=== PATIENT | male | born 1955 | race Caucasian/White ===

== ENCOUNTER 2020-07-22 07:31 | Day surgery (SDC) | payer OTHER, SELFPAY ==
[2020-07-22 07:41] VITALS: BMI 32.5
[2020-07-22 07:52] VITALS: BP 124/94; PULSE 72; RESP 18; TEMP 36.3; O2SAT 98
[2020-07-22] MEDS: Lactated Ringers 1,000 ML 50 ML IVCONT (08:06)
--- NOTE | 2020-07-22 08:06 | P.CONAN_ITS ---
FORMERLY [facility] Past Medical History Medical History Knee joint cyst Social History Social History Smoking Status: Never smoker Use of substances other than those prescribed or required for medical reasons: No Have you been hit, kicked, punched, or otherwise hurt by someone within the past year? If so, by whom?: No Advance Directives: No Advance Directives Information Provided: Yes Meds Allergies Allergy/AdvReac Type Severity Reaction Status Date / Time amlodipine [AMLODIPINE] Allergy Unknown AGGRESSION, Verified 07/22/20 07:40 increase rage amitriptyline [AMITRIPTYLINE] AdvReac Unknown AGGRESSION Verified 07/22/20 07:40 Exam Exam Date and Time: July 22, 2020805 Height,Weight and Vital Signs: Height 6 ft Weight 108.912 kg Last Vital Signs Temp 97.3 F 07/22/20 07:52 Pulse 72 07/22/20 07:52 Resp 18 07/22/20 07:52 BP 124/94 H 07/22/20 07:52 Pulse Ox 98 07/22/20 07:52 Airway Mallampati Class: II TM Dist: >3cm Neck ROM: Full Loose/Missing/Broken Teeth: No Heart: rrr+[id number] Lungs: cta b/l Assessment and Plan Assessment Anesthesia Assessment: Anesthesia Plan Discussed and Chart Reviewed Final Anesthetic Review NPO: Yes ASA Class: II Final Preanesthetic Review: No Changes in Pt Med Stat, Meds/Allgs Chart Reviewed, Consent Obtained/Reviewed and Anes Risks/Benef Reviewed Patient Risk: Low Procedure Risk: Low Assessment/Block/Sedation in SS: Assess/Block/Sedation-SS Anesthetic Plan Anesthetic Plan: MAC: Disposition: Standard PACU
[2020-07-22 09:05] VITALS: BP 109/80; PULSE 73; RESP 16; TEMP 36.2; O2SAT 97
--- NOTE | 2020-07-22 09:16 | PM.OP ---
Brief Operative Note Date of Service: 07/22/20 Pre-op diagnosis: Olmos's with low grade dysplasia Post-op diagnosis: other (Same. Hiatal hernia) Procedure: EGD with Biopsies and WATS brushings Surgeon: Asaf Rosales Anesthesia: MAC Estimated blood loss (mL): 3.0 Pathology: other (A. Esophagus at 36 B. Esophagus at 34 C. Esophagus at 32 D, Esophagus at 30 E. Esophagus at 28 F. Esophagus at 26 WATS specimens sent to outside lab) Condition: stable Disposition: other
[2020-07-22 09:20] VITALS: BP 114/85; PULSE 75; RESP 16; TEMP 36.2; O2SAT 98
[2020-07-22 09:36] VITALS: BP 120/88; PULSE 65; RESP 16; O2SAT 98
--- NOTE | 2020-07-22 09:51 | HO.POSTANES ---
Post Anesthesia Evaluation Post Anesthesia Evaluation Vital Signs: Vital Signs Temp Pulse Resp BP Pulse Ox 07/22/20 09:36 97.1 F 65 16 120/88 98 07/22/20 09:20 97.1 F 75 16 114/85 98 07/22/20 09:05 97.1 F 73 16 109/80 97 07/22/20 07:52 97.3 F 72 18 124/94 H 98 Anesthesia: Monitored Mental Status: Awake Pain Control: Satisfactory Nausea/Vomiting: None Hydration: Adequate Anesthesia-Related Issues: No Anes. Related Issues
--- NOTE | 2020-07-22 10:04 | OP_ITS ---
SURGEON: Asaf Rosales MD INDICATIONS: The patient presents for evaluation of Olmos's esophagus with low-grade dysplasia. Full consent has been obtained from him for this, including risks of bleeding and perforation. PREOPERATIVE DIAGNOSIS: Olmos's esophagus with low-grade dysplasia. POSTOPERATIVE DIAGNOSIS: PROCEDURE PERFORMED: Esophagogastroduodenoscopy with biopsies and brushing specimens obtained by WATS technique. ESTIMATED BLOOD LOSS: COMPLICATIONS: ANESTHESIA: Monitored anesthesia care. ASSISTANTS: SPECIMENS: POSTOPERATIVE DIAGNOSES: Olmos's esophagus with low-grade dysplasia, hiatal hernia. DESCRIPTION OF PROCEDURE: The patient was placed in the left lateral decubitus position. The Olympus video gastroscope was passed in the posterior oropharynx and upper esophagus under direct vision. The scope was passed slowly to the distal esophagus. The gastroesophageal junction appeared at 36 cm. Extending from this to 26 cm was a circumferential segment of Olmos's mucosa. There were several areas consistent with islands of squamous-appearing mucosa within the area of the Olmos's mucosa. There was no sign of any ulcerations, mass, nor nodules. There was no esophagitis. The scope was entered into the stomach. There was a moderate-sized hiatal hernia with the diaphragmatic indentation seen at approximately 40 cm. The hiatal hernia mucosa appeared normal. The scope was advanced to the pylorus and the duodenum was cannulated the descending portion. The duodenum including the bulb appeared normal without mass or ulceration. The scope was withdrawn back into the stomach. The gastric antrum and body appeared normal with good peristalsis. The scope was retroflexed visualizing the proximal stomach carefully, which appeared normal, without any sign of mass or ulceration. The scope was straightened and withdrawn back into the esophagus. I proceeded to obtain multiple biopsies with the cold biopsy forceps at a level of 36 cm, 34 cm, 32 cm, 30 cm, 28 cm, and 26 cm. I then proceeded to obtain specimens with the WATS brush at a level between 31 and 36 cm and at a level between 26 and 31 cm. Proximal to 26 cm, the esophageal mucosa appeared normal. The scope was then withdrawn from the patient. He tolerated the procedure well and was returned to recovery area in stable condition. IMPRESSION: 1. History of Olmos's esophagus with low-grade dysplasia. 2. Hiatal hernia. PLAN: The results of the pathology will be checked. He will continue his current regimen of the lansoprazole twice a day. We shall decide about referral to [facility] to discuss potential ablation of the Olmos's mucosa if the low-grade dysplasia persists. Certainly, if there is any evidence of high-grade dysplasia or intramucosal carcinoma, he would then definitely need referral for the ablation procedure. He was advised not to use any aspirin and NSAIDs for 1 week. If he is not going to have the ablation procedure done, I would then recommend a repeat upper endoscopy within 1 year. This has been discussed with his . MD CHARLOTTE Gan/ARELI / [id number] MTDD
== END 2020-07-22 10:08 | disposition home or self-care (01) ==
PROVIDERS: PCP Internal Medicine; Visit Provider Internal Medicine
PROC: 0DJ08ZZ Inspection of Upper Intestinal Tract, Via Natural or Artificial Opening Endoscopic (ICD-10-PCS; CPT 43235; principal; 2020-07-22 08:30)
DX: K22.711 Barrett's esophagus with high grade dysplasia (principal); K44.9 Diaphragmatic hernia without obstruction or gangrene; K20.90 Esophagitis, unspecified without bleeding; Z79.899 Other long term (current) drug therapy; Z88.8 Allergy status to other drugs, medicaments and biological substances
CPT/HCPCS: 43239; 88305

== ENCOUNTER 2020-08-12 09:33 | Outpatient (REF) | payer OTHER, SELFPAY ==
[2020-08-12 11:03] LABS: MANUAL DIFF FLAG NO
[2020-08-12 11:13] LABS: Basophils Absolute Auto 0.1 X10*3/uL (0.0-0.2); Basophils Percent Auto 0.7 % (0-2); Eosinophils Absolute Auto 0.4 X10*3/uL (0.0-0.4); Eosinophils Percent Auto 4.8 % (0-4); Hematocrit 43.2 % (42-52); Hemoglobin 14.2 g/dl (14.0-18.0); Imm Gran Abs Auto 0.01 X10*3/uL (0.00-0.03); Imm Gran Pct Auto 0.1 % (0.0-0.4); Lymphocytes Absolute Auto 2.2 X10*3/uL (1.2-4.9); Lymphocytes Percent Auto 29.3 % (20-40); Mean Corpuscular HGB Conc 32.9 g/dl (31.0-36.0); Mean Corpuscular Hemoglobin 29.6 pg (27.0-33.0); Mean Corpuscular Volume 90.2 fL (80-98); Mean Platelet Volume 9.5 fL (9.4-12.4); Monocytes Absolute Auto 0.5 X10*3/uL (0.1-1.2); Monocytes Percent Auto 6.9 % (2-11); Neutrophils Absolute Auto 4.4 X10*3/uL (2.0-8.3); Neutrophils Percent Auto 58.2 % (45-73); Platelet Count 261 X10*3/uL (160-400); Red Blood Count 4.79 X10*6/uL (4.60-5.80); Red Cell Distribution Width 12.4 % (11.0-16.0); White Blood Count 7.6 X10*3/uL (4.8-10.8)
[2020-08-12 11:41] LABS: Alanine Aminotransferase 25 U/L (0-40); Anion Gap 17 (12-20); Aspartate Amino Transferase 22 U/L (5-37); Blood Urea Nitrogen 13 mg/dL (9-16); Calcium 9.2 mg/dL (8.4-10.2); Carbon Dioxide 25 mmol/L (22-29); Chloride 102 mmol/L (96-108); Cholesterol 171 mg/dL; Estimated Glomerular Filt Rate > 60; Glucose Random 94 mg/dL (60-115); HDL Cholesterol 45 mg/dL; LDL Cholesterol Calculated 90 mg/dl; Sodium 140 mmol/L (135-145); Triglycerides 182 mg/dL
[2020-08-13 11:07] LABS: Free Prostate Spec Ag 0.1 ng/mL; Percent Free Prostate Spec Ag 33 % (calc) (>25); Prostate Specific Ag Total 0.3 ng/mL (< OR = 4.0)
== END 2020-08-12 09:34 | disposition home or self-care (01) ==
LOC: HO.HMGCLDS 09:33
PROVIDERS: PCP Internal Medicine; Visit Provider Internal Medicine
DX: I10 Essential (primary) hypertension (principal); E78.5 Hyperlipidemia, unspecified; K21.9 Gastro-esophageal reflux disease without esophagitis; K22.70 Barrett's esophagus without dysplasia; F33.42 Major depressive disorder, recurrent, in full remission; R35.1 Nocturia; Z12.5 Encounter for screening for malignant neoplasm of prostate
CPT/HCPCS: 36415; 80048; 80061; 84153; 84154; 84450; 84460; 85025

== ENCOUNTER 2021-05-12 08:18 | Outpatient (REF) | payer OTHER, SELFPAY ==
[2021-05-12 11:27] LABS: MANUAL DIFF FLAG NO
[2021-05-12 11:36] LABS: Basophils Percent Auto 0.4 % (0-2); Eosinophils Absolute Auto 0.2 X10*3/uL (0.0-0.4); Eosinophils Percent Auto 3.1 % (0-4); Hematocrit 41.8 % (42-52); Hemoglobin 14.1 g/dl (14.0-18.0); Imm Gran Abs Auto 0.01 X10*3/uL (0.00-0.03); Imm Gran Pct Auto 0.1 % (0.0-0.4); Lymphocytes Absolute Auto 1.7 X10*3/uL (1.2-4.9); Lymphocytes Percent Auto 24.4 % (20-40); Mean Corpuscular HGB Conc 33.7 g/dl (31.0-36.0); Mean Corpuscular Hemoglobin 30.5 pg (27.0-33.0); Mean Corpuscular Volume 90.3 fL (80-98); Mean Platelet Volume 9.8 fL (9.4-12.4); Monocytes Absolute Auto 0.5 X10*3/uL (0.1-1.2); Monocytes Percent Auto 7.4 % (2-11); Neutrophils Absolute Auto 4.6 X10*3/uL (2.0-8.3); Neutrophils Percent Auto 64.6 % (45-73); Platelet Count 273 X10*3/uL (160-400); Red Blood Count 4.63 X10*6/uL (4.60-5.80); White Blood Count 7.1 X10*3/uL (4.8-10.8)
[2021-05-12 12:11] LABS: Alanine Aminotransferase 21 U/L (0-40); Anion Gap 14 (12-20); Aspartate Amino Transferase 19 U/L (5-37); Blood Urea Nitrogen 12 mg/dL (9-16); Calcium 9.6 mg/dL (8.4-10.2); Carbon Dioxide 29 mmol/L (22-29); Chloride 101 mmol/L (96-108); Cholesterol 165 mg/dL; Estimated Glomerular Filt Rate > 60; Glucose Fasting 95 mg/dL (60-99); HDL Cholesterol 40 mg/dL; LDL Cholesterol Calculated 99 mg/dl; Potassium 3.4 mmol/L (3.3-5.1); Sodium 141 mmol/L (135-145); Triglycerides 130 mg/dL
== END 2021-05-12 08:19 | disposition home or self-care (01) ==
LOC: HO.HMGCLDS 08:18
PROVIDERS: PCP Internal Medicine; Visit Provider Internal Medicine
DX: E66.9 Obesity, unspecified (principal); E78.5 Hyperlipidemia, unspecified; I10 Essential (primary) hypertension; K22.70 Barrett's esophagus without dysplasia
CPT/HCPCS: 36415; 80048; 80061; 84450; 84460; 85025

== ENCOUNTER 2021-09-11 08:39 | Outpatient (REF) | payer OTHER, SELFPAY ==
[2021-09-11 11:22] LABS: MANUAL DIFF FLAG NO
[2021-09-11 11:32] LABS: Basophils Percent Auto 0.4 % (0-2); Eosinophils Absolute Auto 0.5 X10*3/uL (0.0-0.4); Eosinophils Percent Auto 7.5 % (0-4); Hematocrit 40.7 % (42.0-52.0); Hemoglobin 13.4 g/dl (14.0-18.0); Imm Gran Abs Auto 0.02 X10*3/uL (0.00-0.03); Imm Gran Pct Auto 0.3 % (0.0-0.4); Lymphocytes Absolute Auto 1.7 X10*3/uL (1.2-4.9); Lymphocytes Percent Auto 23.6 % (20-40); Mean Corpuscular HGB Conc 32.9 g/dl (31.0-36.0); Mean Corpuscular Hemoglobin 29.5 pg (27.0-33.0); Mean Corpuscular Volume 89.5 fL (80.0-98.0); Mean Platelet Volume 9.4 fL (9.4-12.4); Monocytes Absolute Auto 0.6 X10*3/uL (0.1-1.2); Monocytes Percent Auto 7.6 % (2-11); Neutrophils Absolute Auto 4.4 x10*3/uL (2.0-8.3); Neutrophils Percent Auto 60.6 % (45-73); Platelet Count 268 X10*3/uL (160-400); Red Blood Count 4.55 X10*6/uL (4.60-5.80); Red Cell Distribution Width 13.2 % (11.0-16.0); White Blood Count 7.2 X10*3/uL (4.8-10.8)
[2021-09-11 11:45] LABS: Alanine Aminotransferase 20 U/L (0-40); Anion Gap 13 (12-20); Aspartate Amino Transferase 20 U/L (5-37); Blood Urea Nitrogen 16 mg/dL (9-16); Calcium 9.4 mg/dL (8.4-10.2); Carbon Dioxide 30 mmol/L (22-29); Chloride 101 mmol/L (96-108); Cholesterol 175 mg/dL; Estimated Glomerular Filt Rate > 60; Glucose Fasting 104 mg/dL (60-99); HDL Cholesterol 42 mg/dL; LDL Cholesterol Calculated 118 mg/dl; Potassium 3.8 mmol/L (3.3-5.1); Sodium 140 mmol/L (135-145); Triglycerides 78 mg/dL
[2021-09-11 12:08] LABS: Vitamin D 25-OH Total 29.2 ng/mL (>30)
== END 2021-09-11 08:40 | disposition home or self-care (01) ==
LOC: HO.HMGCLDS 08:39
PROVIDERS: PCP Internal Medicine; Visit Provider Internal Medicine
DX: E78.5 Hyperlipidemia, unspecified (principal); F33.40 Major depressive disorder, recurrent, in remission, unspecified; I10 Essential (primary) hypertension; K22.70 Barrett's esophagus without dysplasia; E66.9 Obesity, unspecified
CPT/HCPCS: 36415; 80048; 80061; 82306; 84450; 84460; 85025

== ENCOUNTER 2022-03-12 08:28 | Outpatient (REF) | payer MEDICARE, OTHER, SELFPAY ==
[2022-03-12 11:21] LABS: MANUAL DIFF FLAG NO
[2022-03-12 11:28] LABS: Basophils Absolute Auto 0.1 X10*3/uL (0.0-0.2); Basophils Percent Auto 0.5 % (0-2); Eosinophils Absolute Auto 0.3 X10*3/uL (0.0-0.4); Eosinophils Percent Auto 2.4 % (0-4); Hematocrit 40.8 % (42.0-52.0); Hemoglobin 13.9 g/dl (14.0-18.0); Imm Gran Abs Auto 0.04 X10*3/uL (0.00-0.03); Imm Gran Pct Auto 0.4 % (0.0-0.4); Lymphocytes Absolute Auto 2.4 X10*3/uL (1.2-4.9); Mean Corpuscular HGB Conc 34.1 g/dl (31.0-36.0); Mean Corpuscular Hemoglobin 30.2 pg (27.0-33.0); Mean Corpuscular Volume 88.5 fL (80.0-98.0); Mean Platelet Volume 9.9 fL (9.4-12.4); Monocytes Absolute Auto 0.7 X10*3/uL (0.1-1.2); Monocytes Percent Auto 6.4 % (2-11); Neutrophils Absolute Auto 7.3 x10*3/uL (2.0-8.3); Neutrophils Percent Auto 68.3 % (45-73); Platelet Count 250 X10*3/uL (160-400); Red Blood Count 4.61 X10*6/uL (4.60-5.80); White Blood Count 10.7 X10*3/uL (4.8-10.8)
[2022-03-12 12:01] LABS: Alanine Aminotransferase 19 U/L (0-40); Anion Gap 14 (12-20); Aspartate Amino Transferase 21 U/L (5-37); Blood Urea Nitrogen 12 mg/dL (9-16); Calcium 9.1 mg/dL (8.4-10.2); Carbon Dioxide 28 mmol/L (22-29); Chloride 100 mmol/L (96-108); Cholesterol 188 mg/dL; Estimated Glomerular Filt Rate > 60; Glucose Fasting 99 mg/dL (60-99); HDL Cholesterol 49 mg/dL; Iron 97 mcg/dL (45-160); LDL Cholesterol Calculated 114 mg/dl; Percent Iron Saturation 27 % (15-50); Potassium 3.3 mmol/L (3.3-5.1); Sodium 139 mmol/L (135-145); Total Iron Binding Capacity 362 mcg/dL (228-428); Triglycerides 129 mg/dL; Unsaturated Iron Binding 265 ug/dL
== END 2022-03-12 08:29 | disposition home or self-care (01) ==
LOC: HO.HMGCLDS 08:28
PROVIDERS: PCP Internal Medicine; Visit Provider Internal Medicine
DX: K22.70 Barrett's esophagus without dysplasia (principal); I10 Essential (primary) hypertension; E78.5 Hyperlipidemia, unspecified; R73.01 Impaired fasting glucose; D64.9 Anemia, unspecified; E66.9 Obesity, unspecified
CPT/HCPCS: 36415; 80048; 80061; 83540; 84450; 84460; 85025

== ENCOUNTER 2022-08-31 08:58 | Outpatient (REF) | payer MEDICARE, OTHER, SELFPAY ==
[2022-08-31 11:36] LABS: MANUAL DIFF FLAG NO
[2022-08-31 11:49] LABS: Basophils Percent Auto 0.6 % (0-2); Eosinophils Absolute Auto 0.5 X10*3/uL (0.0-0.4); Eosinophils Percent Auto 6.7 % (0-4); Hematocrit 41.5 % (42.0-52.0); Hemoglobin 13.7 g/dl (14.0-18.0); Imm Gran Abs Auto 0.01 X10*3/uL (0.00-0.03); Imm Gran Pct Auto 0.1 % (0.0-0.4); Lymphocytes Percent Auto 29.7 % (20-40); Mean Corpuscular Hemoglobin 29.5 pg (27.0-33.0); Mean Corpuscular Volume 89.2 fL (80.0-98.0); Mean Platelet Volume 9.5 fL (9.4-12.4); Monocytes Absolute Auto 0.5 X10*3/uL (0.1-1.2); Monocytes Percent Auto 7.3 % (2-11); Neutrophils Absolute Auto 3.8 x10*3/uL (2.0-8.3); Neutrophils Percent Auto 55.6 % (45-73); Platelet Count 259 X10*3/uL (160-400); Red Blood Count 4.65 X10*6/uL (4.60-5.80); Red Cell Distribution Width 13.2 % (11.0-16.0); White Blood Count 6.9 X10*3/uL (4.8-10.8)
[2022-08-31 12:39] LABS: Alanine Aminotransferase 21 U/L (0-40); Anion Gap 15 (12-20); Aspartate Amino Transferase 21 U/L (5-37); Blood Urea Nitrogen 12 mg/dL (9-16); Calcium 9.1 mg/dL (8.4-10.2); Carbon Dioxide 27 mmol/L (22-29); Chloride 105 mmol/L (96-108); Cholesterol 166 mg/dL; Estimated Glomerular Filt Rate > 60; Glucose Fasting 98 mg/dL (60-99); HDL Cholesterol 49 mg/dL; Iron 103 mcg/dL (45-160); LDL Cholesterol Calculated 89 mg/dl; PSA,Total (Free>4and<10) 0.34 ng/mL (0.00-4.00); Percent Iron Saturation 33 % (15-50); Potassium 3.9 mmol/L (3.3-5.1); Sodium 143 mmol/L (135-145); Total Iron Binding Capacity 315 mcg/dL (228-428); Triglycerides 144 mg/dL; Unsaturated Iron Binding 212 ug/dL; Vitamin D 25-OH Total 27.3 ng/mL (>30)
== END 2022-08-31 08:59 | disposition home or self-care (01) ==
LOC: HO.HMGCLDS 08:58
PROVIDERS: Visit Provider Internal Medicine
DX: Z12.5 Encounter for screening for malignant neoplasm of prostate (principal); D64.9 Anemia, unspecified; E66.9 Obesity, unspecified; I10 Essential (primary) hypertension; K22.70 Barrett's esophagus without dysplasia; E78.5 Hyperlipidemia, unspecified
CPT/HCPCS: 36415; 80048; 80061; 82306; 83540; 84153; 84450; 84460; 85025

== ENCOUNTER 2022-10-08 10:15 | Outpatient (AMB) | payer MEDICARE, OTHER, SELFPAY ==
--- NOTE | 2022-10-08 10:27 | MHC.PC.OV ---
Vital Signs 10/08/22 10:30 Height 6 ft Weight 247 lb BMI 33.5 BP 120/90 H Blood Pressure Location Lt brachial Position Sitting Pulse 74 Pulse Source Pulse Oximeter Pulse Oximetry (%) 98 Oxygen Delivery Method Room Air Intake Visit Reasons: Follow HTN, lipids, anxiety Intake Note: Patient here for HTN follow up. Has been having a lot of stress lately due his son being stuck in [place] for a few weeks. Allergies amlodipine [AMLODIPINE] Allergy (Unknown, Verified 04/26/23 01:42) AGGRESSION, increase rage amitriptyline [AMITRIPTYLINE] Adverse Reaction (Unknown, Verified 04/26/23 01:42) AGGRESSION Medication List - Last Reconciled 10/08/22 by Martha Nguyen MD bupropion HCl 300 mg PO QAM cholestyramine (with sugar) 4 gram grams PO BID hydrochlorothiazide 12.5 mg PO Q12H 90 days lansoprazole 30 mg PO BID latanoprost 0.005% drps ophthalmic (eye) losartan 25 mg PO DAILY potassium chloride ER 10 mEq PO DAILY 30 days simvastatin 20 mg PO DAILY Tobacco use date assessed: 10/08/22 Fall risk assessment: No Falls in past year Last assessed Fall Risk: 10/08/22 HPI Follow HTN, lipids, anxiety HPI Details 67-year-old male with hypertension, dyslipidemia, anxiety disorder, here today for his follow-up. He has been feeling well with no complaints at present time except for having more frequent anxiety attacks lately , worried about son who is currently in [place]. [facility] Medical History Long QT interval Left anterior fascicular block Anemia Mixed anxiety depressive disorder Traumatic rupture of quadriceps tendon Dislocation of left shoulder joint Depression, major, recurrent, in remission Obesity (BMI 30.0-34.9) Olmos's esophagus determined by biopsy Essential hypertension Dyslipidemia Knee joint cyst Surgical History History of surgery History of surgery History of excision of pilonidal cyst History of removal of cyst History of colonoscopy Family History Father No problems noted. Mother No problems noted. Paternal Grandmother Diabetes mellitus Sister No problems noted. Sister No problems noted. Son No problems noted. Daughter No problems noted. Social History (Updated 04/23/23 @ 08:55 by HIRA Bear) Housing: House Alcohol intake: current Alcohol intake frequency: a few times a month Alcohol type: beer and wine Patient Tobacco Use Status: Never used Tobacco e-Cigarette/Vaping Use: Never Used Current occupational status: retired Cognitive needs: No Hearing needs: No Vision needs: Yes Questionnaire Thrive Questionnaire Date Thrive assessed: 03/17/22 EDD-7 AMB Questionnaire EDD-7 Date EDD - 7 assessed: 10/08/22 Feeling nervous, anxious, or on edge: 3 = Nearly every day Not being able to stop or control worryin = Nearly every day Worrying too much about different things: 0 = Not at all Trouble relaxin = Nearly every day Being so restless that it is hard to sit still: 1 = Several days Becoming easily annoyed or irritable: 0 = Not at all Feeling afraid as if something awful might happen: 3 = Nearly every day Total EDD-7 score (0-4 normal; 5-9 mild; 10-14 moderate; 15-21 severe): 13 Source: Developed by Drs. Asaf Thomas, Holly Henao, Maury Jennings and colleagues, with an educational tiffanie from [employer]. EDD-7 Assessment Billing EDD-7 Assessment Tool: EDD-7 Assessment 89535 Review of Systems Const Reports no additional complaints Eyes Denies change in vision ENT Reports Normal hearing present, Denies dizziness, Denies nasal congestion, Denies nasal discharge and Denies sore throat Card Denies chest pain, Denies lightheadedness, Denies palpitations and Denies dyspnea Resp Denies chest congestion, Denies cough and Denies dyspnea GI Denies abdominal pain, Denies melena, Denies hematochezia, Denies change in bowel habits, Denies heartburn (controlled with lansoprazole , better after ablation of lower 3rd of esopha), Denies nausea and Denies vomiting Denies dysuria, Denies urinary frequency and Denies urinary urgency Musc Denies arthralgias, Denies joint swelling and Denies limited range of motion Skin/Breast Denies lesions and Denies rash Neuro Reports Normal hearing present, Denies dizziness and Denies Sensory deficit (Neuro) Psych Reports as per HPI Endo Denies polydipsia, Denies polyuria and Denies palpitations Physical exam (Primary Care) Vital Signs: Last Vital Signs Pulse 74 10/08/22 10:30 BP 120/90 H 10/08/22 10:30 Pulse Ox 98 10/08/22 10:30 Oxygen Delivery Method Room Air 10/08/22 10:30 BMI result Body Mass Index 33.5 BMI Assessment/Plan discussion: High BMI High, discussed plan: lifestyle, weight reduction, dietary and physical activity Tobacco/Smoking Status: Tobacco use Status Tobacco use date assessed 10/08/22 10/08/22 10:38 Patient Tobacco Use Status Never used Tobacco 10/08/22 10:29 e-Cigarette/Vaping Use Never Used 10/08/22 10:29 Thrive Assessment: Date of Thrive Assessment Date Thrive assessed 03/17/22 10/08/22 10:29 Const Other: Alert oriented x3 no acute distress noted ambulatory normal gait HENMT Head: Yes atraumatic General nose exam: Normal external nose present and No nasal discharge present Face and sinus: Yes face symmetric Mouth: Normal oral and palatal mucosa present Eyes General: appearance normal, both eyes and all related structures Neck Neck: Yes full ROM, Yes no lymphadenopathy and Yes supple Resp Auscultation: clear to auscultation bilaterally Cardio Other: S1-S2 present regular rate and rhythm GI Palpation (GI): Soft to palpation, nontender, no guarding and not rigid Back/Spine/Pelvis Back: No back tenderness Skin General skin exam: no rashes or lesions noted Neuro Cranial nerves: Yes Normal hearing present Sensory Exam: No Sensory deficit (Neuro) Extrem General: Yes full ROM, Yes no joint enlargement, Yes no pedal edema and Yes normal gait Psych Appearance: grossly normal Mental Status: mental status grossly normal Speech and movement: Normal speech and movement present Affect: normal affect Attitude: cooperative Thought process: Normal thought process present Thought content: Normal thought content present Results Reviewed Results Reviewed: ENTERED: 08/31/22 [facility]ERTO CARABALLO: ORDERED: CBC Auto Diff Test Result Flag Reference Site WBC 6.9 4.8-10.8 X10*3/uL RBC 4.65 4.60-5.80 X10*6/uL HGB 13.7 L 14.0-18.0 g/dl HCT 41.5 L 42.0-52.0 % MCV 89.2 80.0-98.0 fL MCH 29.5 27.0-33.0 pg MCHC 33.0 31.0-36.0 g/dl RDW 13.2 11.0-16.0 % PLT 259 160-400 X10*3/uL MPV 9.5 9.4-12.4 fL Neut Pct Auto 55.6 45-73 % ImGran Pct Auto 0.1 0.0-0.4 % Lymp Pct Auto 29.7 20-40 % [place] Pct Auto 7.3 2-11 % Eos Pct Auto 6.7 H 0-4 % Baso Pct Auto 0.6 0-2 % NRBC Pct Auto 0.0 0.0-0.2 /100WBC ANC Neut Abs # 3.8 2.0-8.3 x10*3/uL ImGran Abs Auto 0.01 0.00-0.03 X10*3/uL Lymph Abs Auto 2.0 1.2-4.9 X10*3/uL [place] Abs Auto 0.5 0.1-1.2 X10*3/uL Eos Abs Auto 0.5 H 0.0-0.4 X10*3/uL Baso Abs Auto 0.0 0.0-0.2 X10*3/uL NRBC Abs Auto 0.000 0.0-0.012 X10*3/uL ENTERED: 08/31/22 [facility]: ORDERED: Met Prof Fast, IRON PROF, AST, ALT, Lipid Panel, PSA W/ REFLEX, Vitamin Test Result Flag Reference Site Sodium 143 135-145 mmol/L Potassium 3.9 3.3-5.1 mmol/L CL 105 96-108 mmol/L CO2 27 22-29 mmol/L Gap 15 12-20 BUN 12 9-16 mg/dL Creat 0.88 0.5-1.4 mg/dL EGFR > 60 NOTE: For -[place] individuals, multiply the result by 1.210. Chronic Kidney Disease: Estimated GFR < 60 mL/min/1.73m2 Severe Kidney Disease: Estimated GFR < 15 mL/min/1.73m2 FBS 98 60-99 mg/dL CA 9.1 8.4-10.2 mg/dL Iron 103 45-160 mcg/dL TIBC 315 228-428 mcg/dL Saturation 33 15-50 % UIBC 212 ug/dL AST (GOT) 21 5-37 U/L ALT (GPT) 21 0-40 U/L Triglyceride 144 mg/dL Desirable Triglyceride: less than 150 mg/dL Borderline High Triglyceride 150-199 mg/dL High Triglyceride: 200-499 mg/dL Very High Triglyceride: greater than or equal to 5OO mg/dL Chol 166 mg/dL Desirable Cholesterol: less than 200 mg/dL Borderline High Cholesterol: 200-239 mg/dL High Cholesterol: greater than 239 mg/dL LDL Calculated 89 mg/dl Desirable LDL: less than 100 mg/dL Near Optimal/Above Optimal LDL: 110-129 mg/dL Borderline High LDL: 130-159 mg/dL High LDL: 160-189 mg/dL Very High LDL: greater than or equal to 190 mg/dL HDL 49 mg/dL Desirable HDL: greater than 40 mg/dL Note: This HDL assay may give artificially low results in patients with liver disease. PSA W/ REFLEX 0.34 0.00-4.00 ng/mL A Free PSA was not performed: The percentage of Free PSA can be used to enhance the differentiation of prostate cancer from benign prostatic disease in subjects whose PSA levels are between 4.0 and 10.0 ng/mL. For subjects whose PSA levels are below 4.0 or above 10.0 ng/mL, the risk of prostate cancer is determined on the basis of the PSA alone. Therefore the % Free PSA is recommended only for those subjects whose PSA levels are between 4.0 and 10.0 ng/mL. PSA methodology: [employer] i Chemiluminescent Microparticle Immunoassay (CMIA) Vit D 25-OH Tot 27.3 >30 ng/mL Health Based Reference Values* < 20 ng/mL Deficient 20-30 ng/mL Insufficient > 30 ng/mL Sufficient Assessment and Plan Assessment & Plan (1) Dyslipidemia: Code(s): E78.5 - Hyperlipidemia, unspecified (2) Obesity (BMI 30.0-34.9): Code(s): E66.9 - Obesity, unspecified (3) Mixed anxiety depressive disorder: Code(s): F41.8 - Other specified anxiety disorders Plan: Continue with bupropion HCL 300 mg daily in a.m. in addition to trazodone 50 mg at bedtime (4) Vitamin D deficiency: Code(s): E55.9 - Vitamin D deficiency, unspecified Plan: Continue taking [id number] vitamin D3 at 2000 units daily (5) Long QT interval: Code(s): R94.31 - Abnormal electrocardiogram [ECG] [EKG] Plan: Referred to cardiology for further evaluation (6) Left anterior fascicular block: Code(s): I44.4 - Left anterior fascicular block Plan: Referred to cardiology clinic for further evaluation (7) Olmos's esophagus determined by biopsy: Code(s): K22.70 - Olmos's esophagus without dysplasia Plan: Continued on lansoprazole 30 mg 1 capsule twice a day, followed by GI clinic booster (8) Anemia: Code(s): D64.9 - Anemia, unspecified Plan: Likely due to his Olmos's esophagus. (9) Essential hypertension: Code(s): I10 - Essential (primary) hypertension Plan: Blood pressure stable controlled on present treatment. Continued on losartan 25 mg daily, and hydrochlorothiazide 12.5 mg daily in a.m. Orders: Orders Basic Metabolic Panel Fasting 3 Months D64.9 - Anemia, unspecified, E66.9 - Obesity, unspecified, K22.70 - Olmos's esophagus without dysplasia, I10 - Essential (primary) hypertension, E78.5 - Hyperlipidemia, unspecified Alanine Aminotransferase 10/08/22 D64.9 - Anemia, unspecified, E66.9 - Obesity, unspecified, K22.70 - Olmos's esophagus without dysplasia, I10 - Essential (primary) hypertension, E78.5 - Hyperlipidemia, unspecified Lipid Panel 10/08/22 D64.9 - Anemia, unspecified, E66.9 - Obesity, unspecified, K22.70 - Olmos's esophagus without dysplasia, I10 - Essential (primary) hypertension, E78.5 - Hyperlipidemia, unspecified Complete Blood Count Auto Diff 10/08/22 D64.9 - Anemia, unspecified, E66.9 - Obesity, unspecified, K22.70 - Olmos's esophagus without dysplasia, I10 - Essential (primary) hypertension, E78.5 - Hyperlipidemia, unspecified Aspartate Amino Transferase 10/08/22 D64.9 - Anemia, unspecified, E66.9 - Obesity, unspecified, K22.70 - Olmos's esophagus without dysplasia, I10 - Essential (primary) hypertension, E78.5 - Hyperlipidemia, unspecified Vitamin D 25-OH Total 10/08/22 D64.9 - Anemia, unspecified, E66.9 - Obesity, unspecified, K22.70 - Olmos's esophagus without dysplasia, I10 - Essential (primary) hypertension, E78.5 - Hyperlipidemia, unspecified, E55.9 - Vitamin D deficiency, unspecified Referrals Cardiology Referral I44.4 - Left anterior fascicular block, R94.31 - Abnormal electrocardiogram [ECG] [EKG] Medications: New cholecalciferol (vitamin D3) 1,250 mcg PO QWEEK 13 caps 0RF 3 months E55.9 - Vitamin D deficiency, unspecified Coding Level of Care Code Est Pt Level 3 (75879) Diagnoses Dyslipidemia E78.5 Obesity (BMI 30.0-34.9) E66.9 Mixed anxiety depressive disorder F41.8 Vitamin D deficiency E55.9 Long QT interval R94.31 Left anterior fascicular block I44.4 Olmos's esophagus determined by biopsy K22.70 Anemia D64.9 Essential hypertension I10 Additional Codes EDD-7 Assessment Billing - EDD-7 Assessment Tool: EDD-7 Assessment 44686 ([id number])
[2022-10-08 10:30] VITALS: BP 120/90; PULSE 74; O2SAT 98; BMI 33.5
== END 2022-10-08 11:23 | disposition home or self-care (01) ==
LOC: HO.HMGC 10:15
PROVIDERS: PCP Internal Medicine; Visit Provider Internal Medicine
DX: E78.5 Hyperlipidemia, unspecified (principal); E66.9 Obesity, unspecified; Z68.33 Body mass index [BMI] 33.0-33.9, adult; F41.8 Other specified anxiety disorders; E55.9 Vitamin D deficiency, unspecified; R94.31 Abnormal electrocardiogram [ECG] [EKG]; I44.4 Left anterior fascicular block; K22.70 Barrett's esophagus without dysplasia; D64.9 Anemia, unspecified; I10 Essential (primary) hypertension
CPT/HCPCS: 99213

== ENCOUNTER → 2022-12-22 10:44 | Outpatient (BNVA) | payer MEDICARE, OTHER, SELFPAY | PROVIDERS: PCP Internal Medicine; Referring Provider Internal Medicine; Visit Provider Internal Medicine | DX: I44.4 Left anterior fascicular block (principal) | CPT/HCPCS: 93005; 99202 ==

== ENCOUNTER → 2023-01-28 07:57 | Outpatient (REF) | payer MEDICARE, OTHER, SELFPAY ==
--- NOTE | 2023-01-28 08:01 | CA_ITS ---
Acquisition Time: 2023-01-28 09:22:58 Total Exercise Time: 00:06:31 Test Indications: Abnormal ECG Medications: Protocol: TAY Max HR: 134 BPM 87% of Pred: 154 BPM Max BP: 182/096 mmHG Max Work Load: 7.7 METS Exercise stress test exercise 6 min 31 sec of Tay protocol acheving 86% MPHR, with moderate to severe SOB, wothout chest discomfort, with isolated PACs and PVCs, with resting hypertension, max BP with exercise 176/102 & 182/96, without EKG changes. BP returned to baseline during recovery. Test reviewed with Dr. Cornelius. Referred By: Alan Niño Overread By: IRINA CORNELIUS MD
--- NOTE | 2023-01-28 08:01 | CA_ITS ---
Transthoracic Echocardiogram Patient (Last, First, Middle): Evans High A Gender: Male Date of : 1955 Age: 67 Procedure Date: 01/28/2023 Procedure Type: Transthoracic Echocardiogram Location: OP Height: 182.88 cm Weight: 113.4 kg BSA: 2.34 m2 Heart Rate: bpm BP: 140 / 92 mmHg Analysis Lead: BRITTNEY Referring MD: Alan Niño MD Motor Block Mechanic: Jhonathan Cornelius MD Symptoms: I44.4 - Left anterior fascicular block Study Quality: Adequate with contrast ECG Rhythm: Sinus Conclusions: - 1. Normal LV systolic function with grade 1 diastolic dysfunction 2. Mild aortic regurgitation 3. Moderately dilated ascending aorta at 4.5 cm 4. Normal RV systolic pressure 5. No pericardial effusion Findings Procedure Information Contrast agent, definity, is being given per protocol without apparent complications. Left Ventricle Normal left ventricular size, thickness, and systolic function. The visually estimated ejection fraction is between 55-60%. Spectral Doppler is indicative of an impaired relaxation filling pattern. E/E prime ratio is <8, consistent with normal filling pressures. Evidence suggests grade I (mild) diastolic dysfunction. Right Ventricle Normal right ventricular cavity size and systolic function. Atria The left atrium is likely dilated. Interatrial shunt cannot be excluded. The right atrium is normal in size. Aortic Valve Normal aortic valve structure and function. There is no aortic valve stenosis. There is mild aortic valve regurgitation. Mitral Valve Normal mitral valve structure and function. There is trace mitral valve regurgitation. There is no mitral valve stenosis. Pulmonic Valve The pulmonic valve is likely normal. There is trace pulmonic valve regurgitation. Tricuspid Valve Normal tricuspid valve structure. There is mild tricuspid valve regurgitation. The right ventricular systolic pressure is normal. The right ventricular systolic pressure is 33 mmHg. Normal right atrial pressure. There is no evidence of pulmonary hypertension. Great Vessels The pulmonary artery was not well visualized. There is moderate dilatation of the ascending aorta measuring 4.50 cm. Venous The inferior vena cava is normal in size and collapses greater than 50% with inspiration. Pericardium/Pleural There is no evidence of pericardial effusion. Prior Study Comparison No prior study available for comparison. Measurements 2D Linear Measurements IVSd: 1.01 0.6-0.9/0.6-1.0 cm LVIDd: 4.68 3.9-5.3/4.2-5.9 cm LVIDd Index: 2.00 2.4-3.2/2.2-3.1 cm/m2 LVIDs: 3.04 2.0-3.6 cm LVPWd: 1.09 0.7-1.1 cm LA Diam: 3.40 2.7-3.8/3.0-4.0 cm LAIDs Index: 1.45 1.5-2.3 cm/m2 LV Mass: 217.53 67-162/88-224 g LV Mass Index: 92.96 43-95/49-115 g/m2 LVOT Diam: 2.20 3.0+(-)1.3 cm 2D Systolic Function EF 4C: 54.20 >55% EF 2C: 54.10 >55% Mitral Valve MV Pk E: 0.78 MV PK A: 0.82 MV Decel Time: 192.00 E/A: 0.90 E'Lateral: 7.62 E'Medial: 4.68 E/E' Med: 16.60 E/E' Lat: 10.20 PHT: 56.00 MVA PHT: 3.93 Decel [place]: 4.03 Aortic Valve AoV Pk Neymar: 1.24 AoV Mn Neymar: 0.86 AoV VTI: 0.30 AoV Pk Grad: 6.00 Aov Mn Grad: 3.00 GISELLE Cont.VTI: 3.25 AI Pk Nemyar: 4.33 AI [place]: 2.06 LVOT LVOT Pk Neymar: 1.28 LVOT Mn Neymar: 0.83 LVOT VTI: 0.26 LVOT Pk Grad: 7.00 LVOT Mn Grad: 3.00 LVOT Diam: 2.20 LVOT Area: 3.80 Diastolic Function MV Pk E: 0.78 MV Pk A: 0.82 E/A: 0.90 E'Medial: 4.68 E/E' Med: 16.60 E' Laterial: 7.62 E/E' Lat: 10.20 Right Ventricle TAPSE (mm): 23.30 TVS' Neymar: 9.57 Tricuspid Valve TR Pk Neymar: 2.52 TR Pk Grad: 25.00 RA Press: 8.00 RVSP: 33.00 Great Vessels Aorta Sinus of Valsalva: 4.37 2.0-3.[address] [place]: 4.39 1.7-3.4 cm Ao Asc: 4.50 2.1-3.4 cm Updated in Other Vendor System with Status of Final Jhonathan Cornelius MD electronically signed on 01/29/2023 12:19:07 PM with status of Final
== END ==
LOC: HO.CARD 07:57
PROVIDERS: PCP Internal Medicine; Visit Provider Internal Medicine
DX: I44.4 Left anterior fascicular block (principal); I25.10 Atherosclerotic heart disease of native coronary artery without angina pectoris
CPT/HCPCS: 93017; 93306; Q9957

== ENCOUNTER → 2023-01-28 08:01 | Outpatient (BNV) | payer MEDICARE, OTHER, SELFPAY | PROVIDERS: PCP Internal Medicine; Visit Provider Internal Medicine Cardiovascular Disease | DX: R94.31 Abnormal electrocardiogram [ECG] [EKG] (principal) | CPT/HCPCS: 93016; 93018; 93306 ==

== ENCOUNTER 2023-04-12 08:18 | Outpatient (REF) | payer MEDICARE, OTHER, SELFPAY ==
[2023-04-12 12:36] LABS: Anion Gap 14 (12-20); Blood Urea Nitrogen 12 mg/dL (9-16); Calcium 9.4 mg/dL (8.4-10.2); Carbon Dioxide 26 mmol/L (22-29); Chloride 104 mmol/L (96-108); Estimated Glomerular Filt Rate > 60; Glucose Fasting 95 mg/dL (60-99); Potassium 3.8 mmol/L (3.3-5.1); Sodium 140 mmol/L (135-145)
== END 2023-04-12 08:19 | disposition home or self-care (01) ==
LOC: HO.HMGCLDS 08:18
PROVIDERS: PCP Internal Medicine; Visit Provider Internal Medicine
DX: D64.9 Anemia, unspecified (principal); E66.9 Obesity, unspecified; K22.70 Barrett's esophagus without dysplasia; I10 Essential (primary) hypertension; E78.5 Hyperlipidemia, unspecified
CPT/HCPCS: 36415; 80048

== ENCOUNTER 2023-04-14 10:40 | Outpatient (AMB) | payer MEDICARE, OTHER, SELFPAY ==
--- NOTE | 2023-04-14 10:46 | MHC.PC.OV ---
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 Accompanied by: Self / Same As Patient Allergies amlodipine [AMLODIPINE] Allergy (Unknown, Verified 04/26/23 01:42) AGGRESSION, increase rage amitriptyline [AMITRIPTYLINE] Adverse Reaction (Unknown, Verified 04/26/23 01:42) AGGRESSION Medication List - Last Reconciled 04/26/23 by Martha Nguyen MD bupropion HCl 300 mg PO QAM cholecalciferol (vitamin D3) 1,250 mcg PO QWEEK 3 months cholestyramine (with sugar) 4 gram grams PO BID hydrochlorothiazide 12.5 mg PO Q12H 90 days lansoprazole 30 mg PO BID latanoprost 0.005% drps ophthalmic (eye) losartan 25 mg PO DAILY potassium chloride ER 10 mEq PO DAILY simvastatin 20 mg PO DAILY trazodone 50 mg PO BEDTIME PRN Tobacco use date assessed: 10/08/22 Fall risk assessment: No Falls in past year Last assessed Fall Risk: 04/14/23 Dental Screening Dental Screen Date: 04/14/23 Did you have a dental visit in the last 12 months?: Yes Did you have a dental problem in the last 6 months where you did not have access to dental care?: No Was dental information given to patient?: Patient has dentist HPI Follow HTN, lipids, anxiety HPI Details 67-year-old male with hypertension, lipids and generalized anxiety disorder, here today for his follow-up exam. He has been feeling well, with no complaints at present time, in taking his medications as directed. He however has recurrent lump on his right mid back present which is getting beer and gets irritated when he leans backwards. Would like a referral to get mass surgically removed. [facility] Medical History Long QT interval Left anterior fascicular block Anemia Mixed anxiety depressive disorder Traumatic rupture of quadriceps tendon Dislocation of left shoulder joint Depression, major, recurrent, in remission Obesity (BMI 30.0-34.9) Olmos's esophagus determined by biopsy Essential hypertension Dyslipidemia Knee joint cyst Surgical History History of surgery History of surgery History of excision of pilonidal cyst History of removal of cyst History of colonoscopy Family History Father No problems noted. Mother No problems noted. Paternal Grandmother Diabetes mellitus Sister No problems noted. Sister No problems noted. Son No problems noted. Daughter No problems noted. Social History (Updated 04/23/23 @ 08:55 by HIRA Bear) Housing: House Alcohol intake: current Alcohol intake frequency: a few times a month Alcohol type: beer and wine Patient Tobacco Use Status: Never used Tobacco e-Cigarette/Vaping Use: Never Used Current occupational status: retired Cognitive needs: No Hearing needs: No Vision needs: Yes Questionnaire Thrive Questionnaire Date Thrive assessed: 03/17/22 AUDIT C Alcohol Use Questionnaire (AUDIT-C) 1. How often do you have a drink containing alcohol?: Monthly or less 2. How many drinks containing alcohol do you have on a typical day when you are drinking?: 1 or 2 3. How often do you have six or more drinks on one occasion?: Never Total Score: 1 EDD-7 AMB Questionnaire EDD-7 Date EDD - 7 assessed: 04/14/23 Feeling nervous, anxious, or on edge: 1 = Several days Not being able to stop or control worryin = Several days Worrying too much about different things: 1 = Several days Trouble relaxin = Several days Being so restless that it is hard to sit still: 1 = Several days Becoming easily annoyed or irritable: 1 = Several days Feeling afraid as if something awful might happen: 1 = Several days Total EDD-7 score (0-4 normal; 5-9 mild; 10-14 moderate; 15-21 severe): 7 Source: Developed by Drs. Asaf Thomas, Holly Henao, Maury Jennings and colleagues, with an educational tiffanie from [employer] EDD-7 Assessment Billing EDD-7 Assessment Tool: EDD-7 Assessment 20654 Review of Systems Const Denies body aches, Denies fever(s) and Denies headache(s) Eyes Denies change in vision ENT Reports Normal hearing present, Denies dizziness, Denies headache(s), Denies nasal congestion, Denies nasal discharge and Denies sore throat Card Denies chest pain, Denies lightheadedness, Denies palpitations and Denies dyspnea Resp Denies chest congestion, Denies cough, Denies dyspnea and Denies wheezing GI Denies abdominal pain, Denies melena, Denies hematochezia, Denies change in bowel habits, Denies heartburn (controlled with lansoprazole , better after ablation of lower 3rd of esopha), Denies nausea and Denies vomiting Denies dysuria, Denies urinary frequency and Denies urinary urgency Musc Denies arthralgias, Denies joint swelling and Denies limited range of motion Skin/Breast Denies rash Neuro Reports Normal hearing present, Denies dizziness, Denies headache(s) and Denies Sensory deficit (Neuro) Psych Reports as per HPI Endo Denies polydipsia, Denies polyuria and Denies palpitations Vickey/Lymph Denies easy bruising Aller/Immun Denies seasonal rhinorrhea and Denies wheezing Physical exam (Primary Care) Vital Signs: Last Vital Signs Pulse 74 04/14/23 10:47 BP 130/80 04/14/23 10:47 Pulse Ox 98 04/14/23 10:47 BMI result Body Mass Index 32.1 BMI Assessment/Plan discussion: High BMI High, discussed plan: lifestyle, weight reduction, dietary and physical activity Tobacco/Smoking Status: Tobacco use Status Tobacco use date assessed 10/08/22 04/14/23 10:49 Patient Tobacco Use Status Never used Tobacco 04/14/23 10:49 e-Cigarette/Vaping Use Never Used 04/14/23 10:49 Thrive Assessment: Date of Thrive Assessment Date Thrive assessed 03/17/22 04/14/23 10:49 Const Other: Alert oriented x3 no acute distress noted ambulatory normal gait HENMT Head: Yes atraumatic Ears: hearing grossly normal bilaterally, TM's normal bilaterally and EAC's normal General nose exam: Normal external nose present and No nasal discharge present Face and sinus: Yes face symmetric Mouth: Normal oral and palatal mucosa present Eyes General: appearance normal, both eyes and all related structures Neck Neck: Yes full ROM, Yes no lymphadenopathy and Yes supple Chest Chest palpation & inspection: normal inspection of the chest Resp Auscultation: clear to auscultation bilaterally Cardio Other: S1-S2 present regular rate and rhythm GI Palpation (GI): Soft to palpation, nontender, no guarding and not rigid Back/Spine/Pelvis Back: No back tenderness Skin Other: Nodular mass on right mid back present, nontender to palpation, slightly fluctuant, with no active drainage Neuro Cranial nerves: Yes Normal hearing present Sensory Exam: No Sensory deficit (Neuro) Extrem General: Yes full ROM, Yes no joint enlargement, Yes no pedal edema and Yes normal gait Psych Appearance: grossly normal Mental Status: mental status grossly normal Speech and movement: Normal speech and movement present Affect: normal affect Attitude: cooperative Thought process: Normal thought process present Thought content: Normal thought content present Results Reviewed Results Reviewed: ENTERED: 04/12/23 ROBERTO CARABALLO: ORDERED: Met Prof Fast Test Result Flag Reference Site Sodium 140 135-145 mmol/L Potassium 3.8 3.3-5.1 mmol/L CL 104 96-108 mmol/L CO2 26 22-29 mmol/L Gap 14 12-20 BUN 12 9-16 mg/dL Creat 0.93 0.5-1.4 mg/dL EGFR > 60 NOTE: For -Swiss individuals, multiply the result by 1.210. Chronic Kidney Disease: Estimated GFR < 60 mL/min/1.73m2 Severe Kidney Disease: Estimated GFR < 15 mL/min/1.73m2 FBS 95 60-99 mg/dL CA 9.4 Assessment and Plan Assessment & Plan (1) Skin lesion of back: Code(s): L98.9 - Disorder of the skin and subcutaneous tissue, unspecified Plan: Referred to general surgery (2) Anemia: Code(s): D64.9 - Anemia, unspecified Qualifiers: Anemia type: unspecified type Qualified Code(s): D64.9 - Anemia, unspecified Plan: Iron profile and a repeat CBC ordered (3) Mixed anxiety depressive disorder: Code(s): F41.8 - Other specified anxiety disorders Plan: Stable controlled on present treatment, continue with bupropion HCL 300 mg daily in a.m. and takes trazodone as needed for sleep and acute anxiety attacks (4) Essential hypertension: Code(s): I10 - Essential (primary) hypertension Plan: Blood pressure at goal of less than 130/80. Continue with current medication. Reinforced importance of following a low sodium diet, getting regular exercise, and lowering stress levels. Orders: Orders Basic Metabolic Panel Fasting 08/19/23 D64.9 - Anemia, unspecified, F41.8 - Other specified anxiety disorders, K22.70 - Olmos's esophagus without dysplasia, I10 - Essential (primary) hypertension, E78.5 - Hyperlipidemia, unspecified Lipid Panel 08/19/23 D64.9 - Anemia, unspecified, F41.8 - Other specified anxiety disorders, K22.70 - Olmos's esophagus without dysplasia, I10 - Essential (primary) hypertension, E78.5 - Hyperlipidemia, unspecified Alanine Aminotransferase 08/19/23 D64.9 - Anemia, unspecified, F41.8 - Other specified anxiety disorders, K22.70 - Olmos's esophagus without dysplasia, I10 - Essential (primary) hypertension, E78.5 - Hyperlipidemia, unspecified Aspartate Amino Transferase 08/19/23 D64.9 - Anemia, unspecified, F41.8 - Other specified anxiety disorders, K22.70 - Olmos's esophagus without dysplasia, I10 - Essential (primary) hypertension, E78.5 - Hyperlipidemia, unspecified Vitamin D 25-OH Total 08/19/23 D64.9 - Anemia, unspecified, F41.8 - Other specified anxiety disorders, K22.70 - Olmos's esophagus without dysplasia, I10 - Essential (primary) hypertension, E78.5 - Hyperlipidemia, unspecified Complete Blood Count Auto Diff 08/19/23 D64.9 - Anemia, unspecified, F41.8 - Other specified anxiety disorders, K22.70 - Olmos's esophagus without dysplasia, I10 - Essential (primary) hypertension, E78.5 - Hyperlipidemia, unspecified IRON PROFILE 08/19/23 D64.9 - Anemia, unspecified, F41.8 - Other specified anxiety disorders, K22.70 - Olmos's esophagus without dysplasia, I10 - Essential (primary) hypertension, E78.5 - Hyperlipidemia, unspecified Referrals General Surgery Referral L98.9 - Disorder of the skin and subcutaneous tissue, unspecified Coding Level of Care Code Est Pt Level 4 (62146) Diagnoses Skin lesion of back L98.9 Anemia, unspecified type D64.9 Anemia type: unspecified type Mixed anxiety depressive disorder F41.8 Essential hypertension I10 Additional Codes EDD-7 Assessment Billing - EDD-7 Assessment Tool: EDD-7 Assessment [id number] ([id number])
[2023-04-14 10:47] VITALS: BP 130/80; PULSE 74; O2SAT 98; BMI 32.1
== END 2023-04-14 12:10 | disposition home or self-care (01) ==
PROVIDERS: Visit Provider Internal Medicine
DX: I10 Essential (primary) hypertension (principal); L98.9 Disorder of the skin and subcutaneous tissue, unspecified; D64.9 Anemia, unspecified; F41.8 Other specified anxiety disorders
CPT/HCPCS: 99214

== ENCOUNTER 2023-04-23 08:37 | Outpatient (AMB) | payer MEDICARE, OTHER, SELFPAY ==
--- NOTE | 2023-04-23 08:46 | MHC.OFFVIS ---
Intake Vital Signs 04/23/23 08:47 Height 6 ft Weight 235 lb BMI 31.9 BP 145/81 H Blood Pressure Location Rt brachial Position Sitting Pulse 71 Intake Visit Reasons: Skin lesion on back Intake Note: Patient here for growth on rt upper back. C/o itch, pain, enlarging. Reports hx of cysts on back. Had multiple surgically excised in the past. Healthcare Facility Administrator Required: No Accompanied by: Self / Same As Patient Allergies amlodipine [AMLODIPINE] Allergy (Unknown, Verified 04/23/23 08:53) AGGRESSION, increase rage amitriptyline [AMITRIPTYLINE] Adverse Reaction (Unknown, Verified 04/23/23 08:53) AGGRESSION HPI HPI Comments History of Present Illness Details Patient presents with a recurrent sebaceous cyst a right mid back. His increasing size, become more symptomatic. He wished to have removed. He had this attempted excision many years ago which has resulted in persistence of the cyst. Patient has had multiple cysts excised in the past. Chart was reviewed patient evaluated. [facility] Medical History Long QT interval Left anterior fascicular block Anemia Mixed anxiety depressive disorder Traumatic rupture of quadriceps tendon Dislocation of left shoulder joint Depression, major, recurrent, in remission Obesity (BMI 30.0-34.9) Olmos's esophagus determined by biopsy Essential hypertension Dyslipidemia Knee joint cyst Surgical History History of surgery History of surgery History of excision of pilonidal cyst History of removal of cyst History of colonoscopy Family History Father No problems noted. Mother No problems noted. Paternal Grandmother Diabetes mellitus Sister No problems noted. Sister No problems noted. Son No problems noted. Daughter No problems noted. Social History (Updated 04/23/23 @ 08:55 by HIRA Bear) Housing: House Alcohol intake: current Alcohol intake frequency: a few times a month Alcohol type: beer and wine Patient Tobacco Use Status: Never used Tobacco e-Cigarette/Vaping Use: Never Used Current occupational status: retired Cognitive needs: No Hearing needs: No Vision needs: Yes Physical Exam Vital Signs: Last Vital Signs Pulse 71 04/23/23 08:47 BP 145/81 H 04/23/23 08:47 BMI result Body Mass Index 31.9 Chest Other: Chest breath sounds bilaterally, HS 1 in 2 GI Other: Abdomen soft, corpulent, benign Back/Spine/Pelvis Other: Right mid back demonstrates approximately 4 x 4 cm large recurrent sebaceous cyst with old scar in the region. Assessment & Plan Assessment & Plan (1) Sebaceous cyst: Code(s): L72.3 - Sebaceous cyst Plan Risks, benefits, alternatives of sebaceous cyst excision of the right mid back reviewed the patient included but not limited to bleeding, infection, recurrence, numbness, pain, scarring, seroma formation, wound dehiscence and the patient wishes to proceed. All questions were answered. Arrangements will be made for this. Coding Level of Care Code New Pt Level 4 (96371) Diagnoses Sebaceous cyst L72.3
[2023-04-23 08:47] VITALS: BP 145/81; PULSE 71; BMI 31.9
== END 2023-04-23 09:05 | disposition home or self-care (01) ==
PROVIDERS: PCP Internal Medicine; Referring Provider Internal Medicine; Visit Provider Surgery
DX: L72.3 Sebaceous cyst (principal)
CPT/HCPCS: 99204

== ENCOUNTER → 2023-04-23 08:37 | Outpatient (BNVA) | payer MEDICARE, OTHER, SELFPAY | PROVIDERS: PCP Internal Medicine; Referring Provider Internal Medicine; Visit Provider Surgery ==

== ENCOUNTER 2023-05-18 13:36 | Outpatient (AMB) | payer MEDICARE, OTHER, SELFPAY ==
[2023-05-18 13:45] VITALS: BP 104/74; PULSE 91; BMI 31.2
--- NOTE | 2023-05-18 13:45 | A.OFFVIS_ITS ---
Intake Vital Signs 05/18/23 13:45 Height 6 ft Weight 230 lb 2.601 oz BMI 31.2 BP 104/74 Blood Pressure Location Lt brachial Position Sitting Pulse 91 Intake Visit Reasons: 3 month follow up Intake Note: 3 month follow up [place] Seamer Required: No Accompanied by: Self / Same As Patient Allergies amlodipine [AMLODIPINE] Allergy (Unknown, Verified 05/18/23 13:47) AGGRESSION, increase rage amitriptyline [AMITRIPTYLINE] Adverse Reaction (Unknown, Verified 05/18/23 13:47) AGGRESSION Medication List - Last Reconciled 05/18/23 by Alan Niño MD bupropion HCl 300 mg PO QAM cholecalciferol (vitamin D3) 1,250 mcg PO QWEEK 3 months cholestyramine (with sugar) 4 gram grams PO BID hydrochlorothiazide 12.5 mg PO Q12H 90 days lansoprazole 30 mg PO BID latanoprost 0.005% drps ophthalmic (eye) losartan 25 mg PO DAILY potassium chloride ER 10 mEq PO DAILY simvastatin 20 mg PO DAILY trazodone 50 mg PO BEDTIME PRN HPI HPI Comments History of Present Illness Details Evans returns for follow-up. He was recently seen in consultation regarding abnormal EKG. He apparently has Olmos's esophagus and gets frequent endoscopies. In this process, he was told to have an abnormal EKG and hence asked to see cardiology. Patient himself does not have any known cardiac issues like coronary artery disease or myocardial infarction or cardiomyopathy. He is fairly active without limitations. No clear cardiac symptoms. [facility] Medical History Long QT interval Left anterior fascicular block Anemia Mixed anxiety depressive disorder Traumatic rupture of quadriceps tendon Dislocation of left shoulder joint Depression, major, recurrent, in remission Obesity (BMI 30.0-34.9) Olmos's esophagus determined by biopsy Essential hypertension Dyslipidemia Knee joint cyst Surgical History History of surgery History of surgery History of excision of pilonidal cyst History of removal of cyst History of colonoscopy Family History Father No problems noted. Mother No problems noted. Paternal Grandmother Diabetes mellitus Sister No problems noted. Sister No problems noted. Son No problems noted. Daughter No problems noted. Social History Housing: House Alcohol intake: current Alcohol intake frequency: a few times a month Alcohol type: beer and wine Patient Tobacco Use Status: Never used Tobacco e-Cigarette/Vaping Use: Never Used Current occupational status: retired Cognitive needs: No Hearing needs: No Vision needs: Yes Review of Systems Const Denies weakness ENT Denies dizziness Card Denies chest pain, Denies chest pain with activity, Denies syncope, Denies rapid heart rate, Denies pedal edema, Denies edema, Denies leg edema, Denies lightheadedness, Denies palpitations, Denies dyspnea, Denies dyspnea on exertion and Denies orthopnea Resp Denies cough, Denies dyspnea and Denies dyspnea on exertion GI Denies hematochezia and Denies change in stool character Musc Denies abnormal gait, Denies muscle cramps, Denies muscle weakness, Denies numbness, Denies radiating pain into limb and Denies tingling Neuro Denies abnormal gait, Denies dizziness, Denies syncope, Denies numbness, Denies tingling and Denies weakness Endo Denies palpitations Physical Exam Vital Signs: Last Vital Signs Pulse 91 05/18/23 13:45 BP 104/74 05/18/23 13:45 BMI result Body Mass Index 31.2 Const General: comfortable and no acute distress Orientation/consciousness: patient oriented x3 HEENT Other: Unremarkable Head: Yes normal to inspection Neck Neck: Yes normal visual inspection Chest Chest palpation & inspection: normal inspection of the chest Resp Auscultation: clear to auscultation bilaterally Cardio Palpation: normal PMI Heart sounds: S1 normal heart sound present, S2 normal heart sound present, no gallops, no murmurs and no rubs GI Palpation (GI): Soft to palpation Back/Spine/Pelvis Other: unremarkable Skin General skin exam: no rashes or lesions noted Neuro General: patient oriented x3 Extrem General: Yes normal to inspection Psych Mental Status: mental status grossly normal Assessment & Plan Assessment & Plan (1) Ascending aortic aneurysm: Code(s): I71.21 - Aneurysm of the ascending aorta, without rupture Qualifiers: Presence of rupture: without rupture Qualified Code(s): I71.21 - Aneurysm of the ascending aorta, without rupture (2) Left anterior fascicular block: Code(s): I44.4 - Left anterior fascicular block Plan EKG with leftward axis but no definitive conduction system disease. Echocardiogram with LVEF of 55-60%. Ascending aortic size 4.5 cm. Mild aortic regurgitation. In the exercise stress test, he was able to 7.7 Mets on Mitchel protocol with some shortness of breath but no EKG evidence of ischemia. Pathophysiology of aortic aneurysm discussed. To investigate this further we can do chest CTA and use coronary protocol. Will also screen for abdominal aortic aneurysm. Importance of blood pressure management discussed. Today's blood pressure seems stable. No changes for now. Follow-up in 6 months. Orders: Orders CT Cardiac Coronary Angio Today I25.10 - Atherosclerotic heart disease of yocha dehe coronary artery without angina pectoris, I71.21 - Aneurysm of the ascending aorta, without rupture US abdominal aortic aneurysm Today I71.40 - Abdominal aortic aneurysm, without rupture, unspecified Coding Level of Care Code Est Pt Level 4 (25277) Diagnoses Aneurysm of ascending aorta without rupture I71.21 Presence of rupture: without rupture Left anterior fascicular block I44.4
== END 2023-05-18 14:09 | disposition home or self-care (01) ==
PROVIDERS: PCP Internal Medicine; Visit Provider Internal Medicine
DX: I71.21 Aneurysm of the ascending aorta, without rupture (principal); I44.4 Left anterior fascicular block
CPT/HCPCS: 99214

== ENCOUNTER → 2023-05-18 13:36 | Outpatient (BNVA) | payer MEDICARE, OTHER, SELFPAY | PROVIDERS: PCP Internal Medicine; Visit Provider Internal Medicine | DX: I71.21 Aneurysm of the ascending aorta, without rupture (principal); I44.4 Left anterior fascicular block | CPT/HCPCS: 99212 ==

== ENCOUNTER 2023-06-24 06:50 | Day surgery (SDC) | payer MEDICARE, OTHER, SELFPAY ==
[2023-06-22 13:13] VITALS: BMI 31.2
--- NOTE | 2023-06-23 12:28 | MHC.SHP ---
Pre-Procedural Eval Section A Date of Service: 06/23/23 The patient is an INPATIENT: No Changes since office visit: No Cold of Flu in the past 2 weeks, No New Medical Problems, No Changes in Medication and No Patient answered all questions The History & Physical has been completed within 30 days and I have reviewed it.: Yes Section B Chief Complaint: Sebaceous cyst Allergies: Allergies Allergy/AdvReac Type Severity Reaction Status Date / Time amlodipine [AMLODIPINE] Allergy Unknown AGGRESSION, Verified 05/18/23 13:47 increase rage amitriptyline [AMITRIPTYLINE] AdvReac Unknown AGGRESSION Verified 05/18/23 13:47 Plan I have reviewed the history and physical and performed a pertinent physical examination on my patient. No changes have occurred unless specified. Time Spent With Patient Time: Total time managing care of this patient today ____ minutes.
[2023-06-24] VITALS (7 sets, daily range): BP systolic 100–144; BP diastolic 65–97; PULSE 64–80; RESP 16; TEMP 36.2–36.6; O2SAT 95–99; BMI 31.9
--- OUTSIDE RECORDS SUMMARY | 2023-06-24 06:53 | XMS_ITS | Patient Health Record ---
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 Name Role Phone Wendy GARZA, Martha Primary Care Provider Asaf Sanchez [phone] ALLERGIES Allergen (clinical drug ingredient) Drug/Non Drug Allergy documented on EMR Reaction Allergy Type Onset Date Status amlodipine Amlodipine Besylate headaches/elevat ed blood pressure Drug Allergy Active REASON FOR REFERRAL No Information MEDICATIONS Medication SIG (Take, Route, Frequency, Duration) Notes Start Date End Date Status Lansoprazole 30 MG 1 capsule Orally Twi ce a day for 30 day(s) 04/12/2023 Active Cholestyramine 4 GM/DOSE 1 scoop in an 8 ounce glass of water or orange juice Orally Twice a day for 90 days 05/12/2023 Active Lansoprazole 30 MG TAKE 1 CAPSULE BY MOUTH TWICE A DAY for 90 Active Magnesium Active Zinc Active Centrum Silver Activ e Cholestyramine 4 GM/DOSE 1/2 to 1 scoop mixed in a glass of water or oange juice Orally Once or twice a day for diarrhea for 90 days 09/12/2022 Active Calcium Active Simvastatin Active hydroCHLOROthiazide Unknown Latanoprost Active Cholestyramine 4 GM/DOSE 1 scoop in 8 ou nces of water or orange juice Orally Twice a day for 90 days 01/19/2023 Active Klor-Con 20 MEQ as directed Orally Once a day Active traZODone HCl 50 MG TK 1 T PO HS PRN Ora l for 30 Active Losartan Potassium 25 MG TAKE 1 TABLET B Y MOUTH EVERY DAY Oral for 30 Active buPROPion HCl ER (XL) 300 MG TAKE 1 TABL ET BY MOUTH EVERY DAY IN THE MORNING Oral twice a week Active IMMUNIZATIONS Vaccine Route Administration Date Status Comme nts Influenza Unknown 04/25/2019 Refused Influenza Unknown 06/09/2022 Refused SOCIAL HISTORY Sex Assigned At : Social History Observation Description Sex Assigned At Unknown PROBLEMS Problem Type ICD Code Onset Dates Problem Status W/U Status Risk SNOMED Code Notes Problem Gastroesophageal reflux disease, esophagitis presence not specified (K21.9) Active confirmed 728410547 Problem Diarrhea (R19.7) Active confirmed 37251 008 Problem Irritable bowel syndrome with diarrhea (K58.0) Active confirmed 431234946 Problem Weight loss (R63.4) Active confirmed 6418640 Problem Encounter for screening for malignant neoplasm of colon (Z12.11) Active confirmed 011428079 Problem Encounter for screening for malignant neoplasm of rectum (Z12.12) Active confirmed Screening for malignant neoplasm of rectum (621153924) Problem Abdominal pain, epigastric (R10.13) Active confirmed Epigastr ic pain (51801648) Problem 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) Active confirmed 6266194879234184 Problem Hiatal hernia (K44.9) Active confirmed 64869046 Problem Diarrhea, unspecified type (R19.7) Active confirmed 47517859 Problem 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) Active confirmed [id number] Encounters Encounter Location Date Provider Diagnosis [facility] [address] [place] [phone] 12/08/2022 Asaf Rosales Gastroesophageal ref lux disease, esophagitis presence not specified K21.9 ; Olmos's esophagus with high grade dysplasia K22.711 and Irritable bowel syndrome with diarrhea K58.0 [facility] [address] [place] [phone] 09/11/2022 Asaf Rosales [facility] [address] [place] [phone] 01/18/2023 Asaf Rosales [facility] [address] [place] [phone] 04/12/2023 Asaf Rosales [facility] [address] [place] [phone] 05/10/2023 Asaf Rosales ASSESSMENTS Encounter Date Diagnosis Assessment Notes Treatment Notes Treatment Clinical Notes 12/08/2022 Olmos's esophagus with high grade dysplasia (ICD-10 - K22.711) Check with Dr. William at [facility] to see if he wants to do another endoscopy in 02/2023 or 08/2023. 12/08/2022 Gastroesophageal reflux disease, esophagitis presence not specified (ICD-10 - K21.9) 12/08/2022 Irritable bowel syndrome with diarrhea (ICD-10 - K58.0) Continue the Cholestyramine to prevent the diarrhea PLAN OF TREATMENT Future Test Test Name Order Date UPPER GI ENDOSCOPY 03/27/2016 UPPER GI ENDOSCOPY 03/30/2017 UPPER GI ENDOSCOPY 03/22/2018 UPPER GI ENDOSCOPY 04/25/2019 UPPER GI ENDOSCOPY 05/21/2020 Next Appt Details Provider Name:Asaf Rosales , 12/09/2023 09:00:00 AM, [address] [facility], [address], [place], [address], Insurance Providers Payer Name Payer Address Payer Phone Subscriber Number Group Number Insured Name Patient Relationship to Insured Coverage Start Date Coverage End Date MEDICARE OF [place] [address] [place] [address] [phone] [id number] ARJUN HIGH Self - patient is the insured [facility] [address] [place] [address] [id number] ARJUN HIGH Self - patient is the insured MEDICAL (GENERAL) HISTORY Medical History History ICD Code HTN OBESITY HYPERCHOLESTEROLEMIA GERD--barium swallow in 2000 describes r eflux, but no other abnormalities GLAUCOMA-SEES Dr. 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 periods of apnea----had a negative sleep study at home in approx 2013 Denies ID,DM,CVA,Lung disease,renal dise ase Colonoscopy [place] [address] Aburto was normal, although random biopsies described some changes of increased inflammatory cells and architectural distortion, consistent with a possible quiescent colitis GERD---Upper endoscopy in [facility] of 2015 revealed a long segment of Olmos's esophagus and a moderate-sized hiatal hernia--some of the biopsies revealed low-grade dysplasia, but there was no gross evidence of esophagitis nor any lesions; F/U EGD in 12/2015 with only 1 area of low grade dysplasia at 34cm; EGD in 07/2016--moderate HH, 1 area of low-grade dysplasia and indefinite dysplasia--no esophagitis; EGD in 07/2017 revealed 2 small areas of low grade dysplasia and no esophagitis; EGD in 07/2018 with 2 areas of low grade dysplaia--no esophagitis; similar finidings in 07/2019, including WATS specimens Colonoscopy in September of 2015 revealed only a hyperplastic polyp and biopsies with some nonspecific inflammation--there was no gross evidence of any inflammatory bowel disease-- biopsies were not consistent with a collagenous nor lymphocytic colitis-- High-grade dysplasia found w ithin the long segment of Olmos's esophagus in July of 2020. He has had 2 radioablation procedures via the Barrx Balloon catheter system at [facility] with Dr. William in September and January of 2021. Endoscopy report from January he states that he still had a long segment of Olmos's mucosa noted. A small esophageal mucosal nodule was removed during the September endoscopy and this was benign tissue. He underwent two more ablati on procedures in July of 2021 and October of [address] William at [facility]. The endoscopy in October of 2021 revealed a 1 cm long segment of Olmos's mucosa just above the gastroesophageal junction and then multiple islands of Olmos's mucosa extending to 25 cm. This was much improved as compared to the long circumferential segment of Olmos's mucosa that had been there originally. He had another ablation and upper endoscopy at [facility] in 01/2022 and 08/2022 Surgical History Surgery Date(Month/Year) REATTACHED BICEPS MUSCLE 1991--RIGHT CYST REMOVED FROM BACK AND BACK OF HEAD Bilateral quadriceps tendon rupture with repair-Dr. Dubose
[2023-06-24] MEDS: Lactated Ringers 1,000 ML 100 ML IVCONT (08:03)
--- NOTE | 2023-06-24 09:55 | HO.ANESPROP2 ---
Documented by User: Chiara Duran NP 06/23/23 08:43 HPI - Anesthesia Eval Consult details Narrative: 67yo M for Right Wide Local Excision Sebaceous Cyst Right Mid Back Cardiac optimized Recent w/u for abnormal EKG prior to endo procedures at [facility]. [facility] Active Problems Active Problems: All Active Problems (Updated 05/18/23 @ 15:25 by Alan Niño MD) Ascending aortic aneurysm (Acute) Sebaceous cyst (Acute) Long QT interval (Acute) Left anterior fascicular block (Acute) Anemia (Acute) Mixed anxiety depressive disorder (Acute) Obesity (BMI 30.0-34.9) (Acute) Olmos's esophagus determined by biopsy (Acute) Essential hypertension (Acute) Dyslipidemia (Acute) Past Medical History Medical History (Updated 05/18/23 @ 15:25 by Alan Niño MD) Long QT interval Left anterior fascicular block Anemia Mixed anxiety depressive disorder Traumatic rupture of quadriceps tendon Dislocation of left shoulder joint Depression, major, recurrent, in remission Obesity (BMI 30.0-34.9) Olmos's esophagus determined by biopsy Essential hypertension Dyslipidemia Knee joint cyst Family History Family History Father No problems noted. Mother No problems noted. Paternal Grandmother Diabetes mellitus Sister No problems noted. Sister No problems noted. Son No problems noted. Daughter No problems noted. Surgical History Surgical History (Updated 06/24/23 @ 07:01 by Adele Kwon) H/O endoscopy H/O neck surgery History of surgery History of surgery History of excision of pilonidal cyst History of removal of cyst History of colonoscopy Social History Social History Housing: House Alcohol intake: current Alcohol intake frequency: holidays/special occasions only Alcohol type: beer and wine Patient Tobacco Use Status: Never used Tobacco e-Cigarette/Vaping Use: Never Used Use of substances other than those prescribed or required for medical reasons: No Advance Directives: No Advance Directives Information Provided: Yes Current occupational status: retired Cognitive needs: No Hearing needs: No Vision needs: Yes Meds Allergies Allergy/AdvReac Type Severity Reaction Status Date / Time amlodipine [AMLODIPINE] Allergy Unknown AGGRESSION, Verified 06/24/23 07:06 increase rage amitriptyline [AMITRIPTYLINE] AdvReac Unknown AGGRESSION Verified 06/24/23 07:06 Home Medications Medication Instructions Recorded Confirmed Last Taken Type latanoprost 0.005 % eye drops 1 drp ophthalmic (eye) DAILY 08/20/20 06/24/23 Unknown History cholestyramine (with sugar) 4 gram 4 g PO BID 10/08/22 06/24/23 Unknown History oral powder trazodone 50 mg tablet 50 mg PO BEDTIME PRN Pain 12/22/22 06/24/23 Unknown History magnesium 500 mg PO DAILY 06/24/23 06/24/23 Unknown History Exam Height,Weight and Vital Signs: Height 6 ft Weight 104.326 kg Pertinent Lab Results Pertinent Lab Results: Laboratory Tests 08/31/22 04/12/23 09:04 08:24 WBC 6.9 Hgb 13.7 L Hct 41.5 L Plt Count 259 Sodium 140 Potassium 3.8 Chloride 104 Carbon Dioxide 26 BUN 12 Creatinine 0.93 Narrative Narrative: EKG with leftward axis but no definitive conduction system disease. Echocardiogram with LVEF of 55-60%. Ascending aortic size 4.5 cm. Mild aortic regurgitation. In the exercise stress test, he was able to 7.7 Mets on Mitchel protocol with some shortness of breath but no EKG evidence of ischemia. Assessment and Plan Assessment Anesthesia Assessment: Chart Reviewed Documented by User: Carolina Fofana DO 06/24/23 10:03 [facility] Past Medical History Medical History (Updated 05/18/23 @ 15:25 by Alan Niño MD) Long QT interval Left anterior fascicular block Anemia Mixed anxiety depressive disorder Traumatic rupture of quadriceps tendon Dislocation of left shoulder joint Depression, major, recurrent, in remission Obesity (BMI 30.0-34.9) Olmos's esophagus determined by biopsy Essential hypertension Dyslipidemia Knee joint cyst Family History Family History Father No problems noted. Mother No problems noted. Paternal Grandmother Diabetes mellitus Sister No problems noted. Sister No problems noted. Son No problems noted. Daughter No problems noted. Family history of problems with anesthesia: No Surgical History Surgical History (Updated 06/24/23 @ 07:01 by Adele Kwon) H/O endoscopy H/O neck surgery History of surgery History of surgery History of excision of pilonidal cyst History of removal of cyst History of colonoscopy History of Problems with Anesthesia: No Social History Social History Housing: House Alcohol intake: current Alcohol intake frequency: holidays/special occasions only Alcohol type: beer and wine Patient Tobacco Use Status: Never used Tobacco e-Cigarette/Vaping Use: Never Used Use of substances other than those prescribed or required for medical reasons: No Advance Directives: No Advance Directives Information Provided: Yes Current occupational status: retired Cognitive needs: No Hearing needs: No Vision needs: Yes Meds Allergies Allergy/AdvReac Type Severity Reaction Status Date / Time amlodipine [AMLODIPINE] Allergy Unknown AGGRESSION, Verified 06/24/23 07:06 increase rage amitriptyline [AMITRIPTYLINE] AdvReac Unknown AGGRESSION Verified 06/24/23 07:06 Home Medications Medication Instructions Recorded Confirmed Last Taken Type latanoprost 0.005 % eye drops 1 drp ophthalmic (eye) DAILY 08/20/20 06/24/23 Unknown History cholestyramine (with sugar) 4 gram 4 g PO BID 10/08/22 06/24/23 Unknown History oral powder trazodone 50 mg tablet 50 mg PO BEDTIME PRN Pain 12/22/22 06/24/23 Unknown History magnesium 500 mg PO DAILY 06/24/23 06/24/23 Unknown History Exam Exam Date and Time: June 24, 2023 0955 Height,Weight and Vital Signs: Height 6 ft Weight 104.326 kg Height 6 ft Weight 106.866 kg Vital Signs Temperature 97.7 F 06/24/23 07:32 Pulse Rate 75 06/24/23 07:32 Respiratory Rate 16 06/24/23 07:32 Blood Pressure 144/88 H 06/24/23 07:32 Pulse Oximetry 99 06/24/23 07:32 Oxygen Delivery Method Room Air 06/24/23 07:32 Temperature 97.7 F 06/24/23 07:32 Pulse Rate 75 12/07/23 07:32 Respiratory Rate 16 06/24/23 07:32 Blood Pressure 144/88 H 06/24/23 07:32 Pulse Oximetry 99 06/24/23 07:32 Oxygen Delivery Method Room Air 06/24/23 07:32 Airway Mallampati Class: II TM Dist: >3cm Neck ROM: Full Loose/Missing/Broken Teeth: No Heart: S1S2 Lungs: CTAB Assessment and Plan Assessment Anesthesia Assessment: Anesthesia Plan Discussed and Chart Reviewed Final Anesthetic Review Family History of Problems with Anesthesia: No History of Problems with Anesthesia: No NPO: Yes ASA Class: II Final Preanesthetic Review: No Changes in Pt Med Stat, Meds/Allgs Chart Reviewed, Consent Obtained/Reviewed and Anes Risks/Benef Reviewed Patient Risk: Low Procedure Risk: Low Anesthetic Plan Anesthetic Plan: MAC: and Agree w/ Assess. and Plan Disposition: Standard PACU
--- NOTE | 2023-06-24 10:49 | P.OP_ITS ---
Operative Note Operative Note Date of Service: 06/24/23 Narrative: Preoperative diagnosis: [] Recurrent right mid back sebaceous cyst Postop diagnosis: [] Same Procedure [] wide local excision recurrent right mid back sebaceous cyst Surgeon: [] John Business Enterprise Officer: [] Type of Anesthesia: [] Mass Indication for surgery: [] Specimen measured approximately 5 x 3 cm consistent with a recurrent right mid back sebaceous cyst Procedure; patient brought to the operating room, placed on operative table in supine position, after adequate level of MAC anesthesia was induced, patient was placed in left lateral decubitus position. Midback areas prepped and draped in usual sterile fashion. Using a transverse bi- elliptical incision encompassing the mass in question along with the prior scar, this carried down through skin, subcutaneous tissue, and undermined using Bovie. Specimen sent to pathology. Wound was irrigated, secured hemostasis, and closed using interrupted inverted dermal 3-0 Vicryl sutures followed by Steri-Strips and sterile dressings. Wound was infiltrated 0.5% Marcaine/1% lidocaine at the beginning and end of the case. Patient tolerated procedure well and emerged anesthesia stable condition. EBL minimal
== END 2023-06-24 12:16 | disposition home or self-care (01) ==
PROVIDERS: PCP Internal Medicine; Visit Provider Surgery
PROC: (CPT 11406; principal; 2023-06-24 09:10)
DX: L72.3 Sebaceous cyst (principal); I10 Essential (primary) hypertension; D64.9 Anemia, unspecified; E78.5 Hyperlipidemia, unspecified; I44.4 Left anterior fascicular block; I45.81 Long QT syndrome; F41.8 Other specified anxiety disorders; E66.9 Obesity, unspecified; Z68.31 Body mass index [BMI] 31.0-31.9, adult; Z88.8 Allergy status to other drugs, medicaments and biological substances; Z98.890 Other specified postprocedural states; Z79.899 Other long term (current) drug therapy
CPT/HCPCS: 11406; 88304; J0690; J2250; J2704; J2795; J3010

== ENCOUNTER → 2023-06-24 06:50 | Outpatient (BNV) | payer MEDICARE, OTHER, SELFPAY | PROVIDERS: PCP Internal Medicine; Visit Provider Surgery | DX: L72.0 Epidermal cyst (principal) | CPT/HCPCS: 11406 ==

== ENCOUNTER 2023-07-02 09:20 | Outpatient (REF) | payer MEDICARE, OTHER, SELFPAY ==
--- NOTE | ~2023-07-02 | US_ITS ---
EXAMINATION: US RETROPERITONEAL LIMITED (AORTA) CLINICAL INFORMATION: Abdominal aortic aneurysm without rupture. COMPARISON: CT abdomen and pelvis 10/10/2015 could not be retrieved from the archive. TECHNIQUE: Aburto-scale, color Doppler and spectral Doppler evaluation of the abdominal aorta. Technically limited study secondary to bowel gas. FINDINGS: The measurements of the aorta in maximum AP and transverse dimensions respectively are as follows: Proximal: 3.0 x 3.0 cm. Mid: 2.4 x 2.4 cm. Distal: 2.2 x 2.3 cm. PSV: 56 cm/s. The measurements of the common iliac arteries in maximum AP and TRV dimensions are as follows: Right Common Iliac Artery: 1.3 x 1.2 cm. Left Common Iliac Artery: 2.0 x 1.9 cm. US/US abdominal aortic aneurysm IMPRESSION: Negative for abdominal aortic aneurysm. 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
== END 2023-07-02 09:21 | disposition home or self-care (01) ==
LOC: HO.US 09:20
PROVIDERS: PCP Internal Medicine; Visit Provider Internal Medicine
DX: I71.40 Abdominal aortic aneurysm, without rupture, unspecified (principal)
CPT/HCPCS: 76706

== ENCOUNTER 2023-07-06 12:49 | Outpatient (AMB) | payer MEDICARE, OTHER, SELFPAY ==
--- NOTE | 2023-07-06 12:55 | MHC.OFFVIS ---
Intake Vital Signs 07/06/23 12:56 Weight 234 lb BP 159/84 H Blood Pressure Location Rt brachial Position Sitting Pulse 66 Intake Visit Reasons: S/p exc shyay cyst RT mid back Intake Note: Patient here s/p exc of sebaceous cyst on Rt mid back. Reports incision healing well. Denies bleeding or discomfort. Patient c/o: itch. Dip Filler Required: No Accompanied by: Self / Same As Patient Allergies amlodipine [AMLODIPINE] Allergy (Unknown, Verified 07/06/23 12:56) AGGRESSION, increase rage amitriptyline [AMITRIPTYLINE] Adverse Reaction (Unknown, Verified 07/06/23 12:56) AGGRESSION HPI HPI Comments History of Present Illness Details Patient presents for follow-up. He has no wound issues or complaints. Pathology is benign [facility] Medical History Long QT interval Left anterior fascicular block Anemia Mixed anxiety depressive disorder Traumatic rupture of quadriceps tendon Dislocation of left shoulder joint Depression, major, recurrent, in remission Obesity (BMI 30.0-34.9) Olmos's esophagus determined by biopsy Essential hypertension Dyslipidemia Knee joint cyst Surgical History Sebaceous cyst (06/24/23) H/O endoscopy H/O neck surgery History of surgery History of surgery History of excision of pilonidal cyst History of removal of cyst History of colonoscopy Family History Father No problems noted. Mother No problems noted. Paternal Grandmother Diabetes mellitus Sister No problems noted. Sister No problems noted. Son No problems noted. Daughter No problems noted. Social History Housing: House Alcohol intake: current Alcohol intake frequency: holidays/special occasions only Alcohol type: beer and wine Patient Tobacco Use Status: Never used Tobacco e-Cigarette/Vaping Use: Never Used Current occupational status: retired Cognitive needs: No Hearing needs: No Vision needs: Yes Physical Exam Vital Signs: Last Vital Signs Pulse 66 07/06/23 12:56 BP 159/84 H 07/06/23 12:56 Back/Spine/Pelvis Other: Wound is healing very well. Assessment & Plan Assessment & Plan (1) Sebaceous cyst: Onset Date: 06/24/23 Comment: Jeremiah Flor Code(s): L72.3 - Sebaceous cyst Plan Patient has been given local instructions including avoiding strenuous activities for next 2-3 weeks time. All questions answered. He will follow-up p.r.n.. Coding Level of Care Code Global (78166) Diagnoses Sebaceous cyst L72.3
[2023-07-06 12:56] VITALS: BP 159/84; PULSE 66
== END 2023-07-06 13:20 | disposition home or self-care (01) ==
PROVIDERS: PCP Internal Medicine; Visit Provider Surgery
DX: L72.3 Sebaceous cyst (principal)
CPT/HCPCS: 99024

== ENCOUNTER → 2023-07-06 12:49 | Outpatient (BNVA) | payer MEDICARE, OTHER, SELFPAY | PROVIDERS: PCP Internal Medicine; Visit Provider Surgery | DX: Z48.817 Encounter for surgical aftercare following surgery on the skin and subcutaneous tissue (principal); Z98.890 Other specified postprocedural states | CPT/HCPCS: 99212 ==

== ENCOUNTER 2023-07-07 07:34 | Outpatient (REF) | payer MEDICARE, OTHER, SELFPAY ==
[2023-07-07 12:09] LABS: Anion Gap 14 (12-20); Blood Urea Nitrogen 16 mg/dL (9-16); Calcium 9.6 mg/dL (8.4-10.2); Carbon Dioxide 28 mmol/L (22-29); Chloride 102 mmol/L (96-108); Estimated Glomerular Filt Rate > 60; Glucose Random 85 mg/dL (60-115); Potassium 3.6 mmol/L (3.3-5.1); Sodium 140 mmol/L (135-145)
== END 2023-07-07 07:35 | disposition home or self-care (01) ==
LOC: HO.HMGCLDS 07:34
PROVIDERS: PCP Internal Medicine; Visit Provider Internal Medicine
DX: I71.21 Aneurysm of the ascending aorta, without rupture (principal)
CPT/HCPCS: 36415; 80048

== ENCOUNTER 2023-09-13 07:49 | Outpatient (REF) | payer MEDICARE, OTHER, SELFPAY ==
[2023-09-13 11:43] LABS: Basophils Percent Auto 0.4 % (0-2); Eosinophils Absolute Auto 0.3 X10*3/uL (0.0-0.4); Eosinophils Percent Auto 3.6 % (0-4); Hematocrit 42.2 % (42.0-52.0); Hemoglobin 14.2 g/dl (14.0-18.0); Imm Gran Abs Auto 0.02 X10*3/uL (0.00-0.03); Imm Gran Pct Auto 0.3 % (0.0-0.4); Lymphocytes Percent Auto 27.9 % (20-40); MANUAL DIFF FLAG NO; Mean Corpuscular HGB Conc 33.6 g/dl (31.0-36.0); Mean Platelet Volume 9.2 fL (9.4-12.4); Monocytes Absolute Auto 0.6 X10*3/uL (0.1-1.2); Monocytes Percent Auto 8.4 % (2-11); Neutrophils Absolute Auto 4.2 x10*3/uL (2.0-8.3); Neutrophils Percent Auto 59.4 % (45-73); Platelet Count 251 X10*3/uL (160-400); Red Blood Count 4.74 X10*6/uL (4.60-5.80); Red Cell Distribution Width 12.9 % (11.0-16.0)
[2023-09-13 12:22] LABS: Alanine Aminotransferase 19 U/L (0-40); Anion Gap 12 (12-20); Aspartate Amino Transferase 20 U/L (5-37); Blood Urea Nitrogen 19 mg/dL (9-16); Calcium 9.5 mg/dL (8.4-10.2); Carbon Dioxide 29 mmol/L (22-29); Chloride 102 mmol/L (96-108); Cholesterol 165 mg/dL (<200); Estimated Glomerular Filt Rate > 60; Glucose Fasting 95 mg/dL (60-99); HDL Cholesterol 47 mg/dL (>40); Iron 70 mcg/dL (45-160); LDL Cholesterol Calculated 96 mg/dL (<100); Percent Iron Saturation 23 % (15-50); Potassium 3.5 mmol/L (3.3-5.1); Sodium 139 mmol/L (135-145); Total Iron Binding Capacity 309 mcg/dL (228-428); Triglycerides 112 mg/dL (<150); Unsaturated Iron Binding 239 ug/dL
[2023-09-13 12:26] LABS: Vitamin D 25-OH Total 71.7 ng/mL (>30)
== END 2023-09-13 07:50 | disposition home or self-care (01) ==
LOC: HO.HMGCLDS 07:49
PROVIDERS: PCP Internal Medicine; Visit Provider Internal Medicine
DX: E78.5 Hyperlipidemia, unspecified (principal); I10 Essential (primary) hypertension; K22.70 Barrett's esophagus without dysplasia; F41.8 Other specified anxiety disorders; D64.9 Anemia, unspecified
CPT/HCPCS: 36415; 80048; 80061; 82306; 83540; 84450; 84460; 85025

== ENCOUNTER 2023-09-15 09:29 | Outpatient (AMB) | payer MEDICARE, OTHER, SELFPAY ==
--- NOTE | 2023-09-15 09:34 | A.OFFPC_ITS ---
Vital Signs 09/15/23 09:36 Height 6 ft Weight 234 lb BMI 31.7 BP 102/80 Blood Pressure Location Rt brachial Position Sitting Pulse 74 Pulse Source Pulse Oximeter Pulse Oximetry (%) 97 Oxygen Delivery Method Room Air Intake Visit Reasons: Follow up Intake Note: Pt is here today for his f/u labs Allergies amlodipine [AMLODIPINE] Allergy (Unknown, Verified 09/15/23 09:47) AGGRESSION, increase rage amitriptyline [AMITRIPTYLINE] Adverse Reaction (Unknown, Verified 09/15/23 09:47) AGGRESSION Medication List - Last Reconciled 09/15/23 by Martha Nguyen MD bupropion HCl 300 mg PO QAM cholestyramine (with sugar) 4 gram 4 grams PO BID hydrochlorothiazide 12.5 mg PO Q12H 90 days lansoprazole 30 mg PO BID latanoprost 0.005% 1 drp ophthalmic (eye) DAILY losartan 25 mg PO DAILY [magnesium 500 mg PO DAILY] potassium chloride ER 10 mEq PO DAILY simvastatin 20 mg PO DAILY trazodone 50 mg PO BEDTIME PRN Tobacco use date assessed: 09/15/23 Fall risk assessment: No Falls in past year Last assessed Fall Risk: 09/15/23 Dental Screening Dental Screen Date: 09/15/23 Did you have a dental visit in the last 12 months?: Yes Did you have a dental problem in the last 6 months where you did not have access to dental care?: No Was dental information given to patient?: Patient has dentist HPI Follow up HPI Details 67-year-old male with hyperlipidemia, hy pertension, with history of ascending aortic aneurysm, and history of anemia, mixed anxiety depressive disorder, Olmos's esophagus, here today for follow-up on his blood pressure in cholesterol . Has been compliant with taking his medications, blood pressure stable well controlled on present treatment. Recent fasting labs showed lipids, CBC, electrolytes renal function, fasting glucose were all within normal limit. Has been feeling well with no other complaints at present time. [facility] Medical History (Updated 09/15/23 @ 23:42 by Martha Nguyen MD) History of anemia Long QT interval Left anterior fascicular block Mixed anxiety depressive disorder Traumatic rupture of quadriceps tendon Dislocation of left shoulder joint Depression, major, recurrent, in remission Obesity (BMI 30.0-34.9) Olmos's esophagus determined by biopsy Essential hypertension Dyslipidemia Knee joint cyst Surgical History (Updated 09/15/23 @ 10:13 by Martha Nguyen MD) Sebaceous cyst (06/24/23) H/O endoscopy H/O neck surgery History of surgery History of surgery History of excision of pilonidal cyst History of removal of cyst History of colonoscopy Family History Father No problems noted. Mother No problems noted. Paternal Grandmother Diabetes mellitus Sister No problems noted. Sister No problems noted. Son No problems noted. Daughter No problems noted. Social History Housing: House Alcohol intake: current Alcohol intake frequency: holidays/special occasions only Alcohol type: beer and wine Patient Tobacco Use Status: Never used Tobacco e-Cigarette/Vaping Use: Never Used Current occupational status: retired Cognitive needs: No Hearing needs: No Vision needs: Yes Questionnaire PHQ-9 Over the last 2 weeks, how often have you been bothered by any of the following problems? 1. Little interest or pleasure in doing things: not at all 2. Feeling down, depressed, or hopeless: not at all 3. Trouble falling or staying asleep, or sleeping too much: several days 4. Feeling tired or having little energy: not at all 5. Poor appetite or overeating: not at all 6. Feeling bad about yourself - or that you are a failure or have let yourself or your family down: not at all 7. Trouble concentrating on things, such as reading the newspaper or watching television: not at all 8. Moving or speaking so slowly that other people could have noticed. Or the opposite - being so fidgety or restless that you have been moving around a lot more than usual: not at all 9. Thoughts that you would be better off or of hurting yourself in some way: not at all Total score: 1 Depression Screening Interpretation: Negative (Stable and controlled on present treatment) Depression Screening Done: Yes Source: Developed by Drs. Asaf Thomas, Holly Henao, Maury Jennings and colleagues, with an educational tiffanie from [employer]. Thrive Questionnaire Date Thrive assessed: 09/15/23 I am a: Patient What is your living situation today?: I have a steady place to live Within the past 12 months, did the food you bought not last and you didn't have the money to get more?: Never true Within the past 12 months, did you worry whether your food would run out before you got money to buy more?: Never true Do you have trouble paying for medicines?: No Do you have trouble getting transportation to medical appointments?: No Do you have trouble paying your heating and electricity bill?: No Do you have trouble taking care of your child, family member or friend?: No Do you have trouble with day-to-day activities such as bathing, preparing meals, shopping, managing finances, etc.?: No Are you currently unemployed and looking for a job?: No Are you interested in more education?: Yes THRIVE Score: 0 AUDIT C Alcohol Use Questionnaire (AUDIT-C) 1. How often do you have a drink containing alcohol?: Monthly or less 2. How many drinks containing alcohol do you have on a typical day when you are drinking?: 1 or 2 3. How often do you have six or more drinks on one occasion?: Never Total Score: 1 EDD-7 AMB Questionnaire EDD-7 Date EDD - 7 assessed: 09/15/23 Feeling nervous, anxious, or on edge: 1 = Several days Not being able to stop or control worryin = Several days Worrying too much about different things: 1 = Several days Trouble relaxin = Several days Being so restless that it is hard to sit still: 0 = Not at all Becoming easily annoyed or irritable: 1 = Several days Feeling afraid as if something awful might happen: 0 = Not at all Total EDD-7 score (0-4 normal; 5-9 mild; 10-14 moderate; 15-21 severe): 5 Source: Developed by Drs. Asaf Thomas, Holly Henao, Maury Jennings and colleagues, with an educational tiffanie from [employer]. EDD-7 Assessment Billing EDD-7 Assessment Tool: EDD-7 Assessment 70822 Review of Systems Const Denies weakness ENT Denies dizziness Card Denies chest pain, Denies chest pain with activity, Denies syncope, Denies rapid heart rate, Denies pedal edema, Denies edema, Denies leg edema, Denies lightheadedness, Denies palpitations, Denies dyspnea, Denies dyspnea on exertion and Denies orthopnea Resp Denies cough, Denies dyspnea and Denies dyspnea on exertion GI Denies hematochezia and Denies change in stool character Reports no additional complaints Musc Denies abnormal gait, Denies muscle cramps, Denies muscle weakness, Denies numbness, Denies radiating pain into limb and Denies tingling Neuro Denies abnormal gait, Denies dizziness, Denies syncope, Denies numbness, Denies tingling and Denies weakness Psych Reports no additional complaints Endo Denies palpitations Physical exam (Primary Care) Vital Signs: Last Vital Signs Pulse 74 09/15/23 09:36 BP 102/80 09/15/23 09:36 Pulse Ox 97 09/15/23 09:36 Oxygen Delivery Method Room Air 09/15/23 09:36 BMI result Body Mass Index 31.7 BMI Assessment/Plan discussion: High BMI High, discussed plan: lifestyle, weight reduction, dietary and physical activity Tobacco/Smoking Status: Tobacco use Status Tobacco use date assessed 09/15/23 09/15/23 09:42 Patient Tobacco Use Status Never used Tobacco 09/15/23 09:36 e-Cigarette/Vaping Use Never Used 09/15/23 09:36 PHQ-9: PHQ-9 Score PHQ-9: Total score 7 09/15/23 09:46 Depression Screening Interpretation: Negative (Stable and controlled on present treatment) Thrive Assessment: Date of Thrive Assessment Date Thrive assessed 09/15/23 09/15/23 09:42 Const Other: Alert oriented x3 no acute distress noted ambulatory normal gait HENMT Ears: hearing grossly normal bilaterally, TM's normal bilaterally and EAC's normal General nose exam: Normal external nose present and No nasal discharge present Face and sinus: Yes face symmetric Mouth: Normal oral and palatal mucosa present Eyes General: appearance normal, both eyes and all related structures Neck Neck: Yes full ROM, Yes no lymphadenopathy and Yes supple Chest Chest palpation & inspection: normal inspection of the chest Resp Auscultation: clear to auscultation bilaterally Cardio Other: S1-S2 present regular rate and rhythm GI Palpation (GI): Soft to palpation and nontender Back/Spine/Pelvis Back: No back tenderness Extrem General: Yes full ROM, Yes no joint enlargement, Yes no pedal edema and Yes normal gait Psych Appearance: grossly normal Mental Status: mental status grossly normal Speech and movement: Normal speech and movement present Affect: normal affect Attitude: cooperative Thought process: Normal thought process present Thought content: Normal thought content present Results Reviewed Results Reviewed: ENTERED: 09/13/239192 [facility] DR: ORDERED: CBC Auto Diff Test Result Flag Reference WBC 7.0 4.8-10.8 X10*3/uL RBC 4.74 4.60-5.80 X10*6/uL HGB 14.2 14.0-18.0 g/dl HCT 42.2 42.0-52.0 % MCV 89.0 80.0-98.0 fL MCH 30.0 27.0-33.0 pg MCHC 33.6 31.0-36.0 g/dl RDW 12.9 11.0-16.0 % PLT 251 160-400 X10*3/uL MPV 9.2 L 9.4-12.4 fL Neut Pct Auto 59.4 45-73 % ImGran Pct Auto 0.3 0.0-0.4 % Lymp Pct Auto 27.9 20-40 % Sutter Pct Auto 8.4 2-11 % Eos Pct Auto 3.6 0-4 % Baso Pct Auto 0.4 0-2 % NRBC Pct Auto 0.0 0.0-0.2 /100WBC ANC Neut Abs # 4.2 2.0-8.3 x10*3/uL ImGran Abs Auto 0.02 0.00-0.03 X10*3/uL Lymph Abs Auto 2.0 1.2-4.9 X10*3/uL Sutter Abs Auto 0.6 0.1-1.2 X10*3/uL Eos Abs Auto 0.3 0.0-0.4 X10*3/uL Baso Abs Auto 0.0 0.0-0.2 X10*3/uL NRBC Abs Auto 0.000 0.0-0.012 X10*3/uL ENTERED: 09/13/237583 [facility] DR: ORDERED: Met Prof Fast, IRON PROF, AST, ALT, Lipid Panel, Vitamin D 25-OH Test Result Flag Reference Sodium 139 135-145 mmol/L Potassium 3.5 3.3-5.1 mmol/L CL 102 96-108 mmol/L CO2 29 22-29 mmol/L Gap 12 12-20 BUN 19 H 9-16 mg/dL Creat 0.96 0.5-1.4 mg/dL EGFR > 60 NOTE: For -[place] individuals, multiply the result by 1.210. Chronic Kidney Disease: Estimated GFR < 60 mL/min/1.73m2 Severe Kidney Disease: Estimated GFR < 15 mL/min/1.73m2 FBS 95 60-99 mg/dL CA 9.5 8.4-10.2 mg/dL Iron 70 45-160 mcg/dL TIBC 309 228-428 mcg/dL Saturation 23 15-50 % UIBC 239 ug/dL AST (GOT) 20 5-37 U/L ALT (GPT) 19 0-40 U/L Triglyceride 112 <150 mg/dL Desirable Triglyceride: less than 150 mg/dL Borderline High Triglyceride 150-199 mg/dL High Triglyceride: 200-499 mg/dL Very High Triglyceride: greater than or equal to 5OO mg/dL Cholesterol 165 <200 mg/dL Desirable Cholesterol: less than 200 mg/dL Borderline High Cholesterol: 200-239 mg/dL High Cholesterol: greater than 239 mg/dL LDL Calculated 96 <100 mg/dL Desirable LDL: less than 100 mg/dL Near Optimal/Above Optimal LDL: 110-129 mg/dL Borderline High LDL: 130-159 mg/dL High LDL: 160-189 mg/dL Very High LDL: greater than or equal to 190 mg/dL HDL 47 >40 mg/dL Desirable HDL: greater than 40 mg/dL Note: This HDL assay may give artificially low results in patients with liver disease. Vit D 25-OH Tot 71.7 >30 ng/mL Health Based Reference Values* < 20 ng/mL Deficient 20-30 ng/mL Insufficient > 30 ng/mL Sufficient Assessment and Plan Assessment & Plan (1) Essential hypertension: Code(s): I10 - Essential (primary) hypertension Plan: Blood pressure stable controlled on present treatment. Continue hydrochlorothiazide, losartan at the same dose (2) Dyslipidemia: Code(s): E78.5 - Hyperlipidemia, unspecified Plan: Reviewed recent fasting lipid profile with patient with levels within normal limits . Continue with simvastatin 20 mg daily , in addition to adherence to low-cholesterol diet and regular exercise, at least 30 minutes 3 to 4 times a week. Advised patient to make healthy food choices, eat more fruits, vegetables, whole grains, wild caught fish and low-fat dairy. Limit amount of meat and fried or fatty food products, as well as processed foods and fast foods. Follow-up scheduled with repeat fasting lipid panel in 6 months. (3) Olmos's esophagus determined by biopsy: Code(s): K22.70 - Olmos's esophagus without dysplasia Plan: Followed by GI at [place], continued on lansoprazole 30 mg 1 capsule twice a day (4) Mixed anxiety depressive disorder: Code(s): F41.8 - Other specified anxiety disorders Plan: Controlled with present treatment, continued on bupropion HCL 300 mg daily in a.m. and takes trazodone as needed for insomnia which patient states has been occurring infrequently Orders: Orders Alanine Aminotransferase 03/13/24 E78.5 - Hyperlipidemia, unspecified, F41.8 - Other specified anxiety disorders, I10 - Essential (primary) hypertension, K22.70 - Olmos's esophagus without dysplasia Basic Metabolic Panel Fasting 03/13/24 E78.5 - Hyperlipidemia, unspecified, F41.8 - Other specified anxiety disorders, I10 - Essential (primary) hypertensi on, K22.70 - Olmos's esophagus without dysplasia Aspartate Amino Transferase 03/13/24 E78.5 - Hyperlipidemia, unspecified, F41.8 - Other specified anxiety disorders, I10 - Essential (primary) hypertension, K22.70 - Olmos's esophagus without dysplasia Lipid Panel 03/13/24 E78.5 - Hyperlipidemia, unspecified, F41.8 - Other specified anxiety disorders, I10 - Essential (primary) hypertension, K22.70 - Olmos's esophagus without dysplasia Complete Blood Count Auto Diff 03/13/24 E78.5 - Hyperlipidemia, unspecified, F41.8 - Other specified anxiety disorders, I10 - Essential (primary) hypertension, K22.70 - Olmos's esophagus without dysplasia Vitamin D 25-OH Total 03/13/24 E78.5 - Hyperlipidemia, unspecified, F41.8 - Other specified anxiety disorders, I10 - Essential (primary) hypertension, K22.70 - Olmos's esophagus without dysplasia Coding Level of Care Code Est Pt Level 4 (80824) Diagnoses Essential hypertension I10 Dyslipidemia E78.5 Olmos's esophagus determined by biopsy K22.70 Mixed anxiety depressive disorder F41.8 Additional Codes EDD-7 Assessment Billing - EDD-7 Assessment Tool: EDD-7 Assessment 70459 ([id number])
[2023-09-15 09:36] VITALS: BP 102/80; PULSE 74; O2SAT 97; BMI 31.7
== END 2023-09-15 10:13 | disposition home or self-care (01) ==
PROVIDERS: PCP Internal Medicine; Visit Provider Internal Medicine
DX: I10 Essential (primary) hypertension (principal); E78.5 Hyperlipidemia, unspecified; K22.70 Barrett's esophagus without dysplasia; F41.8 Other specified anxiety disorders
CPT/HCPCS: 99214

== ENCOUNTER 2023-11-16 14:06 | Outpatient (AMB) | payer MEDICARE, OTHER, SELFPAY ==
[2023-11-16 14:10] VITALS: BP 130/82; PULSE 79; BMI 32.2
--- NOTE | 2023-11-16 14:10 | A.OFFVIS_ITS ---
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: No Accompanied by: Self / Same As Patient Allergies amlodipine [AMLODIPINE] Allergy (Unknown, Verified 09/15/23 09:47) AGGRESSION, increase rage amitriptyline [AMITRIPTYLINE] Adverse Reaction (Unknown, Verified 09/15/23 09:47) AGGRESSION Medication List - Last Reconciled 11/16/23 by Alan Niño MD bupropion HCl XL 300 mg PO QAM cholestyramine (with sugar) 4 gram 4 grams PO BID hydrochlorothiazide 12.5 mg PO Q12H 90 days lansoprazole 30 mg PO BID latanoprost 0.005% 1 drp ophthalmic (eye) DAILY losartan 25 mg PO DAILY [magnesium 500 mg PO DAILY] potassium chloride ER 10 mEq PO DAILY simvastatin 20 mg PO DAILY trazodone 50 mg PO BEDTIME PRN HPI Comments Details: Evans returns for follow-up. He was originally seen in consultation regarding abnormal EKG. He apparently has Olmos's esophagus and gets frequent endoscopies. In this process, he was told to have an abnormal EKG and hence asked to see cardiology. Patient himself does not have any known cardiac issues like coronary artery disease or myocardial infarction or cardiomyopathy. He is fairly active without limitations. No clear cardiac symptoms. During workup, he was detected to have aortic aneurysm. He recently underwent coronary CTA as well. Overall, he feels good. Absolutely no cardiac symptoms. [facility] Medical History (Updated 11/16/23 @ 14:46 by Alan Niño MD) History of anemia Long QT interval Left anterior fascicular block Mixed anxiety depressive disorder Traumatic rupture of quadriceps tendon Dislocation of left shoulder joint Depression, major, recurrent, in remission Obesity (BMI 30.0-34.9) Olmso's esophagus determined by biopsy Essential hypertension Dyslipidemia Knee joint cyst Surgical History Sebaceous cyst (06/24/23) H/O endoscopy H/O neck surgery History of surgery History of surgery History of excision of pilonidal cyst History of removal of cyst History of colonoscopy Family History Father No problems noted. Mother No problems noted. Paternal Grandmother Diabetes mellitus Sister No problems noted. Sister No problems noted. Son No problems noted. Daughter No problems noted. Social History Housing: House Alcohol intake: current Alcohol intake frequency: holidays/special occasions only Alcohol type: beer and wine Patient Tobacco Use Status: Never used Tobacco e-Cigarette/Vaping Use: Never Used Current occupational status: retired Cognitive needs: No Hearing needs: No Vision needs: Yes Review of Systems Const Denies chills, Denies fatigue, Denies fever(s), Denies frequent falls, Denies weakness, Denies weight gain and Denies weight loss ENT Denies dizziness Card Denies chest pain, Denies leg edema, Denies lightheadedness, Denies palpitations, Denies dyspnea and Denies dyspnea on exertion Resp Denies cough, Denies dyspnea and Denies dyspnea on exertion GI Denies hematochezia Musc Denies abnormal gait, Denies muscle weakness, Denies numbness, Denies radiating pain into limb and Denies tingling Neuro Denies abnormal gait, Denies dizziness, Denies frequent falls, Denies numbness, Denies tingling and Denies weakness Endo Denies fatigue and Denies palpitations Physical Exam Vital Signs: Last Vital Signs Pulse 79 11/16/23 14:10 BP 130/82 11/16/23 14:10 BMI result Body Mass Index 32.2 Const General: comfortable and no acute distress Orientation/consciousness: patient oriented x3 HEENT Other: Unremarkable Head: Yes normal to inspection Neck Neck: Yes normal visual inspection Chest Chest palpation & inspection: normal inspection of the chest Resp Auscultation: clear to auscultation bilaterally Cardio Palpation: normal PMI Heart sounds: S1 normal heart sound present, S2 normal heart sound present, no gallops, no murmurs and no rubs GI Palpation (GI): Soft to palpation Back/Spine/Pelvis Other: unremarkable Skin General skin exam: no rashes or lesions noted Neuro General: patient oriented x3 Extrem General: Yes normal to inspection Psych Mental Status: mental status grossly normal Assessment & Plan Assessment & Plan (1) Ascending aortic aneurysm: Code(s): I71.21 - Aneurysm of the ascending aorta, without rupture Category: Medical Qualifiers: Presence of rupture: without rupture Qualified Code(s): I71.21 - Aneurysm of the ascending aorta, without rupture (2) Left anterior fascicular block: Code(s): I44.4 - Left anterior fascicular block Category: Medical (3) Atherosclerotic cardiovascular disease: Code(s): I25.10 - Atherosclerotic heart disease of [place] coronary artery without angina pectoris Category: Medical Plan Cardiac studies reviewed. Echocardiogram with LVEF of 55-60%. Ascending aortic size 4.5 cm. Mild aortic regurgitation. In the exercise stress test, he was able to do 7.7 METS on Mitchel protocol with some shortness of breath, but no EKG evidence of ischemia. In the coronary CTA from 06/2023; sinotubular junction enlarged to 4.9 cm. At the sinus of Valsalva, 4.1/3.9 cm. Minimal stenosis in the proximal to mid LAD. Abdominal ultrasound negative for abdominal aortic aneurysm. 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 Findings discussed with patient. We will repeat his CTA in about 6 months from last study to look for any progressive increase in size. If indeed there is significant change, will need Cardiothoracic referral. Good blood pressure management. With regard to the iliac artery aneurysm, consider vascular referral if necessary in the future. Follow-up after repeat CTA. Orders: Orders CT angio chest aorta Today I71.21 - Aneurysm of the ascending aorta, without rupture Coding Level of Care Code Est Pt Level 4 (92489) Diagnoses Aneurysm of ascending aorta without rupture I71.21 Presence of rupture: without rupture Left anterior fascicular block I44.4 Atherosclerotic cardiovascular disease I25.10
== END 2023-11-16 14:36 | disposition home or self-care (01) ==
PROVIDERS: PCP Internal Medicine; Visit Provider Internal Medicine
DX: I71.21 Aneurysm of the ascending aorta, without rupture (principal); I44.4 Left anterior fascicular block; I25.10 Atherosclerotic heart disease of native coronary artery without angina pectoris
CPT/HCPCS: 99214

== ENCOUNTER → 2023-11-16 14:06 | Outpatient (BNVA) | payer MEDICARE, OTHER, SELFPAY | PROVIDERS: PCP Internal Medicine; Visit Provider Internal Medicine | DX: I71.21 Aneurysm of the ascending aorta, without rupture (principal); I44.4 Left anterior fascicular block; I25.10 Atherosclerotic heart disease of native coronary artery without angina pectoris | CPT/HCPCS: 99212 ==

== ENCOUNTER 2024-02-01 09:32 | Outpatient (AMB) | payer MEDICARE, OTHER, SELFPAY ==
[2024-02-01 09:37] VITALS: BP 130/80; PULSE 68; BMI 32.1
--- NOTE | 2024-02-01 09:37 | MHC.OFFVIS ---
Vital Signs 02/01/24 09:37 Height 6 ft Weight 236 lb 12.423 oz BMI 32.1 BP 130/80 Blood Pressure Location Lt brachial Position Sitting Pulse 68 Intake Visit Reasons: s/p ct w/ con at [facility] Shift Super[employer] Required: No Accompanied by: Spouse Allergies amlodipine [AMLODIPINE] Allergy (Unknown, Verified 09/15/23 09:47) AGGRESSION, increase rage amitriptyline [AMITRIPTYLINE] Adverse Reaction (Unknown, Verified 09/15/23 09:47) AGGRESSION Medication List - Last Reconciled 02/01/24 by Alan iNño MD bupropion HCl XL 300 mg PO QAM cholestyramine (with sugar) 4 gram 4 grams PO BID hydrochlorothiazide 12.5 mg PO Q12H 90 days lansoprazole 30 mg PO BID latanoprost 0.005% 1 drp ophthalmic (eye) DAILY losartan 25 mg PO DAILY [magnesium 500 mg PO DAILY] potassium chloride ER 10 mEq PO DAILY simvastatin 20 mg PO DAILY trazodone 50 mg PO BEDTIME PRN HPI Comments Details: Evans returns for follow-up. He was originally seen in consultation regarding abnormal EKG. He apparently has Olmos's esophagus and gets frequent endoscopies. In this process, he was told to have an abnormal EKG and hence asked to see cardiology. Patient himself does not have any known cardiac issues like coronary artery disease or myocardial infarction or cardiomyopathy. He is fairly active without limitations. No clear cardiac symptoms. During workup, he was detected to have aortic aneurysm. He has been followed up on chest CT scans. Overall, he feels quite good. No cardiac symptoms whatsoever. [facility] Medical History (Updated 11/16/23 @ 14:46 by Alan Niño MD) History of anemia Long QT interval Left anterior fascicular block Mixed anxiety depressive disorder Traumatic rupture of quadriceps tendon Dislocation of left shoulder joint Depression, major, recurrent, in remission Obesity (BMI 30.0-34.9) Olmos's esophagus determined by biopsy Essential hypertension Dyslipidemia Knee joint cyst Surgical History Sebaceous cyst (06/24/23) H/O endoscopy H/O neck surgery History of surgery History of surgery History of excision of pilonidal cyst History of removal of cyst History of colonoscopy Family History Father No problems noted. Mother No problems noted. Paternal Grandmother Diabetes mellitus Sister No problems noted. Sister No problems noted. Son No problems noted. Daughter No problems noted. Social History Housing: House Alcohol intake: current Alcohol intake frequency: holidays/special occasions only Alcohol type: beer and wine Patient Tobacco Use Status: Never used Tobacco e-Cigarette/Vaping Use: Never Used Current occupational status: retired Cognitive needs: No Hearing needs: No Vision needs: Yes Review of Systems Const Denies chills, Denies fatigue, Denies fever(s), Denies weight gain and Denies weight loss ENT Denies dizziness Card Denies chest pain, Denies leg edema, Denies lightheadedness, Denies palpitations, Denies dyspnea on exertion, Denies orthopnea and Denies other Resp Denies cough and Denies dyspnea on exertion GI Denies hematochezia and Denies change in stool character Musc Denies abnormal gait, Denies muscle weakness, Denies numbness, Denies radiating pain into limb and Denies tingling Neuro Denies abnormal gait, Denies dizziness, Denies numbness and Denies tingling Endo Denies fatigue and Denies palpitations Physical Exam Vital Signs: Last Vital Signs Pulse 68 02/01/24 09:37 BP 130/80 02/01/24 09:37 BMI result Body Mass Index 32.1 Const General: comfortable and no acute distress Orientation/consciousness: patient oriented x3 HEENT Other: Unremarkable Head: Yes normal to inspection Neck Neck: Yes normal visual inspection Chest Chest palpation & inspection: normal inspection of the chest Resp Auscultation: clear to auscultation bilaterally Cardio Palpation: normal PMI Heart sounds: S1 normal heart sound present, S2 normal heart sound present, no gallops, no murmurs and no rubs GI Palpation (GI): Soft to palpation Back/Spine/Pelvis Other: unremarkable Skin General skin exam: no rashes or lesions noted Neuro General: patient oriented x3 Extrem General: Yes normal to inspection Psych Mental Status: mental status grossly normal Office Procedures EKG Details: EKG with sinus rhythm at 68/Min; leftward axis and possible left anterior fascicular block; [place] [address]-[id number], Complete Assessment & Plan Assessment & Plan (1) Ascending aortic aneurysm: Code(s): I71.21 - Aneurysm of the ascending aorta, without rupture Category: Medical Qualifiers: Presence of rupture: without rupture Qualified Code(s): I71.21 - Aneurysm of the ascending aorta, without rupture (2) Left anterior fascicular block: Code(s): I44.4 - Left anterior fascicular block Category: Medical (3) Atherosclerotic cardiovascular disease: Code(s): I25.10 - Atherosclerotic heart disease of bois forte coronary artery without angina pectoris Category: Medical Plan Cardiac studies reviewed. Echocardiogram 01/2023 with LVEF of 55-60%. Ascending aortic size 4.5 cm. Mild aortic regurgitation. In the exercise stress test, he was able to do 7.7 METS on Mitchel protocol with some shortness of breath, but no EKG evidence of ischemia. In the coronary CTA from 06/2023; sinotubular junction enlarged to 4.9 cm. At the sinus of Valsalva, 4.1/3.9 cm. Minimal stenosis in the proximal to mid LAD. In the repeat chest CT scan from 11/2022-dimensions are-sinus of Valsalva 4.8/5 cm; sinus tubular junction 4.6/4.6 cm; ascending aorta 4.3/4.6 cm; mild aortic arch 3.2/3.4 cm and descending aorta 3.7/3.6 cm. Abdominal ultrasound negative for abdominal aortic aneurysm. 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 Findings discussed with patient and significant other in great detail. He is already awaiting cardiac surgery consultation from [facility] but would like to rather go to [facility] where he receives a lot of his care. Hence we will coordinate that. Otherwise, natural course, treatment options for dilated aorta discussed. With regard to the iliac artery aneurysm, may need another check with ultrasound in the future. With regard to the mild coronary disease, switch simvastatin to atorvastatin. We also discussed about family screening for aortic conditions. May need genetic referral in the future. Follow-up after [facility] cardiac surgery appointment. Medications: New atorvastatin 40 mg PO QPM 90 tabs 3RF Discontinued simvastatin Discontinued Reason: Doctor's Order 20 mg PO DAILY 90 tabs 3RF Coding Level of Care Code Est Pt Level 4 (70637) Diagnoses Aneurysm of ascending aorta without rupture I71.21 Presence of rupture: without rupture Left anterior fascicular block I44.4 Atherosclerotic cardiovascular disease I25.10 CPT Codes EKG - CPT: 82960-[id number], Complete ([id number])
== END 2024-02-01 10:26 | disposition home or self-care (01) ==
PROVIDERS: PCP Internal Medicine; Visit Provider Internal Medicine
DX: I71.21 Aneurysm of the ascending aorta, without rupture (principal); I44.4 Left anterior fascicular block; I25.10 Atherosclerotic heart disease of native coronary artery without angina pectoris
CPT/HCPCS: 93010; 99214

== ENCOUNTER → 2024-02-01 09:32 | Outpatient (BNVA) | payer MEDICARE, OTHER, SELFPAY | PROVIDERS: PCP Internal Medicine; Visit Provider Internal Medicine | DX: I71.21 Aneurysm of the ascending aorta, without rupture (principal); I44.4 Left anterior fascicular block; I25.10 Atherosclerotic heart disease of native coronary artery without angina pectoris | CPT/HCPCS: 93005; 99212 ==

== ENCOUNTER 2024-03-15 08:21 | Outpatient (REF) | payer MEDICARE, OTHER, SELFPAY ==
[2024-03-15 10:09] LABS: MANUAL DIFF FLAG NO
[2024-03-15 10:17] LABS: Basophils Absolute Auto 0.1 X10*3/uL (0.0-0.2); Basophils Percent Auto 0.7 % (0-2); Eosinophils Absolute Auto 0.4 X10*3/uL (0.0-0.4); Hematocrit 42.9 % (42.0-52.0); Hemoglobin 14.2 g/dl (14.0-18.0); Imm Gran Abs Auto 0.02 X10*3/uL (0.00-0.03); Imm Gran Pct Auto 0.3 % (0.0-0.4); Lymphocytes Percent Auto 25.9 % (20-40); Mean Corpuscular HGB Conc 33.1 g/dl (31.0-36.0); Mean Corpuscular Hemoglobin 29.6 pg (27.0-33.0); Mean Corpuscular Volume 89.6 fL (80.0-98.0); Mean Platelet Volume 9.6 fL (9.4-12.4); Monocytes Absolute Auto 0.6 X10*3/uL (0.1-1.2); Monocytes Percent Auto 7.3 % (2-11); Neutrophils Absolute Auto 4.6 x10*3/uL (2.0-8.3); Neutrophils Percent Auto 60.8 % (45-73); Platelet Count 228 X10*3/uL (160-400); Red Blood Count 4.79 X10*6/uL (4.60-5.80); Red Cell Distribution Width 12.9 % (11.0-16.0); White Blood Count 7.6 X10*3/uL (4.8-10.8)
[2024-03-15 10:47] LABS: Alanine Aminotransferase 20 U/L (0-40); Anion Gap 10 (12-20); Aspartate Amino Transferase 21 U/L (5-37); Blood Urea Nitrogen 17 mg/dL (9-16); Calcium 9.4 mg/dL (8.4-10.2); Carbon Dioxide 30 mmol/L (22-29); Chloride 104 mmol/L (96-108); Cholesterol 138 mg/dL (<200); Estimated Glomerular Filt Rate > 60; Glucose Fasting 98 mg/dL (60-99); HDL Cholesterol 40 mg/dL (>40); LDL Cholesterol Calculated 74 mg/dL (<100); Potassium 3.8 mmol/L (3.3-5.1); Sodium 140 mmol/L (135-145); Triglycerides 120 mg/dL (<150)
[2024-03-15 10:51] LABS: Vitamin D 25-OH Total 80.1 ng/mL (>30)
== END 2024-03-15 08:22 | disposition home or self-care (01) ==
LOC: HO.HMGCLDS 08:21
PROVIDERS: PCP Internal Medicine; Visit Provider Internal Medicine
DX: I10 Essential (primary) hypertension (principal); E78.5 Hyperlipidemia, unspecified; K22.70 Barrett's esophagus without dysplasia; F41.8 Other specified anxiety disorders
CPT/HCPCS: 36415; 80048; 80061; 82306; 84450; 84460; 85025

== ENCOUNTER 2024-03-21 08:56 | Outpatient (AMB) | payer MEDICARE, OTHER, SELFPAY ==
--- NOTE | 2024-03-21 09:03 | A.OFFPC_ITS ---
Vital Signs 03/21/24 09:04 Height 6 ft Weight 231 lb BMI 31.3 BP 104/80 Blood Pressure Location Rt brachial Position Sitting Pulse 68 Pulse Source Pulse Oximeter Pulse Oximetry (%) 98 Oxygen Delivery Method Room Air Intake Visit Reasons: 6 month follow up Intake Note: Pt is here today for his 6mo. f/u Allergies amlodipine [AMLODIPINE] Allergy (Unknown, Verified 03/21/24 09:31) AGGRESSION, increase rage amitriptyline [AMITRIPTYLINE] Adverse Reaction (Unknown, Verified 03/21/24 09:31) AGGRESSION atorvastatin Adverse Reaction (Verified 03/21/24 09:31) tachycardia Medication List - Last Reconciled 03/21/24 by Martha Nguyen MD bupropion HCl XL 300 mg PO QAM cholestyramine (with sugar) 4 gram 4 grams PO DAILY hydrochlorothiazide 12.5 mg PO Q12H 90 days lansoprazole 30 mg PO BID latanoprost 0.005% 1 drp ophthalmic (eye) DAILY losartan 25 mg PO DAILY [magnesium 500 mg PO DAILY] potassium chloride ER 10 mEq PO DAILY simvastatin 20 mg PO BEDTIME Tobacco use date assessed: 03/21/24 Fall risk assessment: No Falls in past year Last assessed Fall Risk: 03/21/24 Dental Screening Dental Screen Date: 03/21/24 Did you have a dental visit in the last 12 months?: Yes Did you have a dental problem in the last 6 months where you did not have access to dental care?: No Was dental information given to patient?: Patient has dentist HPI 6 month follow up HPI Details 68-year-old male with hyperlipidemia, hy pertension, with history of ascending aortic aneurysm, and history of anemia, mixed anxiety depressive disorder, Olmos's esophagus, here today for follow-up . He has been following the [employer] program for weight loss, and has lost approximately 5 lb in the last 6 weeks, and has started exercising again regularly at the gym. He has been feeling well, blood pressure stable controlled on present treatment. Patient however states that he sometimes would feel little dizzy when he gets up quickly. Latest fasting labs showed normal electrolytes, renal function, fasting glucose, lipids and vitamin-D level. [facility] Medical History (Updated 03/21/24 @ 09:51 by Martha Nguyen MD) Numbness and tingling of both feet History of anemia Long QT interval Left anterior fascicular block Mixed anxiety depressive disorder Traumatic rupture of quadriceps tendon Dislocation of left shoulder joint Depression, major, recurrent, in remission Obesity (BMI 30.0-34.9) Olmos's esophagus determined by biopsy Essential hypertension Dyslipidemia Knee joint cyst Surgical History Sebaceous cyst (06/24/23) H/O endoscopy H/O neck surgery History of surgery History of surgery History of excision of pilonidal cyst History of removal of cyst History of colonoscopy Family History Father No problems noted. Mother No problems noted. Paternal Grandmother Diabetes mellitus Sister No problems noted. Sister No problems noted. Son No problems noted. Daughter No problems noted. Social History Housing: House Alcohol intake: current Alcohol intake frequency: holidays/special occasions only Alcohol type: beer and wine Patient Tobacco Use Status: Never used Tobacco e-Cigarette/Vaping Use: Never Used Current occupational status: retired Cognitive needs: No Hearing needs: No Vision needs: Yes Questionnaire PHQ-9 Over the last 2 weeks, how often have you been bothered by any of the following problems? 1. Little interest or pleasure in doing things: not at all 2. Feeling down, depressed, or hopeless: not at all 3. Trouble falling or staying asleep, or sleeping too much: several days 4. Feeling tired or having little energy: several days 5. Poor appetite or overeating: not at all 6. Feeling bad about yourself - or that you are a failure or have let yourself or your family down: not at all 7. Trouble concentrating on things, such as reading the newspaper or watching television: not at all 8. Moving or speaking so slowly that other people could have noticed. Or the opposite - being so fidgety or restless that you have been moving around a lot more than usual: not at all 9. Thoughts that you would be better off or of hurting yourself in some way: not at all Total score: 2 Depression Screening Interpretation: Negative Depression Screening Done: Yes 93439 - PHQ-9 Billing: Yes Source: Developed by Drs. Asaf Thomas, Holly Henao, Maury Jennings and colleagues, with an educational tiffanie from [employer]. Thrive Questionnaire Date Thrive assessed: 03/21/24 I am a: Patient What is your living situation today?: I have a steady place to live Within the past 12 months, did the food you bought not last and you didn't have the money to get more?: Never true Within the past 12 months, did you worry whether your food would run out before you got money to buy more?: Never true Do you have trouble paying for medicines?: No Do you have trouble getting transportation to medical appointments?: No Do you have trouble paying your heating and electricity bill?: No Do you have trouble taking care of your child, family member or friend?: No Do you have trouble with day-to-day activities such as bathing, preparing meals, shopping, managing finances, etc.?: No Are you currently unemployed and looking for a job?: No Are you interested in more education?: No Please select the resources that you would like help with: None Currently or been in a relationship where the following occur: No concerns reported THRIVE Score: 0 AUDIT C Alcohol Use Questionnaire (AUDIT-C) 1. How often do you have a drink containing alcohol?: Monthly or less 2. How many drinks containing alcohol do you have on a typical day when you are drinking?: 1 or 2 3. How often do you have six or more drinks on one occasion?: Never Total Score: 1 EDD-7 AMB Questionnaire EDD-7 Date EDD - 7 assessed: 03/21/24 Feeling nervous, anxious, or on edge: 0 = Not at all Not being able to stop or control worryin = Not at all Worrying too much about different things: 0 = Not at all Trouble relaxin = Several days Being so restless that it is hard to sit still: 0 = Not at all Becoming easily annoyed or irritable: 0 = Not at all Feeling afraid as if something awful might happen: 0 = Not at all Total EDD-7 score (0-4 normal; 5-9 mild; 10-14 moderate; 15-21 severe): 1 Source: Developed by Holly Mcgill, Maury Jennings and colleagues, with an educational tiffanie from [employer]. EDD-7 Assessment Billing EDD-7 Assessment Tool: EDD-7 Assessment 32534 Review of Systems Const Denies chills, Denies fatigue, Denies fever(s), Denies weight gain and Denies weight loss ENT Reports no additional complaints and Reports as per HPI Card Denies chest pain, Denies leg edema, Denies lightheadedness, Denies palpitations, Denies dyspnea on exertion, Denies orthopnea and Denies other Resp Denies cough and Denies dyspnea on exertion GI Denies hematochezia and Denies change in stool character Reports no additional complaints Musc Denies abnormal gait, Denies muscle weakness, Denies numbness, Denies radiating pain into limb and Reports tingling (In both feet) Neuro Denies abnormal gait, Denies numbness and Reports tingling (In both feet) Psych Reports no additional complaints and Reports as per HPI Endo Denies fatigue and Denies palpitations Physical exam (Primary Care) Vital Signs: Last Vital Signs Pulse 68 03/21/24 09:04 BP 104/80 03/21/24 09:04 Pulse Ox 98 03/21/24 09:04 Oxygen Delivery Method Room Air 03/21/24 09:04 BMI result Body Mass Index 31.3 BMI Assessment/Plan discussion: High BMI High, discussed plan: lifestyle, weight reduction, dietary and physical activity Tobacco/Smoking Status: Tobacco use Status Tobacco use date assessed 03/21/24 03/21/24 09:14 Patient Tobacco Use Status Never used Tobacco 03/21/24 09:07 e-Cigarette/Vaping Use Never Used 03/21/24 09:07 PHQ-9: PHQ-9 Score PHQ-9: Total score 2 03/21/24 09:32 Depression Screening Interpretation: Negative Thrive Assessment: Date of Thrive Assessment Date Thrive assessed 03/21/24 03/21/24 09:14 Currently or been in a relationship where the following occur: No concerns reported Const Other: Alert oriented x3 no acute distress noted ambulatory normal gait Orientation/consciousness: patient oriented x3 HENMT Ears: hearing grossly normal bilaterally, TM's normal bilaterally and EAC's normal General nose exam: Normal external nose present and No nasal discharge present Face and sinus: Yes face symmetric Mouth: Normal oral and palatal mucosa present Eyes General: appearance normal, both eyes and all related structures Neck Neck: Yes full ROM, Yes no lymphadenopathy and Yes supple Chest Chest palpation & inspection: normal inspection of the chest Resp Auscultation: clear to auscultation bilaterally Cardio Other: S1-S2 present regular rate and rhythm GI Palpation (GI): Soft to palpation and nontender Back/Spine/Pelvis Back: No back tenderness Skin General skin exam: no rashes or lesions noted Neuro General: patient oriented x3, gait normal, tone normal and moves all extremities Sensory Exam: Graphesthesia abnormal bilaterally and Abnormal lower extremity sensory exam Extrem General: Yes full ROM, Yes no joint enlargement, Yes no pedal edema and Yes normal gait Psych Appearance: grossly normal Mental Status: mental status grossly normal Speech and movement: Normal speech and movement present Affect: normal affect Attitude: cooperative Thought process: Normal thought process present Thought content: Normal thought content present Results Reviewed Results Reviewed: Name: [facility] Age/Sex: 68/M : 1955 Unit#: [id number] Attend Dr: Martha Nguyen MD Re03/15/24 Status: DEP REF Location: [facility] Disch: SPEC : [id number] ALEJA: 03/15/24 STATUS: COMP REQ : [id number] RECD: 03/15/[address]: Martha Nguyen MD COMP: 03/15/24 ENTERED: 03/15/[address]: ORDERED: Met Prof Fast, AST, ALT, Lipid Panel, Vitamin D 25-OH Test Result Flag Reference Sodium 140 135-145 mmol/L Potassium 3.8 3.3-5.1 mmol/L CL 104 96-108 mmol/L CO2 30 H 22-29 mmol/L Gap 10 L 12-20 BUN 17 H 9-16 mg/dL Creat 0.98 0.5-1.4 mg/dL EGFR > 60 NOTE: For -Mauritian individuals, multiply the result by 1.210. Chronic Kidney Disease: Estimated GFR < 60 mL/min/1.73m2 Severe Kidney Disease: Estimated GFR < 15 mL/min/1.73m2 FBS 98 60-99 mg/dL CA 9.4 8.4-10.2 mg/dL AST (GOT) 21 5-37 U/L ALT (GPT) 20 0-40 U/L Triglyceride 120 <150 mg/dL Desirable Triglyceride: less than 150 mg/dL Borderline High Triglyceride 150-199 mg/dL High Triglyceride: 200-499 mg/dL Very High Triglyceride: greater than or equal to 5OO mg/dL Cholesterol 138 <200 mg/dL Desirable Cholesterol: less than 200 mg/dL Borderline High Cholesterol: 200-239 mg/dL High Cholesterol: greater than 239 mg/dL LDL Calculated 74 <100 mg/dL Desirable LDL: less than 100 mg/dL Near Optimal/Above Optimal LDL: 110-129 mg/dL Borderline High LDL: 130-159 mg/dL High LDL: 160-189 mg/dL Very High LDL: greater than or equal to 190 mg/dL HDL 40 L >40 mg/dL Desirable HDL: greater than 40 mg/dL Note: This HDL assay may give artificially low results in patients with liver disease. Vit D 25-OH Tot 80.1 >30 ng/mL Health Based Reference Values* < 20 ng/mL Deficient 20-30 ng/mL Insufficient > 30 ng/mL Sufficient Assessment and Plan Assessment & Plan (1) Numbness and tingling of both feet: Code(s): R20.0 - Anesthesia of skin; R20.2 - Paresthesia of skin Plan: Basic metabolic panel ordered as well as nerve conduction velocity study (2) Dyslipidemia: Code(s): E78.5 - Hyperlipidemia, unspecified Plan: Reviewed recent fasting lipid profile with patient with levels within normal limits . Continue simvastatin 20 mg at bedtime , in addition to adherence to low-cholesterol diet and regular exercise, at least 30 minutes 3 to 4 times a week. Advised patient to make healthy food choices, eat more fruits, vegetables, whole grains, wild caught fish and low-fat dairy. Limit amount of meat and fried or fatty food products, as well as processed foods and fast foods. Recheck lipids in six-month (3) Essential hypertension: Code(s): I10 - Essential (primary) hypertension Plan: Blood pressure stable controlled on present treatment. Continue with chlorothiazide 12.5 mg daily, and losartan 25 mg daily Orders: Orders Basic Metabolic Panel Fasting 04/18/24 E78.5 - Hyperlipidemia, unspecified, I10 - Essential (primary) hypertension Alanine Aminotransferase 09/16/24 E78.5 - Hyperlipidemia, unspecified, I10 - Essential (primary) hypertension, R20.0 - Anesthesia of skin, R20.2 - Paresthesia of skin Aspartate Amino Transferase 09/16/24 E78.5 - Hyperlipidemia, unspecified, I10 - Essential (primary) hypertension, R20.0 - Anesthesia of skin, R20.2 - Paresthesia of skin NE nerve conduction velocity 03/21/24 R20.0 - Anesthesia of skin, R20.2 - Paresthesia of skin Lipid Panel 09/16/24 E78.5 - Hyperlipidemia, unspecified, I10 - Essential (primary) hypertension, R20.0 - Anesthesia of skin, R20.2 - Paresthesia of skin Basic Metabolic Panel Fasting 09/16/24 E78.5 - Hyperlipidemia, unspecified, I10 - Essential (primary) hypertension, R20.0 - Anesthesia of skin, R20.2 - Paresthesia of skin Coding Level of Care Code Est Pt Level 4 (78268) Complex EM visit Add On G2211 Diagnoses Numbness and tingling of both feet R20.0; R20.2 Dyslipidemia E78.5 Essential hypertension I10 Additional Codes EDD-7 Assessment Billing - EDD-7 Assessment Tool: EDD-7 Assessment 80532 ([id number])
[2024-03-21 09:04] VITALS: BP 104/80; PULSE 68; O2SAT 98; BMI 31.3
== END 2024-03-21 13:14 | disposition home or self-care (01) ==
PROVIDERS: PCP Internal Medicine; Visit Provider Internal Medicine
DX: R20.0 Anesthesia of skin (principal); R20.2 Paresthesia of skin; E78.5 Hyperlipidemia, unspecified; I10 Essential (primary) hypertension
CPT/HCPCS: 99214; G2211

== ENCOUNTER 2024-03-28 08:49 | Outpatient (REF) | payer MEDICARE, OTHER, SELFPAY ==
--- NOTE | 2024-03-28 08:51 | EMG_ITS ---
Bilateral tibial and peroneal motor studies were performed. Bilateral sural, superficial peroneal, and median and lateral plantar sensory studies were performed. Tibial H reflexes were obtained and paraspinal muscles were tested with a needle. 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 MD ANNIE Chavira/ARELI / [id number]
== END 2024-03-28 08:50 | disposition home or self-care (01) ==
LOC: HO.NEURO 08:49
PROVIDERS: PCP Internal Medicine; Visit Provider Internal Medicine
DX: R20.0 Anesthesia of skin (principal); R20.2 Paresthesia of skin
CPT/HCPCS: 95886; 95913

== ENCOUNTER 2024-04-24 08:18 | Outpatient (REF) | payer MEDICARE, OTHER, SELFPAY ==
[2024-04-24 10:34] LABS: Anion Gap 9 (12-20); Blood Urea Nitrogen 16 mg/dL (9-16); Calcium 9.2 mg/dL (8.4-10.2); Carbon Dioxide 28 mmol/L (22-29); Chloride 109 mmol/L (96-108); Estimated Glomerular Filt Rate > 60; Glucose Fasting 99 mg/dL (60-99); Potassium 3.8 mmol/L (3.3-5.1); Sodium 142 mmol/L (135-145)
== END 2024-04-24 08:19 | disposition home or self-care (01) ==
LOC: HO.HMGCLDS 08:18
PROVIDERS: PCP Internal Medicine; Visit Provider Internal Medicine
DX: I10 Essential (primary) hypertension (principal); E78.5 Hyperlipidemia, unspecified
CPT/HCPCS: 36415; 80048

== ENCOUNTER 2024-05-31 08:23 | Outpatient (AMB) | payer MEDICARE, OTHER, SELFPAY ==
[2024-05-31 08:25] VITALS: BP 124/70; PULSE 72; BMI 30.6
--- NOTE | 2024-05-31 08:25 | A.OFFVIS_ITS ---
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 Accompanied by: Self / Same As Patient Allergies amlodipine [AMLODIPINE] Allergy (Unknown, Verified 03/21/24 09:31) AGGRESSION, increase rage amitriptyline [AMITRIPTYLINE] Adverse Reaction (Unknown, Verified 03/21/24 09:31) AGGRESSION atorvastatin Adverse Reaction (Verified 03/21/24 09:31) tachycardia Medication List - Last Reconciled 05/31/24 by Alan Niño MD bupropion HCl XL 300 mg PO QAM cholestyramine (with sugar) 4 gram 4 grams PO DAILY hydrochlorothiazide 12.5 mg PO Q12H 90 days lansoprazole 30 mg PO BID latanoprost 0.005% 1 drp ophthalmic (eye) DAILY losartan 25 mg PO DAILY [magnesium 500 mg PO DAILY] simvastatin 20 mg PO BEDTIME HPI Comments Details: Evans returns for follow-up. He was originally seen in consultation regarding abnormal EKG. He apparently has Olmos's esophagus and gets frequent endoscopies. In this process, he was told to have an abnormal EKG and hence asked to see cardiology. Patient himself does not have any known cardiac issues like coronary artery disease or myocardial infarction or cardiomyopathy. He is fairly active without limitations. No clear cardiac symptoms. During workup, he was detected to have aortic aneurysm. He has been followed up on chest CT scans. Since last seen, no new complaints. He states he feels good. [facility] Medical History (Updated 05/31/24 @ 08:46 by Alan Niño MD) Numbness and tingling of both feet History of anemia Long QT interval Left anterior fascicular block Mixed anxiety depressive disorder Traumatic rupture of quadriceps tendon Dislocation of left shoulder joint Depression, major, recurrent, in remission Obesity (BMI 30.0-34.9) Olmos's esophagus determined by biopsy Essential hypertension Dyslipidemia Knee joint cyst Surgical History Sebaceous cyst (06/24/23) H/O endoscopy H/O neck surgery History of surgery History of surgery History of excision of pilonidal cyst History of removal of cyst History of colonoscopy Family History Father No problems noted. Mother No problems noted. Paternal Grandmother Diabetes mellitus Sister No problems noted. Sister No problems noted. Son No problems noted. Daughter No problems noted. Social History Housing: House Alcohol intake: current Alcohol intake frequency: holidays/special occasions only Alcohol type: beer and wine Patient Tobacco Use Status: Never used Tobacco e-Cigarette/Vaping Use: Never Used Current occupational status: retired Cognitive needs: No Hearing needs: No Vision needs: Yes Review of Systems Const Denies chills, Denies fatigue, Denies fever(s), Denies weight gain and Denies weight loss ENT Denies dizziness Card Denies chest pain, Denies leg edema, Denies lightheadedness, Denies palpitations, Denies dyspnea on exertion, Denies orthopnea and Denies other Resp Denies cough and Denies dyspnea on exertion GI Denies hematochezia and Denies change in stool character Musc Denies abnormal gait, Denies muscle weakness, Denies numbness, Denies radiating pain into limb and Denies tingling Neuro Denies abnormal gait, Denies dizziness, Denies numbness and Denies tingling Endo Denies fatigue and Denies palpitations Physical Exam Vital Signs: Last Vital Signs Pulse 72 05/31/24 08:25 BP 124/70 05/31/24 08:25 BMI result Body Mass Index 30.6 Const General: comfortable and no acute distress Orientation/consciousness: patient oriented x3 HEENT Other: Unremarkable Head: Yes normal to inspection Neck Neck: Yes normal visual inspection Chest Chest palpation & inspection: normal inspection of the chest Resp Auscultation: clear to auscultation bilaterally Cardio Palpation: normal PMI Heart sounds: S1 normal heart sound present, S2 normal heart sound present, no gallops, no murmurs and no rubs GI Palpation (GI): Soft to palpation Back/Spine/Pelvis Other: unremarkable Skin General skin exam: no rashes or lesions noted Neuro General: patient oriented x3 Extrem General: Yes normal to inspection Psych Mental Status: mental status grossly normal Assessment & Plan Assessment & Plan (1) Ascending aortic aneurysm: Code(s): I71.21 - Aneurysm of the ascending aorta, without rupture Category: Medical Qualifiers: Presence of rupture: without rupture Qualified Code(s): I71.21 - Aneurysm of the ascending aorta, without rupture (2) Iliac artery aneurysm: Code(s): I72.3 - Aneurysm of iliac artery Category: Medical (3) Atherosclerotic cardiovascular disease: Code(s): I25.10 - Atherosclerotic heart disease of [place] coronary artery without angina pectoris Category: Medical (4) Left anterior fascicular block: Code(s): I44.4 - Left anterior fascicular block Category: Medical Plan Cardiac studies reviewed. Echocardiogram 01/2023 with LVEF of 55-60%. Ascending aortic size 4.5 cm. Mild aortic regurgitation. In the exercise stress test, he was able to do 7.7 METS on Mitchel protocol with some shortness of breath, but no EKG evidence of ischemia. In the coronary CTA from 06/2023; sinotubular junction enlarged to 4.9 cm. At the sinus of Valsalva, 4.1/3.9 cm. Minimal stenosis in the proximal to mid LAD. In the repeat chest CT scan from 11/2023-dimensions are-sinus of Valsalva 4.8/5 cm; sinus tubular junction 4.6/4.6 cm; ascending aorta 4.3/4.6 cm; mild aortic arch 3.2/3.4 cm and descending aorta 3.7/3.6 cm. Abdominal ultrasound negative for abdominal aortic aneurysm. 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 He has seen cardiac surgery at [facility] per his own preference and recommendation is to just follow-up in [address] scan. We will arrange that accordingly. We also discussed about family screening of aortic aneurysm and he understands that. Genetics discussed. In case he is positive for any of the concerning genes, threshold for surgery will be lower. He states he will let us know of any findings from [facility]etics [facility]. With regard to the iliac artery aneurysm, we will repeat another ultrasound for follow-up before next visit. With regard to mild coronary disease, no symptoms. He is not able to take atorvastatin and may just take the simvastatin. Cholesterol is controlled well. Blood pressure controlled well. Otherwise, avoid strenuous exertion and we discussed that. Follow-up in about [address] time[address] Timing of CT/ultrasound to be 1 year from the prior study. CT scan should be done at [facility] for serial comparison. Ultrasound may be done at [facility]. Orders: Orders US abdominal aortic aneurysm 6 Months I72.3 - Aneurysm of iliac artery CT angio chest aorta 10/20/24 I71.21 - Aneurysm of the ascending aorta, without rupture Referrals Genetics Referral I71.21 - Aneurysm of the ascending aorta, without rupture Coding Level of Care Code Est Pt Level 4 (91059) Diagnoses Aneurysm of ascending aorta without rupture I71.21 Presence of rupture: without rupture Iliac artery aneurysm I72.3 Atherosclerotic cardiovascular disease I25.10 Left anterior fascicular block I44.4
== END 2024-05-31 08:57 | disposition home or self-care (01) ==
PROVIDERS: PCP Internal Medicine; Visit Provider Internal Medicine
DX: I71.21 Aneurysm of the ascending aorta, without rupture (principal); I72.3 Aneurysm of iliac artery; I25.10 Atherosclerotic heart disease of native coronary artery without angina pectoris; I44.4 Left anterior fascicular block
CPT/HCPCS: 99214

== ENCOUNTER → 2024-05-31 08:23 | Outpatient (BNVA) | payer MEDICARE, OTHER, SELFPAY | PROVIDERS: PCP Internal Medicine; Visit Provider Internal Medicine | DX: I71.21 Aneurysm of the ascending aorta, without rupture (principal); I72.3 Aneurysm of iliac artery; I44.4 Left anterior fascicular block; I25.10 Atherosclerotic heart disease of native coronary artery without angina pectoris; I10 Essential (primary) hypertension | CPT/HCPCS: 99212 ==

== ENCOUNTER 2024-09-19 09:30 | Outpatient (AMB) | payer MEDICARE, OTHER, SELFPAY ==
--- NOTE | 2024-09-19 09:40 | A.OFFVIS_ITS ---
Intake Vital Signs 09/19/24 09:41 Height 6 ft Weight 224 lb BMI 30.4 BP 110/80 Blood Pressure Location Rt brachial Position Sitting Respiration 18 Pulse 68 Pulse Source Pulse Oximeter Temp 97.9 F Temp Source Oral Pulse Oximetry (%) 98 Oxygen Delivery Method Room Air Intake Visit Reasons: AWV G0438 Intake Note: Pt is here today for his AWV Allergies amlodipine [AMLODIPINE] Allergy (Unknown, Verified 09/19/24 10:11) AGGRESSION, increase rage amitriptyline [AMITRIPTYLINE] Adverse Reaction (Unknown, Verified 09/19/24 10:11) AGGRESSION atorvastatin Adverse Reaction (Verified 09/19/24 10:11) tachycardia Medication List - Last Reconciled 09/19/24 by Martha Ngueyn MD bupropion HCl XL 300 mg PO QAM cholestyramine (with sugar) 4 gram 4 grams PO DAILY hydrochlorothiazide 12.5 mg PO Q12H 90 days lansoprazole 30 mg PO BID latanoprost 0.005% 1 drp ophthalmic (eye) DAILY losartan 25 mg PO DAILY [magnesium 500 mg PO DAILY] simvastatin 20 mg PO BEDTIME HPI AWV G0438 HPI Details AWV ? 68 year old presents with history of atherosclerotic cardiovascular disease with a history of ascending aortic aneurysm, obesity, mixed anxiety depression, Olmos's esophagus, essential hypertension dyslipidemia, here today for his ? Annual Wellness Visit, initial visit.? He is up-to-date with all his vaccination. Compliant with following his diet and has been exercising regularly. Last fasting lipid panel done 03/15/2024 came back with normal levels, and last fasting glucose was done 04/24/2024 which showed normal results. He states he is not due for his screening colonoscopy. He was recently diagnosed with as mild dilation in his ascending aorta, for which he is being followed by cardiology. ? Medical / Social History Reviewed? Past Medical History ?Yes . ? [place] of Care / Care Team list updated ?Yes . ? Surgical/Hospitalization History ?Yes . ? Current Medications (including OTC and supplements) ?Yes . ? Family History ?Yes . ? Tobacco Control form ?Yes . ? AUDIT-C (Alcohol use) form ?Yes . ? Illicit drug use in Social History ?Yes . ? Current diagnosis of depression? ?Yes, stable and controlled on present treatment ? Appropriate PHQ2/PHQ9 completed ?Yes . ? Data entered by ?[employer] Machine Operator and reviewed by provider ? Fall Risk ? Fall History? Have you had any falls with injury in the past year? ?No . ? Have you had two or more falls in the past year? ?No . ? Fall Risk Assessment: ?No falls in the past year . ? HRA filled out by the patient, reviewed by Provider and scanned. ?? ?AWV ? Balance? Romberg ?negative ? Tandem walk ?Yes . ? Walk and Turn ?Yes . ? Rise from sit to stand ?Yes . ?Vision? Corrective lens ?Yes ? Vision screen ? Up-to-date, sees Dr Carrero, ffsoren on his Glaucoma ?Hearing? Whisper test ?pass . ?Written Plan?Completed. See Patient Documents.? [facility] Medical History (Updated 09/19/24 @ 15:38 by Martha Nguyen MD) Numbness and tingling of both feet History of anemia Long QT interval Left anterior fascicular block Mixed anxiety depressive disorder Traumatic rupture of quadriceps tendon Dislocation of left shoulder joint Depression, major, recurrent, in remission Obesity (BMI 30.0-34.9) Olmos's esophagus determined by biopsy Essential hypertension Dyslipidemia Surgical History Sebaceous cyst (06/24/23) H/O endoscopy H/O neck surgery History of surgery History of surgery History of excision of pilonidal cyst History of removal of cyst History of colonoscopy Family History Father No problems noted. Mother No problems noted. Paternal Grandmother Diabetes mellitus Sister No problems noted. Sister No problems noted. Son No problems noted. Daughter No problems noted. Social History Housing: House Alcohol intake: current Alcohol intake frequency: holidays/special occasions only Alcohol type: beer and wine Patient Tobacco Use Status: Never used Tobacco e-Cigarette/Vaping Use: Never Used Current occupational status: retired Cognitive needs: No Hearing needs: No Vision needs: Yes Questionnaire Medicare Wellness Checkup [age] 65-70 What gender do you identify with?: male During the past 4 weeks, how much have you been bothered by emotional problems such as feeling anxious, depressed, irritable, sad or downhearted, and blue?: slightly During the past 4 weeks, has your physical & emotional health limited your social activities with family, friends, neighbors, or groups?: not at all During the past 4 weeks, how much bodily pain have you generally had?: mild pain During the past 4 weeks, was someone available to help you if you needed & wanted help?: yes, as much as I wanted During the past 4 weeks, what was the hardest physical activity you could do for at least 2 minutes?: moderate Can you get to places out of walking distance without help? (For eg., can you travel alone on buses, taxis or drive your car?): Yes Can you go shopping for groceries or clothes without someone's help?: Yes Can you prepare your own meals?: Yes Can you do your housework without help?: Yes Because of any health problems, do you need the help of another person with your personal care needs such as eating, bathing, dressing or getting around the house?: No Can you handle your own money without help?: Yes During the past 4 weeks, how would you rate your health in general?: very good During the past 4 weeks how have things been going for you?: good & bad parts about equal Are you having difficulties driving your car?: no Do you always fasten your seat belt when you are in a car?: yes, usually During past 4 weeks, have you been bothered by the following: never: Falling or dizzy when standing up, Teeth or denture problems? and Problems using the telephone? and sometimes: Sexual problems?, Trouble eating well? and Tiredness or fatigue? Have you fallen 2 or more times in the past year?: No Are you afraid of falling?: No Are you a smoker?: no During the past 4 weeks, how many drinks of wine, beer, or other alcoholic beverages did you have?: 1 drink or less per week Do you exercise for about 20 minutes 3 or more times a week?: yes, most of the time Have you been given information to help with the following?: no: Hazards in your house that might hurt you? and no: Keeping track of your medications? How often do you have trouble taking medicines the way you have been told to take them?: I always take medicine as prescribed How confident are you that you can control & manage most of your health problems?: somewhat confident What is your race?: White Mini Mental State Exam (MMSE) Orientation What is the (year) (season) (date) (day) (month)?: year (2024), season (Winter), date (09/19/2024), day (Wednesday) and month (September) Where are we (state) (county) (town or city) (hospital) (floor)?: state ([place]), [facility] ([place]), town or city ([place]) and hospital/clinic ([facility]) Score Score: 9 Activity of Daily Living Bathing - sponge bath, tub bath or shower: receives no assistance (gets in/out by self, if usual bathing means Dressing - getting clothes from closets & drawers, including inner/outer garments & fasteners.: gets clothes & gets completely dressed without help Toileting - going to the 'toilet room' for urine/bowel elimination & cleaning self/arranging clothes: goes to toilet room, cleans self, arranges clothes without help Transfer: moves in & out of bed and chair without help (may use support object) Continence: controls urination/bowel movements completely by self Feeding: feeds self without help Total Score: 0 Information obtained from: patient Using telephone: independent Traveling: independent Shopping: independent Preparing meals: independent Housework: independent Taking medicine: independent Managing money: independent PHQ-9 Over the last 2 weeks, how often have you been bothered by any of the following problems? 1. Little interest or pleasure in doing things: not at all 2. Feeling down, depressed, or hopeless: not at all 3. Trouble falling or staying asleep, or sleeping too much: several days 4. Feeling tired or having little energy: not at all 5. Poor appetite or overeating: not at all 6. Feeling bad about yourself - or that you are a failure or have let yourself or your family down: not at all 7. Trouble concentrating on things, such as reading the newspaper or watching television: not at all 8. Moving or speaking so slowly that other people could have noticed. Or the opposite - being so fidgety or restless that you have been moving around a lot more than usual: not at all 9. Thoughts that you would be better off or of hurting yourself in some way: not at all Total score: 1 Depression Screening Interpretation: Negative Depression Screening Done: Yes 73594 - PHQ-9 Billing: Yes Source: Developed by Drs. Asaf Thomas, Holly Henao, Maury Jennings and colleagues, with an educational tiffanie from [employer]. Physical Exam Vital Signs: Last Vital Signs Temp 97.9 F 09/19/24 09:41 Pulse 68 09/19/24 09:41 Resp 18 09/19/24 09:41 BP 110/80 09/19/24 09:41 Pulse Ox 98 09/19/24 09:41 Oxygen Delivery Method Room Air 09/19/24 09:41 BMI result Body Mass Index 30.4 Assessment & Plan Assessment & Plan (1) Encounter for initial annual wellness visit (AWV) in Medicare patient: Code(s): Z00.00 - Encounter for general adult medical examination without abnormal findings Plan: Medical wellness checklist reviewed, discussed with patient and updated. Copy given. Up-to-date with vaccines, will check PSA (2) Dyslipidemia: Code(s): E78.5 - Hyperlipidemia, unspecified Plan: Currently on simvastatin 20 mg at bedtime (3) Essential hypertension: Code(s): I10 - Essential (primary) hypertension Plan: Blood pressure at goal of less than 130/80. Continue with hydrochlorothiazide 12.5 mg daily, losartan 25 mg daily. Reinforced importance of following a low sodium diet, getting regular exercise, and lowering stress levels. (4) Olmos's esophagus determined by biopsy: Code(s): K22.70 - Olmos's esophagus without dysplasia Plan: Continued on lansoprazole 30 mg 1 capsule twice a day and gets upper endoscopy monitoring at least every 6 months. (5) Mixed anxiety depressive disorder: Code(s): F41.8 - Other specified anxiety disorders Plan: Currently on bupropion HCL XL 300 mg daily in a.m. (6) Ascending aortic aneurysm: Code(s): I71.21 - Aneurysm of the ascending aorta, without rupture Qualifiers: Presence of rupture: without rupture Qualified Code(s): I71.21 - Aneurysm of the ascending aorta, without rupture Plan: Followed by cardiology (7) Advanced directives, counseling/discussion: Code(s): Z71.89 - Other specified counseling Plan: Initiated the conversation about Advanced Directives. Advanced Directives help patients prepare for current and future decisions about their medical treatment and place of care. Discussed with patient that it is a process where a patients current condition and prognosis are reviewed, their wishes for information regarding their illness are elicited, and likely medical dilemmas are presented and options discussed. MOLST and healthcare proxy form completed today. These forms can be amended as needed, reviewed yearly and make changes as needed Orders: Orders PSA,Total (Free>4and<10) Today Z12.5 - Encounter for screening for malignant neoplasm of prostate Quality Reporting (2020) Depression/Bipolar (159/160/161/177) PHQ-9: Total score: 1 Coding Level of Care Code Medicare First (G0438) Diagnoses Encounter for initial annual wellness visit (AWV) in Medicare patient Z00.00 Dyslipidemia E78.5 Essential hypertension I10 Olmos's esophagus determined by biopsy K22.70 Mixed anxiety depressive disorder F41.8 Aneurysm of ascending aorta without rupture I71.21 Presence of rupture: without rupture Advanced directives, counseling/discussion Z71.89 CPT Codes Advance Care Planning - Time spent: 16-45 minutes ([id number]) Additional Codes PHQ-9 - 25753 - PHQ-9 Billing: Yes ([id number]) Advance Care Planning Advance Care Planning discussion: Completed/Scanned Date of discussion: 09/19/24 Who was present: Patient Forms completed: Health Care Proxy and MOLST Time spent: 16-45 minutes Actual minutes spent: 10
[2024-09-19 09:41] VITALS: BP 110/80; PULSE 68; RESP 18; TEMP 36.6; O2SAT 98; BMI 30.4
--- OUTSIDE RECORDS SUMMARY | 2024-09-19 10:37 | XMS_ITS | Clinical Summary ---
Author Organization [facility] Address [address] [place] [address] Care Team Providers Care Shovel Engineer Name Role Phone Martha Nguyen MD Primary Care Provider Allergies Active Allergy Reactions Criticality Noted Date Comments Amitriptyline Other (see comments) 02/04/2021 Aggressive behavior Amlodipine Other (see comments) 10/02/2020 Aggressive behavior Atorvastatin Tachycardia High 02/22/2024 Medications buPROPion XL (WELLBUTRIN XL) 300 mg tablet Take 300 mg by mouth 3 times a week. 09/11/2020 Active hydroCHLOROthia zide (HYDRODIURIL) 12.5 mg tablet Take 12.5 mg by mouth 2 times a day. 08/04/2020 Active lansoprazole (PREVACID) 30 mg capsule Take 30 mg by mouth 2 times a day. 07/10/2020 Active latanoprost (XALATAN) 0.005% ophthalmic solution Instill 1 drop into both eyes nightly. at bedtime 08/05/2020 Active losartan (COZAAR) 25 mg tablet Take 25 mg by mouth daily. 09/11/2020 Active potassium chloride (KLOR-CON) 10 mEq CR tablet Take 10 mEq by mouth daily. 08/04/2020 Active simvastatin (ZOCOR) 20 mg tablet Take 20 mg by mouth daily. 08/04/2020 Active multivitamin (THERAGRAN) tablet Take 1 tablet by mouth daily. Active glucosam/chond- msm1/C/lewis/bor (GLUCOSAMINE-CH OND-MSM COMPLEX ORAL) Take 2 tablets by mouth daily. Active ibuprofen (MOTRIN) 400 mg tablet Take 400 mg by mouth daily as needed for pain. Active ascorbic acid (VITAMIN C) 500 mg tablet Take 500 mg by mouth once a day. Active traZODone (DESYREL) 50 mg tablet Take 50 mg by mouth nightly as needed for sleep. Active cholestyramine, bulk, powder 2 times a day. Active Active Problems Problem Noted Date Diagnosed Date GERD without esophagitis 09/16/2020 Olmos's esophagus with high grade dysplasia Immunizations Immunization Administration Dates Next Due Covid-19, Pfizer, mRNA, [place] valent, PF 30 mcg/0.3 mL dose (for ages 12 and older) 11/17/2020,10/27/2020 Family History Medical History Relation Name Comments JORDANA disease Father Glaucoma Father Hypertension Father No Known Problems Mother Relation Name Status Comments Father Alive no contact Mother Alive no contact Social History Tobacco Use Types Packs/Day Years Used Date Smoking Tobacco: Never Smokeless Tobacco: Never Tobacco Cessation:Counseling Given: Not Answered Alcohol Use Standard Drinks/Week Comments Not Currently 0 (1 standard drink = 0.6 oz pur e alcohol) rare, 1 drink/month Sex and Gender Information Value Date Recorded Sex Assigned at Male 07/22/2021 2:40 PM EST Legal Sex Male 9:54 AM EST Gender Identity Male 07/22/2021 2:40 PM EST Sexual Orientation Straight 07/22/2021 2: 40 PM EST Last Filed Vital Signs Vital Sign Reading Time Taken Comments Blood Pressure 123/85 02/22/2024 9:19 AM EDT Pulse 63 02/22/2024 9:19 AM EDT Temperature 36.8 ??C (98.2 ??F) 06/17/2023 1 2:45 PM EST Respiratory Rate 18 06/17/2023 1:00 PM EST Oxygen Saturation 98% 02/22/2024 9:19 AM EDT Inhaled Oxygen Concentration - - Weight 107.9 kg (237 lb 12.8 oz) 02/22/2024 9:19 AM EDT Height 182.9 cm (6') 02/22/2024 9:19 AM EDT Body Mass Index 32.25 02/22/2024 9:19 AM EDT Plan of Treatment Health Maintenance Due Date Last Done Comments Cologuard 1955 Colon Cancer Screening 1955 Colonoscopy 1955 FOBT / Fit Test 1955 Hepatitis C Screening 1955 Sigmoidoscopy 1955 COVID-19 Vaccine ( season) 2024 05/20/2023, 01/18/2023, 05/07/2022, Additional history exists Influenza Vaccine (#1) 2024 , 05/07/2022, 06/29/2021, Additional history exists Gastroscopy (EGD) 06/17/2024 06/17/2023, , 09/10/2022, Additional history exists Alcohol/Substance Use Screening 07/19/2024 Depression Screening and Follow-Up 07/19/2024 Fall Risk Screening 07/19/2024 Health Care Proxy Review 07/19/2024 Social Drivers of Health Annual Screening 07/19/2024 DTaP,Tdap,and Td Vaccines (2 - Td or Tdap) 03/16/2026 03/16/2016 RSV Vaccine (60+ years old and patients) (1 - 1-dose 75+ series) 10/15/2031 Tobacco Screening 07/19/2042 02/22/2024 Zoster Vaccines Completed 07/05/2018, 03/29/2018 Pneumococcal Vaccine: 50+ Years Completed 03/17/2022, 09/17/2017 Hepatitis B Vaccines Aged Out No long er eligible based on patient's age to complete this topic Procedures * Due to [place] Pay[place] law, this organization might not be sharing negative HIV tests. Procedure Name Priority Date/Time Associated Diagnosis Comments UPPER GI ENDOSCOPY 06/17/2023 from Last 3 Months or Most Recently Relevant to Health Maintenance Results * Due to [place] Pay[place] law, this organization might not be sharing negative HIV tests. * UPPER GI ENDOSCOPY (06/17/2023) Narrative Procedure Note Bernice William MD - 06/17/2023 11:58 AM EST [facility] Gastroenter[facility] Patient Name: Evans High Procedure Date: 06/17/2023 11:58AM Date of : 1955 Admit Type: Outpatient Age: 67 Room: [place] [address] Gender: Male Note Status: Finalized Attending MD: Bernice William MD Procedure: Upper GI endoscopy Indications: Follow-up of Olmos's esophagus; LGD s/p ablation Comorbidities Providers: Bernice William MD Referring MD: Requesting Provider: Medicines: Monitored Anesthesia Care Complications: No immediate complications. Estimated Blood Loss: Estimated blood loss: none. Procedure: Pre-Anesthesia Assessment: - Prior to the procedure, a History and Physicalwas performed, and patient medications and allergieswere reviewed. The patient is competent. The risks and benefits of the procedure and the sedation optionsand risks were discussed with the patient. Allquestions were answered and informed consent was obtained. Patient identification and proposed procedure were verified by the physician in the pre-procedurearea. Mental Status Examination: alert and oriented.Airway Examination: normal oropharyngeal airway and neck mobility. Respiratory Examination: clear to auscultation. CV Examination: normal. Prophylactic Antibiotics: The patient does not requireprophylactic antibiotics. Prior Anticoagulants: The patient has taken no anticoagulant or antiplatelet agents. ASA Grade Assessment: II - A patient with mild systemic disease. After reviewing the risks and benefits,the patient was deemed in satisfactory condition to undergo the procedure. The anesthesia plan was touse monitored anesthesia care (MAC). Immediately priorto administration of medications, the patient was re-assessed for adequacy to receive sedatives. The heart rate, respiratory rate, oxygen saturations, blood pressure, adequacy of pulmonary ventilation,and response to care were monitored throughout the procedure. The physical status of the patient was re-assessed after the procedure. After obtaining informed consent, the endoscope was passed under direct vision. Throughout theprocedure, the patient's blood pressure, pulse, and oxygen saturations were monitored continuously. The was introduced through the mouth, and advanced to the second part of duodenum. The upper GI endoscopy was accomplished without difficulty. The patienttolerated the procedure well. Findings: The Z-line was irregular and was found 38 cm from the incisors.Biopsies were taken with a cold forceps for histology. Verification of patient identification for the specimen was done. Estimated blood loss was minimal. A medium-sized hiatal hernia was present. The examined duodenum was normal. Impression: - Z-line irregular, 38 cm from the incisors.Biopsied. - Medium-sized hiatal hernia. - Normal examined duodenum. Recommendation: - Await pathology results. - Telephone endoscopist for pathology results in 1 week. - Return to referring physician (date not yet determined). - Repeat upper endoscopy in 1 year for surveillanceif no Barretts and 6 month for ablation if evidence of Barretts. Bernice William MD 06/17/2023 12:40:29 PM This report has been signed electronically. Number of Addenda: 0 Note Initiated On: 06/17/2023 11:58 AM us Bernice William MD PROVATION PROCEDURES Final Res ult from Last 3 Months or Most Recently Relevant to Health Maintenance Insurance MEDICARE [facility] SUPP [facility] Care Teams Shovel Engineer Relationship Specialty Start Date End Date Martha Nguyen MD [address] [place] [address] PCP - General Internal Medicine 02/02/24
--- OUTSIDE RECORDS SUMMARY | 2024-09-19 10:37 | XMS_ITS ---
Author Organization [facility] Address [address] [place] [address] Care Team Providers Care Surgical Aide Name Role Phone Wendy GARZA, Martha Primary Care Provider Asaf Sanchez [phone] ALLERGIES Allergen (clinical drug ingredient) Drug/Non Drug Allergy documented on EMR Reaction Allergy Type Onset Date Status amlodipine Amlodipine Besylate headaches/elevat ed blood pressure Drug Allergy Active REASON FOR VISIT Patient presents today for kimball's,gerd MEDICATIONS Medication SIG (Take, Route, Frequency, Duration) Notes Start Date End Date Status Lansoprazole 30 MG 1 capsule Orally Twi ce a day for 30 day(s) 04/12/2023 Active Lansoprazole 30 MG TAKE 1 CAPSULE BY MOUTH TWICE A DAY for 90 Active traZODone HCl 50 MG TK 1 T PO HS PRN Ora l for 30 Active hydroCHLOROthiazide Unknown Cholestyramine 4 GM/DOSE 1 scoop in an 8 ounce glass of water or orange juice Orally Twice a day for 90 days Active Losartan Potassium 25 MG TAKE 1 TABLET B Y MOUTH EVERY DAY Oral for 30 Active buPROPion HCl ER (XL) 300 MG TAKE 1 TABL ET BY MOUTH EVERY DAY IN THE MORNING Oral twice a week Active Calcium Active Zinc Active Magnesium Active Klor-Con 20 MEQ as directed Orally Once a day Active Centrum Silver Activ e Latanoprost Active Simvastatin Active VITAL SIGNS Temperature 96.9 degrees Fahrenheit 12/09/19 24 Blood pressure systolic 000 mm Hg 12/09/19 24 Blood pressure diastolic 00 mm Hg 024 Height 72 in 12/09/2023 Weight 240 lb 6 oz lbs 12/09/2023 BMI 32.60 kg/m2 12/09/2023 Encounters Encounter Location Date Provider Diagnosis [facility] [address] [place] [address] 12/09/2023 Asaf Rosales Gastroesophageal ref lux disease, esophagitis presence not specified K21.9 ; Kimball's esophagus with high grade dysplasia K22.711 ; Diarrhea R19.7 and Encounter for screening for malignant neoplasm of colon Z12.11 ASSESSMENTS Encounter Date Diagnosis Assessment Notes Treatment Notes Treatment Clinical Notes 12/09/2023 Gastroesophageal reflux disease, esophagitis presence not specified (ICD-10 - K21.9) Continue Lansoprazole twice a day 12/09/2023 Kimball's esophagus with high grade dysplasia (ICD-10 - K22.711) 12/09/2023 Diarrhea (ICD-10 - R19.7) Continue Cholestyramine powder 12/09/2023 Encounter for screening for malignant neoplasm of colon (ICD-10 - Z12.11) Repeat colonoscopy in 2025 PLAN OF TREATMENT Treatment Notes Assessment Notes Gastroesophageal reflux dise ase, esophagitis presence not specified Continue Lansoprazole twice a day Diarrhea Continue Cholestyram ine powder Encounter for screening for malignant neoplasm of colon Repeat colonoscopy in 2025 Next Appt Details Follow Up: prn, Reason: Progress Notes * Examination Category Sub-Category Detail Notes General Examination GENERAL APPEARANCE: pleasant , well nourished, well developed, in no acute distress HEAD: EYES: sclera non-icteric EARS: NOSE: THROAT: NECK/THYROID: no cervical lymphade nopathy, neck supple HEART: S1, S2 normal CHEST: LUNGS: clear to auscultatio n bilaterally ABDOMEN: normal bowel sounds, no guarding or rigidity, no guarding or rigidity, no masses palpable, soft, nontender, nondistended NEUROLOGIC: alert and oriented SKIN: nonjaundiced, no spi aarti angiomata EXTREMITIES: no edema PERIPHERAL PULSES: BACK: BREASTS: MUSCULOSKELETAL: MALE GENITOURINARY: LYMPH NODES: RECTAL EXAM: FEMALE GENITOURINARY: ORAL CAVITY: mucosa moist
--- OUTSIDE RECORDS SUMMARY | 2024-09-19 10:37 | XMS_ITS | Referral Summary ---
Author Organization [facility] Address [address] [place] [address] Care Team Providers Care Line Maintenance Name Role Phone Martha Nguyen MD Primary [...] Administration Dates Next Due Covid-19, Pfizer, mRNA, [place] valent, PF 30 mcg/0.3 mL dose (for ages 12 and older) 11/17/2020,10/27/2020 Social History Tobacco Use Types Packs/Day Years [...] 02/22/2024 9:19 AM EDT Plan of Treatment Not on file Procedures * Due to [place] state law, this organization might not be sharing negative HIV tests. Procedure Name Priority Date/Time Associated Diagnosis Comments UPPER GI ENDOSCOPY 06/17/2023 from Last 3 Months or Most Recently Relevant to Health Maintenance Results * Due to [place] state law, this organization might not be sharing negative HIV tests. * UPPER GI ENDOSCOPY (06/17/2023) Narrative Procedure Note Bernice William MD - 06/17/2023 11:58 AM EST [facility] Gastroenterology Patient Name: Evans High Procedure Date: 06/17/2023 11:58AM Date of : 1955 Admit Type: Outpatient Age: 67 Room: [place] [address] Gender: Male Note Status: Finalized Attending MD: [...] 0 Note Initiated On: 06/17/2023 11:58 AM Bernice William MD PROVATION PROCEDURES Final Res ult from Last 3 Months or Most Recently Relevant to Health Maintenance Insurance MEDICARE [facility] [place] [address] [address] Care Teams Line Maintenance Relationship Specialty Start Date End Date Martha Nguyen MD [address] [place] [address] PCP - General Internal Medicine 02/02/24
--- OUTSIDE RECORDS SUMMARY | 2024-09-19 10:37 | XMS_ITS | Patient Health Record ---
Author Organization [facility] Address [address] [place] [address] Care Team Providers Care Treasury Consultant Name Role Phone Wendy GARZA, Martha Primary Care Provider Asaf Sanchez [phone] ALLERGIES Allergen (clinical drug ingredient) Drug/Non Drug Allergy documented on EMR Reaction Allergy Type Onset Date Status amlodipine Amlodipine Besylate headaches/elevat ed blood pressure Drug Allergy Active REASON FOR REFERRAL No Information MEDICATIONS Medication SIG (Take, Route, Frequency, Duration) Notes Start Date End Date Status Calcium Active Centrum Silver Activ e Latanoprost Active hydroCHLOROthiazide Unknown Simvastatin Active Lansoprazole 30 MG TAKE 1 CAPSULE BY MOUTH TWICE A DAY for 90 Active Zinc Active Magnesium Active Losartan Potassium 25 MG TAKE 1 TABLET B Y MOUTH EVERY DAY Oral for 30 Active Klor-Con 20 MEQ as directed Orally Once a day Active traZODone HCl 50 MG TK 1 T PO HS PRN Ora l for 30 Active buPROPion HCl ER (XL) 300 MG TAKE 1 TABL ET BY MOUTH EVERY DAY IN THE MORNING Oral twice a week Active Cholestyramine 4 GM/DOSE 1 scoop in an 8 ounce glass of water or orange juice Orally Twice a day for 90 days Active IMMUNIZATIONS Vaccine Route Administration Date Status Comme nts Influenza Unknown 05/11/2023 Administered Influenza Unknown 04/25/2019 Refused Influenza Unknown 06/09/2022 Refused SOCIAL HISTORY Sex Assigned At : Social History Observation Description Sex Assigned At Unknown PROBLEMS Problem Type ICD Code Onset Dates Problem Status W/U Status Risk SNOMED Code Notes Problem Encounter for screening for malignant neoplasm of colon (Z12.11) Active confirmed 407535453 Problem Diarrhea (R19.7) Active confirmed 97804 008 Problem Weight loss (R63.4) Active confirmed 6826889 Problem 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) Active confirmed [id number] Problem 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) Active confirmed 1466338535409905 Problem Irritable bowel syndrome with diarrhea (K58.0) Active confirmed 746299511 Problem Encounter for screening for malignant neoplasm of rectum (Z12.12) Active confirmed Screening for malignant neoplasm of rectum (524680676) Problem Abdominal pain, epigastric (R10.13) Active confirmed Epigastr ic pain (95928086) Problem Gastroesophageal reflux disease, esophagitis presence not specified (K21.9) Active confirmed 823259200 Problem Hiatal hernia (K44.9) Active confirmed 10545421 Problem Diarrhea, unspecified type (R19.7) Active confirmed 53494260 VITAL SIGNS Temperature 96.9 degrees Fahrenheit 12/09/2023 Blood pressure diastolic 00 mm Hg 12/09/2023 Height 72 in 12/09/2023 Blood pressure systolic 000 mm Hg 12/09/2023 Weight 240 lb 6 oz lbs 12/09/2023 BMI 32.60 kg/m2 12/09/2023 Encounters Encounter Location Date Provider Diagnosis [facility] [address] [place] [phone] 12/09/2023 Asaf Rosales Gastroesophageal ref lux disease, esophagitis presence not specified K21.9 ; Olmos's esophagus with high grade dysplasia K22.711 ; Diarrhea R19.7 and Encounter for screening for malignant neoplasm of colon Z12.11 [facility] [address] [place] [phone] 02/21/2024 Asaf Rosales [facility] [address] [place] [phone] 03/20/2024 Asaf Rosales ASSESSMENTS Encounter Date Diagnosis Assessment Notes Treatment Notes Treatment Clinical Notes 12/09/2023 Olmos's esophagus with high grade dysplasia (ICD-10 - K22.711) 12/09/2023 Gastroesophageal reflux disease, esophagitis presence not specified (ICD-10 - K21.9) Continue Lansoprazole twice a day 12/09/2023 Diarrhea (ICD-10 - R19.7) Continue Cholestyramine powder 12/09/2023 Encounter for screening for malignant neoplasm of colon (ICD-10 - Z12.11) Repeat colonoscopy in 2025 PLAN OF TREATMENT Future Test Test Name Order Date UPPER GI ENDOSCOPY 03/27/2016 UPPER GI ENDOSCOPY 03/30/2017 UPPER GI ENDOSCOPY 03/22/2018 UPPER GI ENDOSCOPY 04/25/2019 UPPER GI ENDOSCOPY 05/21/2020 Insurance Providers Payer Name Payer Address Payer Phone Subscriber Number Group Number Insured Name Patient Relationship to Insured Coverage Start Date Coverage End Date MEDICARE OF [place] [address] [place] [address] [phone] [id number] ARJUN HIGH Self - patient is the insured [facility] [address] [place] [address] [id number] ARJUN HIGH Self - patient is [...] a negative sleep study at home in 2013 Denies [place],DM,CVA,Lung disease,renal dise ase Colonoscopy [place] [address] 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 William in September and January of 2021. Endoscopy report from January he states that he still had a long segment of Olmos's mucosa noted. A small esophageal mucosal nodule was removed during the September endoscopy and this was benign tissue. He underwent two more ablati on procedures in July of 2021 and October of [address] William at [facility]. The endoscopy in October of 2021 revealed a 1 cm long segment of Olmos's mucosa just above the gastroesophageal junction and then multiple islands of Olmos's mucosa extending to 25 cm. This was much improved as compared to the long circumferential segment of Olmos's mucosa that had been there originally. He had another ablation and upper endoscopy at [facility] in 01/2022 and 08/2022 Upper endoscopy at [facility] 2022 was negative for any sign of residual Olmos's esophagus or dysplasia Surgical History Surgery Date(Month/Year) REATTACHED BICEPS MUSCLE 1991--RIGHT CYST REMOVED FROM BACK AND BACK OF HEAD Bilateral quadriceps tendon rupture with repair-Dr. Dubose
--- OUTSIDE RECORDS SUMMARY | 2024-09-19 10:37 | XMS_ITS ---
Author Organization [facility] Address [address] [place] [phone] Care Team Providers Care Tensioning Machine Operator Name Role Phone Wendy GARZA, Martha Primary Care Provider Asaf Sanchez [facility] [phone] REASON FOR VISIT New Refill Request MEDICATIONS Medication SIG (Take, Route, Frequency, Duration) Notes Start Date End Date Status Cholestyramine 4 GM/DOSE 1 scoop in an 8 ounce glass of water or orange juice Orally Twice a day for 90 days Active Encounters Encounter Location Date Provider Diagnosis [facility] [address] [phone] 03/20/2024 Asaf Rosales PLAN OF TREATMENT Medication Medication Name Sig Start Date Stop Date Notes Cholestyramine 4 GM/DOSE 1 scoop in an 8 ounce glass of water or orange juice Orally Twice a day for 90 days
--- OUTSIDE RECORDS SUMMARY | 2024-09-19 10:37 | XMS_ITS ---
Author Organization [facility] Address [address] [place] [phone] Care Team Providers Care Warehouse Operations Associate Name Role Phone Wendy GARZA, Martha Primary Care Provider Asaf Sanchez [facility] [phone] REASON FOR VISIT New Refill Request MEDICATIONS Medication SIG (Take, Route, Frequency, Duration) Notes Start Date End Date Status Cholestyramine 4 GM/DOSE 1 scoop in an 8 ounce glass of water or orange juice Orally Twice a day for 90 days Active Encounters Encounter Location Date Provider Diagnosis [facility] [address] [address] 02/21/2024 Asaf Rosales PLAN OF TREATMENT Medication Medication Name Sig Start Date Stop Date Notes Cholestyramine 4 GM/DOSE 1 scoop in an 8 ounce glass of water or orange juice Orally Twice a day for 90 days
== END 2024-09-19 10:42 | disposition home or self-care (01) ==
PROVIDERS: PCP Internal Medicine; Visit Provider Internal Medicine
DX: Z00.00 Encounter for general adult medical examination without abnormal findings (principal); E78.5 Hyperlipidemia, unspecified; I71.21 Aneurysm of the ascending aorta, without rupture; I10 Essential (primary) hypertension; K22.70 Barrett's esophagus without dysplasia; F41.8 Other specified anxiety disorders; Z71.89 Other specified counseling

== ENCOUNTER → 2024-09-19 09:30 | Outpatient (BNVA) | payer MEDICARE, OTHER, SELFPAY | PROVIDERS: PCP Internal Medicine; Visit Provider Internal Medicine | DX: Z00.00 Encounter for general adult medical examination without abnormal findings (principal); E78.5 Hyperlipidemia, unspecified; I10 Essential (primary) hypertension; K22.70 Barrett's esophagus without dysplasia; F41.8 Other specified anxiety disorders; I71.21 Aneurysm of the ascending aorta, without rupture; Z71.89 Other specified counseling | CPT/HCPCS: 96127 ==

== ENCOUNTER 2024-09-20 09:53 | Outpatient (REF) | payer MEDICARE, OTHER, SELFPAY ==
--- OUTSIDE RECORDS SUMMARY | 2024-09-20 11:25 | XMS_ITS | Referral Summary ---
Author Organization [facility] Address [address] [place] [address] Care Team Providers Care Photographer Apprentice Lithographic Name Role Phone Martha Nguyen MD Primary [...] Administration Dates Next Due Covid-19, Pfizer, mRNA, [place] valent, PF 30 mcg/0.3 mL dose (for [...] Not on file Procedures * Due to [place] state law, this organization might not be sharing negative HIV tests. Procedure Name Priority Date/Time Associated Diagnosis Comments UPPER GI ENDOSCOPY 06/17/2023 from Last 3 Months or Most Recently Relevant to Health Maintenance Results * Due to [place] state law, this organization might not be sharing negative HIV tests. * UPPER GI ENDOSCOPY (06/17/2023) Narrative Procedure Note Bernice William MD - 06/17/2023 11:58 AM EST [facility] Gastroenter[facility] Patient Name: Evans High Procedure Date: 06/17/2023 11:58AM Date of : 1955 Admit Type: Outpatient Age: 67 Room: [place] [address] Gender: Male Note Status: Finalized Attending MD: [...] Recently Relevant to Health Maintenance Insurance MEDICARE [facility] [place] [address] [place] [address] Care Teams Photographer Apprentice Lithographic Relationship Specialty Start Date End Date Martha Nguyen MD [address] [place] [address] PCP - General Internal Medicine 02/02/24
--- OUTSIDE RECORDS SUMMARY | 2024-09-20 11:25 | XMS_ITS | Clinical Summary ---
Author Organization [facility] Address [address] [place] [address] Care Team Providers Care Triage Registered Nurse Name Role Phone Martha Nguyen MD Primary [...] Administration Dates Next Due Covid-19, Pfizer, mRNA, [place] valent, PF 30 mcg/0.3 mL dose (for [...] complete this topic Procedures * Due to [place] [employer] law, this organization might not be sharing negative HIV tests. Procedure Name Priority Date/Time Associated Diagnosis Comments UPPER GI ENDOSCOPY 06/17/2023 from Last 3 Months or Most Recently Relevant to Health Maintenance Results * Due to [place] [employer] law, this organization might not be sharing negative HIV tests. * UPPER GI ENDOSCOPY (06/17/2023) Narrative Procedure Note Bernice William MD - 06/17/2023 11:58 AM EST [facility] Patient Name: Evans High Procedure Date: 06/17/2023 11:58AM Date of : 1955 Admit Type: Outpatient Age: 67 Room: [place] [address] Gender: Male Note Status: Finalized Attending MD: [...] Recently Relevant to Health Maintenance Insurance MEDICARE [facility] Care Teams Triage Registered Nurse Relationship Specialty Start Date End Date Martha Nguyen MD [address] [place] [address] PCP - General Internal Medicine 02/02/24
--- OUTSIDE RECORDS SUMMARY | 2024-09-20 11:25 | XMS_ITS ---
Author Organization [facility] Address [address] [place] [phone] Care Team Providers Care Delivery Consultant Name Role Phone Wendy GARZA, Martha Primary Care Provider Asaf Sanchez [phone] REASON FOR VISIT New Refill Request Medications Medication SIG (Take, Route, Frequency, Duration) Notes Start Date End Date Status Cholestyramine 4 GM/DOSE 1 scoop in an 8 ounce glass of water or orange juice Orally Twice a day for 90 days Active Encounters Encounter Location Date Provider Diagnosis [facility] [address] [address] 02/21/2024 Asaf Rosales Plan Of Treatment Medication Medication Name Sig Start Date Stop Date Notes Cholestyramine 4 GM/DOSE 1 scoop in an 8 ounce glass of water or orange juice Orally Twice a day for 90 days Progress Notes * JOS HIGHHDOB: (68 yo M)Acc No.[id number]:02/21/2024 Patient:?ARJUN HIGH :1955???Age:68 Y???Sex:Male Address:[address] [place] [address], [address] * Refills? Refill Cholestyramine Powder, 4 GM/DOSE, Orally, 5, 1 scoop in an 8 ounce glass of water or orange juice, Twice a day, 90 days, Refills=0 * true * Date:? Generated for Printi ng/Reanna/Curtisitting on:?09/20/2024 11:24 AM EST
--- OUTSIDE RECORDS SUMMARY | 2024-09-20 11:25 | XMS_ITS ---
Author Organization [facility] Address [address] [place] [phone] Care Team Providers Care Breast Splitter Name Role Phone Wendy GARZA, Martha Primary Care Provider Asaf Sanchez [phone] REASON FOR VISIT New Refill Request Medications Medication SIG (Take, Route, Frequency, Duration) Notes Start Date End Date Status Cholestyramine 4 GM/DOSE 1 scoop in an 8 ounce glass of water or orange juice Orally Twice a day for 90 days Active Encounters Encounter Location Date Provider Diagnosis [facility] [address] [address] 03/20/2024 Asaf Rosales Plan Of Treatment Medication Medication Name Sig Start Date Stop Date Notes Cholestyramine 4 GM/DOSE 1 scoop in an 8 ounce glass of water or orange juice Orally Twice a day for 90 days Progress Notes * JOS HIGHHDOB: (68 yo M)Acc No.[id number]:03/20/2024 Patient:?ARJUN HIGH :1955???Age:68 Y???Sex:Male Address:[address] [place] [address], [address] * Refills? Refill Cholestyramine Powder, 4 GM/DOSE, Orally, 5, 1 scoop in an 8 ounce glass of water or orange juice, Twice a day, 90 days, Refills=3 * true * Date:? Generated for Printi ng/Reanna/Curtisitting on:?09/20/2024 11:25 AM EST
--- OUTSIDE RECORDS SUMMARY | 2024-09-20 11:25 | XMS_ITS | Patient Health Record ---
Author Organization [facility] Address [address] [place] [address] Care Team Providers Care Income Tax Investigator Name Role Phone Wendy GARZA, Martha Primary Care Provider Asaf Sanchez [phone] Allergies Allergen (clinical drug ingredient) Drug/Non Drug Allergy documented on EMR Reaction Allergy Type Onset Date Status amlodipine Amlodipine Besylate headaches/elevat ed blood pressure Drug Allergy Active Reason For Referral No Information Medications Medication SIG (Take, Route, Frequency, Duration) [...] Twice a day for 90 days Active Immunizations Vaccine Route Administration Date Status Comme nts Influenza Unknown 05/11/2023 Administered Influenza Unknown 04/25/2019 Refused Influenza Unknown 06/09/2022 Refused Problems Problem Type SNOMED Code ICD Code Onset Dates Problem Status W/U Status Risk Notes Problem 147324573 Encounter for screening for malignant neoplasm of colon (Z12.11) Active confirmed Problem 56846630 Diarrhea (R19.7) Active confirmed Problem 472765515 Weight loss (R63.4) Active confirmed Problem 5093967285094785 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) Active confirmed Problem 9192943806958886 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) Active confirmed Problem 215294006 Irritable bowel syndrome with diarrhea (K58.0) Active confirmed Problem Screening for malignant neoplasm of rectum (745202656) Encounter for screening for malignant neoplasm of rectum (Z12.12) Active confirmed Problem Epigastric pain (00822509) Abdominal pain, epigastric (R10.13) Active confirmed Problem 010019918 Gastroesophageal reflux disease, esophagitis presence not specified (K21.9) Active confirmed Problem 54575834 Hiatal hernia (K44.9) Active confirmed Problem 27720513 Diarrhea, unspecified type (R19.7) Active confirmed Vital Signs Temperature 96.9 degrees Fahrenheit 12/09/2023 Blood pressure diastolic 00 mm Hg 12/09/2023 Height 72 in 12/09/2023 Blood pressure systolic 000 mm Hg 12/09/2023 Weight 240 lb 6 oz lbs 12/09/2023 BMI 32.60 kg/m2 12/09/2023 Encounters Encounter Location Date Provider Diagnosis [facility] [address] [place] [phone] 12/09/2023 Asaf Rosales Gastroesophageal ref lux disease, esophagitis presence not specified K21.9 ; Olmos's esophagus with high grade dysplasia K22.711 ; Diarrhea R19.7 and Encounter for screening for malignant neoplasm of colon Z12.11 [facility] [address] [place] [phone] 02/21/2024 Asaf Rosales [facility] [address] [place] [phone] 03/20/2024 Asaf Rosales Assessments Encounter Date Diagnosis (ICD Code) Assessment Notes Treatment Notes Treatment Clinical Notes Section Notes 12/09/2023 Olmos's esophagus with high grade dysplasia (ICD-10 - K22.711) Overall, Vini appears quite well. We did review his most recent upper endoscopy results from last May and obviously that is very good news considering the previous long segment of Olmos's esophagus with high-grade dysplasia. He will continue his current regimen of the lansoprazole twice a day and reports that he will be undergoing a followup endoscopy at [facility] in May of this year. His bowel movements remain regular on his cholestyramine regimen and I did advise him to continue that on a long-term basis. He did review that he'll be due for a colonoscopy for screening in 2025. If things remains stable I will plan to see him otherwise a p.r.n. basis. I advised him to try to forward me a copy of his May endoscopy later this year. I did advise him to call me prior to 2025 if any problems or questions I can be of assistance with. Vini was very comfortable with this plan. Thank you again for allowing me to participate in Vini's care. I shall continue to keep you advised of this progress as needed. 12/09/2023 Gastroesophageal reflux disease, esophagitis presence not specified (ICD-10 - K21.9) Continue Lansoprazole twice a day Overall, Vini appears quite well. We did review his most recent upper endoscopy results from last May and obviously that is very good news considering the previous long segment of Olmos's esophagus with high-grade dysplasia. He will continue his current regimen of the lansoprazole twice a day and reports that he will be undergoing a followup endoscopy at [facility] in May of this year. His bowel movements remain regular on his cholestyramine regimen and I did advise him to continue that on a long-term basis. He did review that he'll be due for a colonoscopy for screening in 2025. If things remains stable I will plan to see him otherwise a p.r.n. basis. I advised him to try to forward me a copy of his May endoscopy later this year. I did advise him to call me prior to 2025 if any problems or questions I can be of assistance with. Vini was very comfortable with this plan. Thank you again for allowing me to participate in Vini's care. I shall continue to keep you advised of this progress as needed. 12/09/2023 Diarrhea (ICD-10 - R19.7) Continue Cholestyramine powder Overall, Vini appears quite well. We did review his most recent upper endoscopy results from last May and obviously that is very good news considering the previous long segment of Olmos's esophagus with high-grade dysplasia. He will continue his current regimen of the lansoprazole twice a day and reports that he will be undergoing a followup endoscopy at [facility] in May of this year. His bowel movements remain regular on his cholestyramine regimen and I did advise him to continue that on a long-term basis. He did review that he'll be due for a colonoscopy for screening in 2025. If things remains stable I will plan to see him otherwise a p.r.n. basis. I advised him to try to forward me a copy of his May endoscopy later this year. I did advise him to call me prior to 2025 if any problems or questions I can be of assistance with. Vini was very comfortable with this plan. Thank you again for allowing me to participate in Vini's care. I shall continue to keep you advised of this progress as needed. 12/09/2023 Encounter for screening for malignant neoplasm of colon (ICD-10 - Z12.11) Repeat colonoscopy in 2025 Overall, Vini appears quite well. We did review his most recent upper endoscopy results from last May and obviously that is very good news considering the previous long segment of Olmos's esophagus with high-grade dysplasia. He will continue his current regimen of the lansoprazole twice a day and reports that he will be undergoing a followup endoscopy at [facility] in May of this year. His bowel movements remain regular on his cholestyramine regimen and I did advise him to continue that on a long-term basis. He did review that he'll be due for a colonoscopy for screening in 2025. If things remains stable I will plan to see him otherwise a p.r.n. basis. I advised him to try to forward me a copy of his May endoscopy later this year. I did advise him to call me prior to 2025 if any problems or questions I can be of assistance with. Vini was very comfortable with this plan. Thank you again for allowing me to participate in Vini's care. I shall continue to keep you advised of this progress as needed. Plan Of Treatment Future Test Test Name Order Date UPPER GI ENDOSCOPY 03/27/2016 UPPER GI ENDOSCOPY 03/30/2017 UPPER GI ENDOSCOPY 03/22/2018 UPPER GI ENDOSCOPY 04/25/2019 UPPER GI ENDOSCOPY 05/21/2020 Insurance Providers Payer Name Payer Address Payer Phone Subscriber Number Group Number Insured Name Patient Relationship to Insured Coverage Start Date Coverage End Date MEDICARE OF [place] [address] [place] [id number] ARJUN HIGH Self - patient is the insured [facility] [address] [place] [phone] [id number] ARJUN HIGH Self - patient is the insured Medical (General) History Medical History History ICD Code HTN OBESITY [...] study at home in approx 2013 Denies LA,DM,CVA,Lung disease,renal dise ase Colonoscopy [place] [address] 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 William in September and January of 2021. Endoscopy report from January he states that he still had a long segment of Olmos's mucosa noted. A small esophageal mucosal nodule was removed during the September endoscopy and this was benign tissue. He underwent two more ablati on procedures in July of 2021 and October of [address] William at [facility]. The endoscopy in October of 2021 revealed a 1 cm long segment of Olmos's mucosa just above the gastroesophageal junction and then multiple islands of Olmos's mucosa extending to 25 cm. This was much improved as compared to the long circumferential segment of Olmos's mucosa that had been there originally. He had another ablation and upper endoscopy at [facility] in 01/2022 and 08/2022 Upper endoscopy at [facility]2022 was negative for any sign of residual Olmos's esophagus or dysplasia Surgical History Surgery Date(Month/Year) REATTACHED BICEPS MUSCLE 1991--RIGHT CYST REMOVED FROM BACK AND BACK OF HEAD Bilateral quadriceps tendon rupture with repair-Dr. Dubose
--- OUTSIDE RECORDS SUMMARY | 2024-09-20 11:25 | XMS_ITS ---
Author Organization [facility] Address [address] [place] [address] Care Team Providers Care Senior Cost Accountant Name Role Phone Wendy GARZA, Martha Primary Care Provider Asaf Sanchez [phone] Allergies Allergen (clinical drug ingredient) Drug/Non Drug Allergy documented on EMR Reaction Allergy Type Onset Date Status amlodipine Amlodipine Besylate headaches/elevat ed blood pressure Drug Allergy Active REASON FOR VISIT Patient presents today for kimball's,gerd Medications Medication SIG (Take, Route, Frequency, Duration) [...] Silver Activ e Latanoprost Active Simvastatin Active Vital Signs Temperature 96.9 degrees Fahrenheit 12/09/19 24 Blood pressure systolic 000 mm Hg 12/09/19 24 Blood pressure diastolic 00 mm Hg 024 Height 72 in 12/09/2023 Weight 240 lb 6 oz lbs 12/09/2023 BMI 32.60 kg/m2 12/09/2023 Encounters Encounter Location Date Provider Diagnosis [facility] [address] [place] [address] 12/09/2023 Asaf Rosales Gastroesophageal ref lux disease, esophagitis presence not specified K21.9 ; Kimball's esophagus with high grade dysplasia K22.711 ; Diarrhea R19.7 and Encounter for screening for malignant neoplasm of colon Z12.11 Assessments Encounter Date Diagnosis (ICD Code) Assessment Notes Treatment Notes Treatment Clinical Notes Section Notes 12/09/2023 Gastroesophageal reflux disease, esophagitis presence not specified (ICD-10 - K21.9) Continue Lansoprazole twice a day Overall, Vini appears quite well. We did review his most recent upper endoscopy results from last May and obviously that is very good news considering the previous long segment of Kimball's esophagus with high-grade dysplasia. He will continue his current regimen of the lansoprazole twice a day and reports that he will be undergoing a followup endoscopy at [facility] in May of this year. His bowel [...] advised of this progress as needed. 12/09/2023 Kimball's esophagus with high grade dysplasia (ICD-10 - K22.711) Overall, Vini appears quite well. We did review his most recent upper endoscopy results from last May and obviously that is very good news considering the previous long segment of Kimball's esophagus with high-grade dysplasia. He will continue his current regimen of the lansoprazole twice a day and reports that he will be undergoing a followup endoscopy at [facility] in May of this year. His bowel [...] news considering the previous long segment of Kimball's esophagus with high-grade dysplasia. He will continue his current regimen of the lansoprazole twice a day and reports that he will be undergoing a followup endoscopy at [facility] in May of this year. His bowel [...] news considering the previous long segment of Kimball's esophagus with high-grade dysplasia. He will continue his current regimen of the lansoprazole twice a day and reports that he will be undergoing a followup endoscopy at [facility] in May of this year. His bowel [...] to forward me a copy of his November endoscopy later this year. I did advise him to call me prior to 2025 if any problems or questions I can be of assistance with. Vini was very comfortable with this plan. Thank you again for allowing me to participate in Vini's care. I shall continue to keep you advised of this progress as needed. Plan Of Treatment Treatment Notes Assessment Notes Gastroesophageal reflux dise ase, esophagitis presence not specified Continue Lansoprazole twice a day Diarrhea Continue Cholestyram ine powder Encounter for screening for malignant neoplasm of colon Repeat colonoscopy in 2025 Next Appt Details Follow Up: prn, Reason: Progress Notes * JOS HIGHHDOB: 7 (68 yo M)Acc No.[id number]:12/09/2023 Progress Notes Patient:?ARJUN HIGH Provider:?Asaf Rosales MD :[id number]???Age:68 Y???Sex:Male Keegan e:12/09/2023 Address:[address] [place] [address] Pcp:Martha Nguyen MD Subjective: * Chief Complaints: * ???Patient presents today fo r kimball's,gerd * HPI: ???incontinence:? I saw Vini in followup today in regard to his underlying history of Kimball's esophagus with high-grade dysplasia, chronic gastroesophageal reflux, diarrhea, and discussion of colorectal cancer screening. ?I last saw Vini in November of 2022. Since that time he has continued to be followed at [facility] for his Kimball's esophagus with high-grade dysplasia. His most recent upper endoscopy there in May of 2023 revealed no gross evidence of Kimball's esophagus and biopsies from the gastroesophageal junction were also negative for any sign of Kimball's esophagus or dysplasia. He remains on lansoprazole twice a day with good relief of his reflux symptoms. He denies any significant heartburn, dysphagia, anorexia, early satiety, nausea, nor vomiting. He denies abdominal pain, jaundice, nor unintentional weight loss. ?His bowel movements remained fairly regular with his cholestyramine twice a day. He is not having any significant diarrhea, hematochezia, nor melena. * ROS:?General/Constitutional:?Change in appetite?denies.?Chills?denies.?Fatigue?denies.?Ophthalmologic:?Comments?all negative.?ENT:?Comments?all negative.?Respiratory:?hemoptysis?denies.?Cough?denies.?Cardiovascular:?Chest pain?denies.?Orthopnea?denies.?Gastrointestinal:?Comments?See HPI for details.?Genitourinary:?Hematuria?denies.?Dysuria?denies.?Musculoskeletal:?Painful joints?as per PMH.?Weakness?denies.?Skin:?Itching?denies.?Rash?denies.?Neurologic:?Headache?denies.?Seizures?denies.?Psychiatric:?Comments?Per [facility]H.? * Medical History:? * Surgical History:?REATTACHED BICEPS MUSCLE 1991--RIGHT CYST REMOVED FROM BACK AND BACK OF HEAD Bilateral quadriceps tendon rupture with repair-Dr. Dubose * Hospitalization/Major Diagno stic Procedure:?No Hospitalization History. * Family History:?Father: unkn own, diagnosed with HTN (hypertension).?Mother: unknown.? no known hx of colon cancer or polyps. No family history of liver cancer. * Social History:?Tobacco Use:?Tobacco Use/Smoking?Are you a: nonsmoker.?Drugs/Alcohol:?Alcohol Screen?Points: 1, Interpretation: Negative.?Miscellaneous:?Caffeine: 1-2 cups per day. Marital status: . 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 ???Nonsmoker; no sig alcohol. * Medications:?TakingKlor-Con 20 MEQ Packet as directed Orally Once a daySimvastatin Latanoprost Centrum Silver Calcium Magnesium Zinc Losartan Potassium 25 MG Tablet TAKE 1 TABLET BY MOUTH EVERY DAY Oral buPROPion HCl ER (XL) 300 MG Tablet Extended Release 24 Hour TAKE 1 TABLET BY MOUTH EVERY DAY IN THE MORNING Oral twice a weektraZODone HCl 50 MG Tablet TK 1 T PO HS PRN Oral Lansoprazole 30 MG Capsule Delayed Release TAKE 1 CAPSULE BY MOUTH TWICE A DAY Lansoprazole 30 MG Capsule Delayed Release 1 capsule Orally Twice a dayCholestyramine 4 GM/DOSE Powder 1 scoop in an 8 ounce glass of water or orange juice Orally Twice a dayTaking Klor-Con 20 MEQ Packet as directed Orally Once a dayTaking Simvastatin Taking Latanoprost Taking Centrum Silver Taking Calcium Taking Magnesium Taking Zinc Taking Losartan Potassium 25 MG Tablet TAKE 1 TABLET BY MOUTH EVERY DAY Oral Taking buPROPion HCl ER (XL) 300 MG Tablet Extended Release 24 Hour TAKE 1 TABLET BY MOUTH EVERY DAY IN THE MORNING Oral twice a weekTaking traZODone HCl 50 MG Tablet TK 1 T PO HS PRN Oral Taking Lansoprazole 30 MG Capsule Delayed Release TAKE 1 CAPSULE BY MOUTH TWICE A DAY Taking Lansoprazole 30 MG Capsule Delayed Release 1 capsule Orally Twice a dayTaking Cholestyramine 4 GM/DOSE Powder 1 scoop in an 8 ounce glass of water or orange juice Orally Twice a dayUnknownhydroCHLOROthiazide Medication List reviewed and reconciled with the patientUnknown hydroCHLOROthiazide Medication List reviewed and reconciled with the patient * Allergies:?Amlodipine Besyla te: headaches/elevated blood pressureyes[Allergies Verified] Objective: * Vitals:?Wt: 240 lb 6 oz, Ht: 72 in, BMI:32.60 Index, BP: 000/00 mm Hg, Temp: 96.9. * Examination: ???General Examination: ?GENERAL APPEARANCE:?pleasant, well nourished, well developed, in no acute distress.?EYES:?sclera non-icteric.?ORAL CAVITY:?mucosa moist.?NECK/THYROID:?no cervical lymphadenopathy, neck supple.?SKIN:?nonjaundiced, no spider angiomata.?HEART:?S1, S2 normal.?LUNGS:?clear to auscultation bilaterally.?ABDOMEN:?normal bowel sounds, no guarding or rigidity, no guarding or rigidity, no masses palpable, soft, nontender, nondistended.?EXTREMITIES:?no edema.?NEUROLOGIC:?alert and oriented.? Assessment: * Assessment: 1.?Kimball's esophagus with high grade dysplasia - K22.711 (Primary)?2.?Gastroesophageal reflux disease, esophagitis presence not specified - K21.9?3.?Diarrhea - R19.7?4.?Encounter for screening for malignant neoplasm of colon - Z12.11? Overall, Vini appears quite w ell. We did review his most recent upper endoscopy results from last May and obviously that is very good news considering the previous long segment of Kimball's esophagus with high-grade dysplasia. He will continue his current regimen of the lansoprazole twice a day and reports that he will be undergoing a followup endoscopy at [facility] in May of this year. His bowel [...] you advised of this progress as needed. Plan: * Treatment: 2.?Diarrhea? Notes: Continue Cholestyramine powder?? 3.?Encounter for screening f or malignant neoplasm of colon? Notes: Repeat colonoscopy in 2025?? * Procedure Codes:?3017F COLOR ECTAL CA SCREEN DOC [id number] TOBACCO [id number] BP SCR NOT PRFRM REC REASON NOS * Preventive Medicine:? ??Counseling:?Care goal follow-up plan:?Above Normal BMI Follow-up?Giving encouragement to exercise,?BMI management provided?Yes.? * Follow Up:?prn * * Sign off status: Completed true * Provider:?Asaf Rosales MD Date:? 024 Generated for Abrani shon/Reanna/eTransmitting on:?09/20/2024 11:25 AM EST History and Physical Notes * HPI (History of Present Illness) Category Sub-Category Detail Notes Category Not es incontinence I saw Vini in followup today in regard to his underlying history of Kimball's esophagus with high-grade dysplasia, chronic gastroesophageal reflux, diarrhea, and discussion of colorectal cancer screening. I last saw Vini in November of 2022. Since that time he has continued to be followed at [facility] for his Kimball's esophagus with high-grade dysplasia. His most recent upper endoscopy there in May of 2023 revealed no gross evidence of Kimball's esophagus and biopsies from the gastroesophageal junction were also negative for any sign of Kimball's esophagus or dysplasia. He remains on lansoprazole twice a day with good relief of his reflux symptoms. He denies any significant heartburn, dysphagia, anorexia, early satiety, nausea, nor vomiting. He denies abdominal pain, jaundice, nor unintentional weight loss. His bowel movements remained fairly regular with his cholestyramine twice a day. He is not having any significant diarrhea, hematochezia, nor melena. Examination Category Sub-Category Detail Notes Category Not es General Examination GENERAL APPEARANCE: pleasant , well [...]
[2024-09-20 13:53] LABS: Alanine Aminotransferase 31 U/L (0-40); Anion Gap 11 (12-20); Aspartate Amino Transferase 28 U/L (5-37); Blood Urea Nitrogen 17 mg/dL (9-16); Calcium 9.4 mg/dL (8.4-10.2); Carbon Dioxide 28 mmol/L (22-29); Chloride 106 mmol/L (96-108); Cholesterol 147 mg/dL (<200); Estimated Glomerular Filt Rate > 60; Glucose Fasting 98 mg/dL (60-99); HDL Cholesterol 44 mg/dL (>40); LDL Cholesterol Calculated 83 mg/dL (<100); Sodium 141 mmol/L (135-145); Triglycerides 103 mg/dL (<150)
[2024-09-20 14:28] LABS: PSA,Total (Free>4and<10) 0.35 ng/mL (0.00-4.00)
== END 2024-09-20 09:54 | disposition home or self-care (01) ==
LOC: HO.HMGCLDS 09:53
PROVIDERS: PCP Internal Medicine; Visit Provider Internal Medicine
DX: Z12.5 Encounter for screening for malignant neoplasm of prostate (principal); R20.0 Anesthesia of skin; R20.2 Paresthesia of skin; I10 Essential (primary) hypertension; E78.5 Hyperlipidemia, unspecified
CPT/HCPCS: 36415; 80048; 80061; 84153; 84450; 84460